=== PATIENT | female | born 1975 | race Caucasian/White ===

== ENCOUNTER 2022-09-27 07:57 | Inpatient (IN) | payer OTHER ==
--- OUTSIDE RECORDS SUMMARY | 2022-09-27 08:08 | XMS REPORT | Continuity of Care Document ---
:1975 Author Organization [facility] t Address [address] [place] [address] Care Team Providers Name Role Phone Jonathon De Jesus MD Primary Care Physician LIYAH LINDA Attending Clinician Unavailable Hiwot Gilbert MA Attending Clinician Unavailable Zeus Li MD Attending Clinician _SEFP_Chano_Candi Attending Clinician Unavailable Jonathon De Jesus Attending Clinician [phone] Marivel Zaidi Attending Clinician [phone] Jer Wagner MD Attending Clinician JER WAGNER Attending Clinician Unavailable Doctor Unassigned, [place] Attending Clinician Unavailable KELLY ESCOBAR Attending Clinician Unavailable Kelly Escobar MD Attending Clinician Belinda VERGARA Attending Clinician Unavailable Belinda Gleason Attending Clinician Liyah Linda MD Attending Clinician JOSE HUANG Attending Clinician Unavailable GC_SEFP_[place]_N Attending Clinician Unavailable Jonah Bojorquez Attending Clinician Jose Huang DDS Attending Clinician Home ALVAREZ Sebastiannoa Estevez Attending Clinician Lillian Busby Attending Clinician Unavailable Jc Fox MD Attending Clinician LIYAH LINDA Admitting Clinician Unavailable GC_SEFP_Rivera_A Admitting Clinician Unavailable KELLY ESCOBAR Admitting Clinician Unavailable LORNE_[place]_N Admitting Clinician Unavailable Liyah Linda MD Admitting Clinician Lillian Busby Admitting Clinician Unavailable Payers Payer Name Policy Type Policy Number Effective Date Expiration Date S marleen [facility] DUAL [id number] 2020 COMP HMO D SNP 00:00:00 MEDICAID OF [place] [id number] 2016 00:00:00 [facility] - [id number] 2021 [facility] 00:00:00 (MEDICARE REPLACEMENT/ADVANTA GE - HMO) [facility] MEDICARE [id number] COMPLETE (MEDICARE REPLACEMENT HMO) [employer] MEDICARE ADV [id number] 2016 00:00:00 Problems Condition Condition Condition Status Onset Resolution Last Treating Co mments Source Name Details Category Date Date Treatment Clinician Date Right Right Disease Active 2021-09 [facility] renal renal 11-10 stone stone 00:00: Hospita 00 l Arterioscl Arterioscl Disease Active 2021-09 M [facility] erotic erotic 11-10 st vascular vascular 00:00: Hospit a disease disease 00 l Personal Personal Disease Active 2021-09 [facility] di history of history of 10-04 kidney kidney 00:00: Hospita stones stones 00 l Flank pain Flank pain Disease Active 2021-09 M ethodi 10-04 st 00:00: Hospita 00 l Incontinen Incontinen Disease Active 2021-09 M ethodi ce of ce of 1-16 st feces feces 00:00: Hospita 00 l Acute Acute Problem Active 2021-09 [facility] urinary Urinary 0-27 Medical tract Tract 00:00: infection Infection 00 Right Right Problem Active 2021-09 [facility] upper Upper 0-27 Medical quadrant Quadrant 00:00: pain Pain 00 Impaired Impaired Problem Active 2021-09 [facility] a fasting Fasting 0-27 Medical glycemia Glycemia 00:00: 00 Kidney Kidney Problem Active 2021-09 [facility] stone Stone 0-24 Medical 00:00: 00 Anxiety Anxiety Problem Active [facility] 9-08 Medical 00:00: 00 Chest pain Chest Pain Problem Active P [facility] 7-30 Medical 00:00: 00 Drug Drug Disease Active [facility] overdose, overdose, 3-03 [place] accidental [place] Medical unintentio unintentio Br anch nal, nal, initial initial encounter encounter Altered Altered Disease Active Univers mental mental 3-03 ity of status status 00:00: [place] [facility] Hyperkalem Hyperkalem Disease Active U nivers ia ia 3-03 ity of 00:00: [place] 00 [facility] Chronic Chronic Problem Active [facility] diarrhea Diarrhea 9-06 Medica l 00:00: 00 Hyperglyce Hyperglyce Problem Active [facility] ken ken 3-04 Medical 00:00: 00 Candidiasi Candidiasi Problem Active [facility] s of s of 2-25 Medical vagina Vagina 00:00: 00 Thyroid Thyroid Problem Active [facility] nodule Nodule 2-25 Medical 00:00: 00 Bilateral Bilateral Disease Active Uni vers foot-drop foot-drop 2-25 ity of 00:00: [place] 00 Medical Branch Insomnia Insomnia Problem Active [facility] a 2-22 Medical 00:00: 00 Chronic Chronic Problem Active [facility] sinusitis Sinusitis 2-22 Medi harsh 00:00: 00 Persistent Persistent Problem Active [facility] insomnia Insomnia 2-15 Medica l 00:00: 00 Sinusitis Sinusitis Problem Active 0 [facility] via 1-08 Medical 00:00: 00 Hypertrigl Hypertrigl Problem Active [facility] yceridemia yceridemia 9-06 Me dical 00:00: 00 Screening Screening Problem Active [facility] via mammograph Mammograph 05-16 Me dical y y 00:00: 00 Hypertensi Hypertensi Problem Active [facility] ve ve 8-24 Medical disorder Disorder 00:00: 00 Injury due Injury Due Problem Active [facility] to suicide to Suicide 04-09 Me dical attempt Attempt 00:00: 00 Chronic Chronic Problem Active [facility] inflammato Inflammato 7 Me dical ry ry 00:00: 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 Morbid Morbid Disease Active [facility] obesity obesity [address] [facility] 00:00: Hospita 00 l Urinary Urinary Disease Active [facility] tract tract [address] infection infection 00:00: Hosp silvia without without 00 l hematuria hematuria NEETU NEETU Disease Active [facility] (stress (stress [address] urinary urinary 00:00: Hospita incontinen incontinen 00 l ce, ce, female) female) Gastroesop Gastroesop Problem Active [facility] hageal hageal 6-16 Medical reflux Reflux 00:00: disease Disease 00 without without esophagiti Esophagiti s s Lumbar Lumbar Disease Active [facility] spondylosi spondylosi 6-16 it y of s s 00:00: [place] 00 [facility] Branch Gastroesop Gastroesop Disease Active U nivers hageal hageal 6-16 ity of reflux reflux 00:00: [place] disease disease 00 Medical Branch Lateral Lateral Disease Active 2015-09 [facility] epicondyli epicondyli 2-12 it y of tis tis 00:00: Medical Branch Spasm of Spasm of Problem Active 2015-09 [facility] a back Back 1-22 Medical muscles Muscles 00:00: 00 Vitamin D Vitamin D Problem Active [facility] via deficiency Deficiency 5-25 Me dical 00:00: 00 Lack of Lack of Disease Active Univers energy energy 5-25 ity of 00:00: [place] [facility] Fibromyalg Fibromyalg Problem Active [facility] ia ia 3-23 Medical 00:00: 00 Endometrio Endometrio Problem Active [facility] sis of sis of 2-23 Medical uterus Uterus 00:00: 00 Menopause Menopause Problem Active [facility] via present Present 11-11 Medical 00:00: 00 Pure Pure Problem Active 2014-09 [facility] hyperchole Hyperchole 10-13 Me dical sterolemia sterolemia 00:00: 00 Generalize Generalize Problem Active 2014-09 [facility] d anxiety d Anxiety 10-13 [facility] harsh disorder Disorder 00:00: 00 Restless Restless Problem Active 2014-09 [facility] legs Legs 10-13 Medical 00:00: 00 Mild Mild Problem Active 2014-09 [facility] intermitte Intermitte 10-13 Me dical nt asthma nt Asthma 00:00: 00 Lumbago Lumbago Problem Active 2014-09 [facility] with with 10-13 Medical sciatica Sciatica 00:00: 00 Morbid Morbid Problem Active [facility] obesity Obesity 05-13 Medical 00:00: 00 Long-term Long-term Problem Active [facility] via drug Drug 03-14 Medical therapy Therapy 00:00: 00 Patient Patient Problem Active [facility] encounter Encounter 03-14 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 5-20 Me dical neuropathy Neuropathy 00:00: 00 Spondylosi Spondylosi Problem Active [facility] s with s with 5-20 Medical myelopathy Myelopathy 00:00: 00 Anxiety Anxiety Disease Active Univers 5-20 ity of 00:00: [place] 00 Medical Branch Pernicious Pernicious Problem Active [facility] anemia Anemia 6-24 Medical 00:00: 00 Goiter Goiter Problem Active [facility] Medical Anemia Anemia Problem Active [facility] Medical Recurrent Recurrent Problem Active [facility] via major Major Medical depression Depression Tobacco Tobacco Problem Active [facility] user User Medical Disorder Disorder Problem Active [facility] a of brain of Brain Medica l Asthma Asthma Problem Active [facility] Medical Respirator Respirator Problem Active [facility] y failure y Failure [facility] Acute Acute Problem Active [facility] renal Renal Medical failure Failure syndrome Syndrome Chronic Chronic Problem Active [facility] kidney Kidney Medical disease Disease Chronic Chronic Problem Active [facility] back pain Back Pain [facility] Rhabdomyol Rhabdomyol Problem Active [facility] ysis ysis Medical Syncope Syncope Problem Active [facility] Medical ALT (SGPT) ALT (SGPT) Problem Active [facility] level Level Medical raised Raised Occult Occult Problem Active [facility] blood in Blood in Medica l stools Stools Accidental Accidental Problem Active [facility] drug Drug Medical overdose Overdose Polypharma Polypharma Problem Active [facility] cy cy Medical Allergies, Adverse Reactions, Alerts Allergy Allergy Status Severity Reaction(s) Onset Inactive Treating Comm ents Source Name Type Date Date Clinician Nsaids Propensi Active Other - See Cannot Uni vers (Non-Frank ty to comments 11-19 take due ity of roidal adverse 00:00: to being [place] Anti-Inf reaction 00 on blood Medi harsh lammator s to pressure Branch y Drug) drug medicatio n NSAIDS Drug Active High Other-Cmnt Univer s (NON-FRANK Class 3-03 ity of ROIDAL 00:00: [place] ANTI-INF 00 Medical LAMMATOR Branch Y DRUG) Nsaids Propensi Active Other (See Cannot Meth alexandra (Non-Frank ty to Comments) 3-[address] roidal adverse 00:00: to being Hospita Anti-Inf reaction 00 on blood l lammator s to pressure y Drug) drug medicatio n amitript DA Active [facility] amitript DA Active SV PATIENT ADRIENNE [place] STATES IT 04-10 [facility] MAKES HER 00:00: d VERY 00 Medical ANGRESSIVE Center AMITRIPT DRUG Active High Unknown-Cmnt Un ynes ARAMBULA INGREDI 12-18 ity of 00:00: [place] 00 Medical Branch Amitript Drug Active Other - See Patient Un ynes [place] Allergy comments 12-18 stated ity of 00:00: made her [place] 00 angry Medical wanting Branch to hurt herself and others Amitript Propensi Active Other (See Patient M chuy [place] ty to Comments) 12-[address] adverse 00:00: made her Hospita reaction 00 angry l s to wanting drug to hurt herself and others AMITRIPT Allergy Active Other [facility] SAAVEDRAINE to 12-18 Medical substanc 00:00: e 00 Amitript Allergy Active Other [facility] saavedraine to 12-18 Medical substanc 00:00: e 00 Family History Family Member Diagnosis Comments Start Date Stop Date Source Natural father [facility] Natural mother [facility] Social History Social Habit Start Date Stop Date Quantity Comments Source History of Current smoker [facility] tobacco use Exposure to Not sure [facility]-CoV-2 [facility] (event) [place] Alcohol intake 2022-09-09 2022-09-09 [facility] 00:00:00 00:00:00 non-drinker of alcohol (finding) Tobacco Comment 2020-11-28 2020-11-28 vaps [facility] y of 00:00:00 00:00:00 [facility] Tobacco use and 2018-01-11 2018-01-11 Smokeless tobacco [facility] exposure 00:00:00 00:00:00 non-user Sex [birth year] [facility] 00:00:00 00:00:00 Smoking Status Start Date Stop Date Source Light Tobacco Smoker Fa[facility]o Medi harsh Current every day 2020-11-28 00:[facility] Ex-smoker 2018-01-11 00:00:00 2018-01-11 00:00:00 [facility] Medications Ordered Filled Start Stop Current Ordering Indication Dosage Frequency Signature Comments Components Source Medication Medication Date Date Medication? Clinician (SIG) Name Name escarmenlone 2021-09 Yes 1 tablet Me basilio (Lunesta) 3 2-[address] mg tablet 10:03: y before Hosp silvia 54 bedtime l TiZANidine 2021-09 Yes 4mg 1 capsule Me basilio (Zanaflex) 2-22 ([address] 4 MG 10:03: total). Hospita capsule 53 l PARoxetine 2021-09 Yes 1 tablet Met hodi (PaxiL) 40 2-[address] MG tablet 10:03: morning Hospi ta 53 l naloxegoL 2021-09 Yes 1 tablet Meth alexandra (Movantik) 2-[address] 25 mg 10:03: morning Hospita tablet 53 l tablet levothyroxi 2021-09 Yes 25ug 1 tablet Me milaodi ne 2-22 ([address] (Synthroid) 10:03: total). Hos cayla 25 mcg 53 l tablet diclofenac 2021-09 Yes TAKE 1 Metho di (VOLTAREN) 1-[address] 75 MG EC 00:00: TWICE A Hospit a tablet 00 DAY BY FOR l 22 DAYS. Flovent HFA 2021-09 Yes USE 1 PUFF [facility] 110 1-[address] mcg/actuati 00:00: DAY Hosp silvia on inhaler 00 NEEDED l fenofibrate 2021-09 Yes 160mg QD Take 1 Met hodi (LOFIBRA) -[address] 160 MG 00:00: (160 mg Hospita tablet 00 total) by l mouth daily. levoFLOXaci 2021-09- No 500mg QD Take 1 Me milaodi n - 12- tablet st (Levaquin) 00:00: 05:59 (500 mg Hos cayla 500 MG 00 :00 total) by l tablet mouth daily for 7 days. PARoxetine 2021-09- No Take 1 Meth alexandra (PAXIL) 40 1-16 11-[address] MG tablet 14:46: 00:00 every day Ho spita 43 :00 by oral l route. tiZANidine 2021-09- No TAKE 2 Meth alexandra (ZANAFLEX) 1-16 11-16 TABLET(S) st 4 MG tablet 14:42: 00:00 3 TIMES A Hospita 47 :00 DAY BY l ORAL ROUTE FOR 30 DAYS. simvastatin 2021-09- No Take 1 Met hodi (ZOCOR) 10 -16 11-[address] MG tablet 14:42: 00:00 every day Ho spita 43 :00 by oral l route at bedtime. lisinopril 2021-09- No Take 1 Meth alexandra (PRINIVIL,Z -16 11-[address] ESTRIL) 10 14:42: 00:00 every day H ospita mg tablet 33 :00 by oral l route. levothyroxi 2021-09- No Take 1 Met hodi ne -16 11-[address] (SYNTHROID, 14:42: 00:00 every day Hospita LEVOXYL) 25 30 :00 by oral l mcg tablet route. diazePAM 2021-09- No Take 1 Method i (VALIUM) 5 -16 11-[address] MG tablet 14:42: 00:00 twice a Hosp silvia 26 :00 day by l oral route. diclofenac 2021-09- No diclofenac [facility] (VOLTAREN) -16 -[address] 50 MG EC 14:42: 00:00 mg Hospita tablet 26 :00 tablet,del l ayed release TAKE 1 TABLET BY MOUTH TWICE A DAY FOR 28 DAYS cyclobenzap 2021-09- No TAKE 1 Met hodi rine -16 11-[address] (FLEXERIL) 14:42: 00:00 MOUTH Hospi ta 10 mg 25 :00 THREE l tablet TIMES DAILY ARIPiprazol 2021-09- No Take 1 Met hodi e (ABILIFY) -16 11-[address] 2 MG tablet 14:42: 00:00 times a Ho spita 21 :00 day by l oral route. traZODone 2021-09 Yes trazodone Met hodi (DESYREL) 1-[address] 50 MG 13:43: tablet Hospita tablet 46 TAKE 1 l TABLET BY MOUTH EVERY DAY NEEDED FOR 90 DAYS ferrous 2021-09 Yes ferrous [facility] sulfate 325 1-[address] (65 FE) MG 13:43: 325 mg (65 H ospita tablet 45 mg iron) l tablet TAKE 1 TABLET BY MOUTH EVERY DAY dexlansopra 2021-09 Yes 60mg QD Take 1 Meth alexandra zole 1-[address] (DEXILANT) 00:00: (60 mg Hospi ta 60 mg 00 total) by l capsule mouth daily. atorvastati 2021-09 Yes 40mg QD Take 1 Meth alexandra n (LIPITOR) 0-17 tablet (40 st 40 mg 00:00: mg total) Hospita tablet 00 by mouth l daily. losartan 2021-09 Yes 100mg QD Take 1 Method i (COZAAR) 0-[address] 100 MG 00:00: (100 mg Hospita tablet 00 total) by l mouth daily. amLODIPine 2021-09 Yes 10mg QD Take 1 Metho di (NORVASC) 0-06 tablet (10 st 10 mg 00:00: mg total) Hospita tablet 00 by mouth l every morning. hydroCHLORO Yes 12.5mg QD Take 1 Me thodi thiazide 8-[address] (HYDRODIURI 00:00: (12.5 mg Ho spita L) 12.5 MG 00 total) by l tablet mouth daily. HYDROcodone Yes 7.5{tbl Take Uni vers -acetaminop 3-03 } 7.5-325 ity o f hen 7.5-325 15:46: tablets by [place] mg per 12 mouth 3 Medical tablet (three) Branch times daily as needed. HYDROcodone Yes 7.5{tbl Take Uni vers -acetaminop 3-03 } 7.5-325 ity o f hen 7.5-325 15:46: tablets by [place] mg per 12 mouth 3 Medical tablet (three) Branch times daily as needed. HYDROcodone 0 Yes 7.5{tbl Take Uni vers -acetaminop 2-22 } 7.5-325 ity o f hen 7.5-325 00:00: tablets by [place] mg per 00 mouth 3 Medical tablet (three) Branch times daily as needed. HYDROcodone 0 Yes 7.5{tbl Take Uni vers -acetaminop 2-22 } 7.5-325 ity o f hen 7.5-325 00:00: tablets by [place] mg per 00 mouth 3 Medical tablet (three) Branch times daily as needed. ARIPiprazol Yes Take 1 Meth alexandra e (ABILIFY) 2-[address] 2 MG tablet 11:56: times a Hos cayla 18 day by l oral route. cyclobenzap Yes TAKE 1 Meth alexandra rine 2-[address] (FLEXERIL) 11:56: MOUTH Hospit a 10 mg 18 THREE l tablet TIMES DAILY pregabalin Yes TAKE 1 Metho di (LYRICA) 2-[address] 150 MG 11:56: MOUTH Hospita capsule 18 THREE l TIMES DAILY HYDROcodone Yes Take 1 Meth alexandra -acetaminop 2-[address] hen (NORCO) 11:56: every 6 Hos cayla 10-325 mg 18 hours by l per tablet oral route as needed for 30 days. diazePAM Yes Take 1 [facility] (VALIUM) 5 2-[address] MG tablet 11:56: twice a Hospi ta 18 day by l oral route. lisinopril Yes Take 1 Metho di (PRINIVIL,Z 2-[address] ESTRIL) 10 11:56: every day Ho spita mg tablet 18 by oral l route. levothyroxi Yes Take 1 Meth alexandra ne 2-[address] (SYNTHROID, 11:56: every day H ospita LEVOXYL) 25 18 by oral l mcg tablet route. pregabalin Yes TAKE 1 Metho di (LYRICA) 2-[address] 150 MG 11:56: MOUTH Hospita capsule 18 THREE l TIMES DAILY HYDROcodone Yes Take 1 Meth alexandra -acetaminop 2-[address] hen (NORCO) 11:56: every 6 Hos cayla 10-325 mg 18 hours by l per tablet oral route as needed for 30 days. simvastatin Yes Take 1 Meth alexandra (ZOCOR) 10 2-[address] MG tablet 11:56: every day Hos cayla 18 by oral l route at bedtime. tiZANidine Yes TAKE 2 Metho di (ZANAFLEX) 2-02 TABLET(S) st 4 MG tablet 11:56: 3 TIMES A H ospita 18 DAY BY l ORAL ROUTE FOR 30 DAYS. PARoxetine Yes Take 1 Metho di (PAXIL) 40 2-[address] MG tablet 11:56: every day Hos cayla 18 by oral l route. pregabalin 2020-09 Yes 150mg Take 150 Un ynes 150 mg 2-16 mg by ity of capsule 00:00: mouth 3 (three) Medical times Branch daily. pregabalin 2020-09 Yes 150mg Take 150 Un ynes 150 mg 2-16 mg by ity of capsule 00:00: mouth 3 (three) Medical times Branch daily. ceftriaxone ceftriaxone 2020-09 No ceftriaxon [facility] 1 gram 1 gram 1-23 e 1 gram Medical solution solution 12:14: solution for for 21 for injectionTa injectionTa injectionT ke 1 g by ke 1 g by gabriela 1 g by injection injection injection route. route. route. azelastine Yes [id number] 1{spray Use 1 Univers 137 mcg 6-30 } [place] in ity of (0.1 %) 00:00: each [place] nasal spray 00 nostril 2 Med ical (two) Branch times daily. Use in each nostril as directed azelastine Yes [id number] 1{spray Use 1 Univers 137 mcg 6-30 } [place] in ity of (0.1 %) 00:00: each [place] nasal spray 00 nostril 2 Med ical (two) Branch times daily. Use in each nostril as directed cloNIDine Yes [id number] .1mg Take 1 Un ynes 0.1 mg 4-27 tablet by ity of tablet 00:00: mouth 2 (two) Medical times Branch daily as needed for Other (bp > 180 , HR > 70). cloNIDine Yes [id number] .1mg Take 1 Un ynes 0.1 mg 4-27 tablet by ity of tablet 00:00: mouth 2 (two) Medical times Branch daily as needed for Other (bp > 180 , HR > 70). OCTAGAM 10 Yes Univers % Soln 4-13 ity of 00:00: 00 Medical Branch OCTAGAM 10 Yes Univers % Soln 4-13 ity of 00:00: Medical Branch ferrous Yes ferrous Univers sulfate 325 3-26 sulfate ity o f mg (65 mg 08:05: 325 mg (65 [place] iron) 58 mg iron) Medical tablet tablet Branch TAKE 1 TABLET BY MOUTH EVERY DAY traZODone Yes 1{tbl} Take 1 Univ ers 50 mg 3-26 tablet by ity of tablet 08:05: mouth at [place] 58 bedtime. Medical Branch ferrous Yes ferrous Univers sulfate 325 3-26 sulfate ity o f mg (65 mg 08:05: 325 mg (65 [place] iron) 58 mg iron) Medical tablet tablet Branch TAKE 1 TABLET BY MOUTH EVERY DAY traZODone Yes 1{tbl} Take 1 Univ ers 50 mg 3-26 tablet by ity of tablet 08:05: mouth at [place] 58 bedtime. Medical Branch MULTIVITAMI Yes 1{capsu Take 1 U nivers N ORAL 3-18 le} capsule by ity of 11:52: mouth [place] 33 daily. Medical Branch Cholecalcif Yes D3-1999 50 Univers larry, 3-18 mcg (2,000 ity of Vitamin D3, 11:52: unit) [place] 50 mcg 33 capsule Medical (2,000 Take 1 Branch unit) capsule capsule every day by oral route. cyanocobala Yes 1000ug 1,000 mcg Univers min 1,000 3-18 by ity of mcg/mL 11:52: Intramuscu [place] injection 33 lar route Medic al every 4 Branch (four) weeks. Dexlansopra Yes Dexilant Un ynes zole 3-18 60 mg ity of (DEXILANT) 11:52: capsule, [place] as 60 mg 33 delayed Medical capsule release Branch Take 1 capsule every day by oral route for 30 days. albuterol Yes Ventolin Univ ers (VENTOLIN 3-18 HFA 90 ity of HFA) 90 11:52: mcg/actuat [place] mcg/actuati 33 ion Medical on inhaler aerosol Branch inhaler busPIRone Yes buspirone Uni vers 10 mg 3-18 10 mg ity of tablet 11:52: tablet [place] 33 Medical Branch MULTIVITAMI Yes 1{capsu Take 1 U nivers N ORAL 3-18 le} capsule by ity of 11:52: mouth [place] 33 daily. Medical Branch Cholecalcif 2021-0 Yes D3-1999 50 Univers larry, 3-18 mcg (2,000 ity of Vitamin D3, 11:52: unit) [place] 50 mcg 33 capsule Medical (2,000 Take 1 Branch unit) capsule capsule every day by oral route. cyanocobala Yes 1000ug 1,000 mcg Univers min 1,000 3-18 by ity of mcg/mL 11:52: Intramuscu [place] injection 33 lar route Medic al every 4 Branch (four) weeks. Dexlansopra Yes Dexilant Un ynes zole 3-18 60 mg ity of (DEXILANT) 11:52: capsule, [place] as 60 mg 33 delayed Medical capsule release Branch Take 1 capsule every day by oral route for 30 days. albuterol Yes Ventolin Univ ers (VENTOLIN 3-18 HFA 90 ity of HFA) 90 11:52: mcg/actuat [place] mcg/actuati 33 ion Medical on inhaler aerosol Branch inhaler busPIRone Yes buspirone Uni vers 10 mg 3-18 10 mg ity of tablet 11:52: tablet [place] [id number] Medical Branch HYDROcodone Yes Take 1/2 Un ynes -acetaminop 3-18 to 1 tab ity of hen (NORCO) 00:00: PO every [place] 10-325 mg 00 4-6 hrs as Medi harsh tablet needed for Branch severe pain; use tylenol or ibuprofen for mild to moderate pain Indication s: postop pain mupirocin 2 Yes [id number] Apply Univers % ointment 3-18 inside ity of 00:00: both nasal [place] 00 cavities Medical using q Branch tip 2-3 times daily after using saline spray/sinu s rinse HYDROcodone Yes Take 1/2 Un ynes -acetaminop 3-18 to 1 tab ity of hen (NORCO) 00:00: PO every [place] 10-325 mg 00 4-6 hrs as Medi harsh tablet needed for Branch severe pain; use tylenol or ibuprofen for mild to moderate pain Indication s: postop pain mupirocin 2 Yes [id number] Apply Univers % ointment 3-18 inside ity of 00:00: both nasal [place] 00 cavities Medical using q Branch tip 2-3 times daily after using saline spray/sinu s rinse HYDROcodone Yes 1{tbl} Take 1 Un ynes -acetaminop 1-20 tablet by ity of hen 10-325 00:00: mouth as [place] as mg tablet 00 needed. Medical Branch HYDROcodone Yes 1{tbl} Take 1 Un ynes -acetaminop 1-20 tablet by ity of hen 10-325 00:00: mouth as [place] as mg tablet 00 needed. Medical Branch chlorhexidi Yes [id number] 15mL Swish and Univers ne 1-06 spit out ity of (PERIDEX) 00:00: 15 mL 2 [place] 0.12 % 00 (two) Medical mouthwash times Branch daily. methylPREDN Yes [id number] Take by Univers ISolone 4 1-06 mouth ity of mg tablets 00:00: SEE-INSTRU [place] 00 CTIONS. Medical follow Branch package directions chlorhexidi Yes [id number] 15mL Swish and Univers ne 1-06 spit out ity of (PERIDEX) 00:00: 15 mL 2 [place] 0.12 % 00 (two) Medical mouthwash times Branch daily. methylPREDN Yes [id number] Take by Univers ISolone 4 1-06 mouth ity of mg tablets 00:00: [place]INSTRU [place] 00 CTIONS. Medical follow Branch package directions cyclobenzap 2019-09 Yes 10mg Take 10 mg [facility] 10 mg 2-22 by mouth ity o f tablet 00:00: as needed. [place] [facility] cyclobenzap 2019-09 Yes 10mg Take 10 mg [facility] rine 10 mg 2-22 by mouth ity o f tablet 00:00: as needed. [place] [facility] FLOVENT HFA 2019-09 Yes [facility] 110 2-21 ity of mcg/actuati 00:00: [place] on inhaler Medical Branch FLOVENT HFA 2019-09 Yes [facility] 110 2-21 ity of mcg/actuati 00:00: [place] on inhaler [facility] metoprolol 2019-09 Yes metoprolol M ethodi tartrate 2-[address] (LOPRESSOR) 00:00: 50 mg Hospi ta 50 mg 00 tablet l tablet TAKE 1 TABLET TWICE A DAY BY ORAL ROUTE FOR 90 DAYS. albuterol 2019-09 Yes [facility] 90 2-18 ity of mcg/actuati 00:00: [place] on inhaler 00 Medical Branch metoprolol 2019-09 Yes 1{tbl} Take 1 [facility] vers tartrate 50 2-18 tablet by ity of mg tablet 00:00: mouth 2 (two) Medical times Branch daily. albuterol 2019-09 Yes [facility] 90 2-18 ity of mcg/actuati 00:00: [place] on inhaler 00 Medical Branch metoprolol 2019-09 Yes 1{tbl} Take 1 [facility] vers tartrate 50 2-18 tablet by ity of mg tablet 00:00: mouth 2 (two) Medical times Branch daily. busPIRone 2019-09 Yes buspirone [facility] (BUSPAR) 10 2-[address] [facility] tablet 00:00: tablet [facility] 00 TAKE 1 l TABLET TWICE A DAY BY ORAL ROUTE FOR 90 DAYS. busPIRone 2019-09 Yes 1{tbl} Take 1 [facility] ers 10 mg 2-03 tablet by ity of tablet 00:00: mouth 2 (two) Medical times Branch daily. busPIRone 2019-09 Yes 1{tbl} Take 1 [facility] ers 10 mg 2-03 tablet by ity of tablet 00:00: mouth 2 (two) Medical times Branch daily. DULoxetine 2019-09 Yes 1{capsu Take 1 [facility] 60 mg 2-01 le} capsule by ity of capsule 00:00: mouth [place] 00 every Medical morning. Branch Fenofibrate 2019-09 Yes 1{tbl} Take 1 [facility] 160 mg 2-01 tablet by ity of tablet 00:00: mouth [place] 00 daily. Medical Branch DULoxetine 2019-09 Yes 1{capsu Take 1 [facility] 60 mg 2-01 le} capsule by ity of capsule 00:00: mouth 00 every Medical morning. Branch Fenofibrate 2019-09 Yes 1{tbl} Take 1 [facility] 160 mg 2-01 tablet by ity of tablet 00:00: mouth [place] 00 daily. Medical Branch furosemide 2019-09 Yes 1{tbl} Take 1 [facility] vers 20 mg 1-19 tablet by ity of tablet 00:00: mouth as 00 needed. Medical Swelling [facility] furosemide 2019-09 Yes 1{tbl} Take 1 [facility] vers 20 mg 1-19 tablet by ity of tablet 00:00: mouth as 00 needed. Medical Swelling [facility] atorvastati 2019-09 Yes 1{tbl} Take 1 [facility] n 40 mg 0-31 tablet by ity of tablet 00:00: mouth [place] 00 daily. Medical Branch atorvastati 2019-09 Yes 1{tbl} Take 1 [facility] n 40 mg 0-31 tablet by ity of tablet 00:00: mouth 00 daily. Medical Branch DULoxetine 2019-09 Yes 20mg QD Take 1 [facility] di (CYMBALTA) 0-[address] 20 MG 00:00: (20 mg [facility]osp[facility] capsule 00 total) by l mouth nightly. DULoxetine 2019-09 Yes 1{capsu Take 1 [facility] 20 mg 0-30 le} capsule by ity of capsule 00:00: mouth at [place] bedtime. Medical Branch lisinopriL 2019-09 Yes 1{tbl} Take 1 [facility] vers 20 mg 0-30 tablet by ity of tablet 00:00: mouth 00 daily. Medical Branch DULoxetine 2019-09 Yes 1{capsu Take 1 [facility] 20 mg 0-30 le} capsule by ity of capsule 00:00: mouth at [place] bedtime. Medical Branch lisinopriL 2019-09 Yes 1{tbl} Take 1 [facility] vers 20 mg 0-30 tablet by ity of tablet 00:00: mouth 00 daily. Medical Branch GAMMAGARD 2019-09 Yes [facility] LIQUID 10 % 0-20 ity of injection 00:00: 00 Medical Branch GAMMAGARD 2019-09 Yes [facility] LIQUID 10 % 0-20 ity of injection 00:00: [place] 00 Medical Branch pregabalin 2019-09 Yes 1{capsu Take 1 [facility] 150 mg 0-14 le} capsule by ity of capsule 00:00: mouth 3 (three) Medical times Branch daily. pregabalin 2019-09 Yes 1{capsu Take 1 [facility] 150 mg 0-14 le} capsule by ity of capsule 00:00: mouth 3 (three) Medical times Branch daily. omeprazole Yes TAKE 1 Metho di (PriLOSEC) 3-12 CAPSULE(S) st 40 MG 00:00: EVERY DAY [facility]osp[facility] capsule 00 BY ORAL l ROUTE. ipratropium Yes USE 1 VIAL [facility] -albuterol 3-[address] (DUO-NEB) 00:00: NEBULIZER [facility] 0.5-2.5 00 EVERY 6 l mg/mL HOURS nebulizer NEEDED omeprazole 2017- Yes TAKE 1 Metho di (PriLOSEC) 3-12 CAPSULE(S) st 40 MG 00:00: EVERY DAY [facility] capsule 00 BY ORAL l ROUTE. ipratropium 2017- Yes USE 1 VIAL [facility] -albuterol 3-[address] (DUO-NEB) 00:00: NEBULIZER [facility] 0.5-2.5 00 EVERY 6 l mg/mL HOURS nebulizer NEEDED cyclobenzap 2017- Yes 10mg [id number] Take 10 mg [facility] rine -09 [id number] [address] mouth [address] (FLEXERIL) 00:00: 3D (three) [facility] 10 mg 00 times a l tablet day. tiZANidine Yes TAKE 2 Metho di (ZANAFLEX) 3-09 TABLET(S) st 4 MG tablet 00:00: 3 TIMES A [facility] 00 DAY BY l ORAL ROUTE FOR 30 DAYS. nitrofurant Yes TAKE 1 Meth alexandra oin, - CAPSULE(S) st macrocrysta 00:00: EVERY DAY [facility]sp[facility] l-monohydra 00 BY ORAL l te, ROUTE FOR (MACROBID) 30 DAYS. 100 MG capsule cyclobenzap Yes 10mg [id number] Take 10 mg [facility] rine -09 [id number] by mouth 3 [address] (FLEXERIL) 00:00: 3D (three) [facility] 10 mg 00 times a l tablet day. tiZANidine 2021- No TAKE 2 Meth alexandra (ZANAFLEX) -05 30-16 TABLET(S) st 4 MG tablet 00:00: 00:00 3 TIMES A Hosp[facility] 00 :00 DAY BY l ORAL ROUTE FOR 30 DAYS. nitrofurant 2021- No TAKE 1 [facility] oin, -05 30-16 CAPSULE(S) st macrocrysta 00:00: 00:00 EVERY DAY [facility]osp[facility] l-monohydra 00 :00 BY ORAL l te, ROUTE FOR (MACROBID) 30 DAYS. 100 MG capsule rOPINIRole Yes TAKE 1 Metho di (REQUIP) 1 2-12 TABLET(S) st MG tablet 00:00: EVERY DAY [facility] 00 BY ORAL l ROUTE. rOPINIRole 2021- No TAKE 1 Meth alexandra (REQUIP) 1 2-12 11-16 TABLET(S) st MG tablet 00:00: 00:00 EVERY DAY Ho [facility] 00 :00 BY ORAL l ROUTE. phentermine Yes 37.5mg QD Take 37.5 [facility] (ADIPEX-P) 2-[address] 37.5 mg 00:00: mouth [facility]osp[facility] tablet 00 daily. l phentermine 2021- No 37.5mg QD Take 37.5 [facility] (ADIPEX-P) 2-09 11-[address] 37.5 mg 00:00: 00:00 mouth [facility]osp[facility] tablet 00 :00 daily. l PROAIR HFA Yes INHALE 2 Met [facility] 90 1-[address] mcg/actuati 00:00: (S) EVERY H [facility]sp[facility] on inhaler 00 4-6 HOURS l BY INHALATION ROUTE. PROAIR HFA Yes INHALE 2 [facility] 90 1-[address] mcg/actuati 00:00: (S) EVERY H [facility] on inhaler 00 4-6 HOURS l BY INHALATION ROUTE. pregabalin pregabalin No 1capsul TID pregabalin [facility] 150 mg 150 mg e(s) 150 mg Medical capsule capsule capsule Take 1 Take 1 Take 1 capsule 3 capsule 3 capsule 3 times a day times a day times a by oral by oral day by route as route as oral route needed for needed for as needed 90 days. 90 days. for 90 days. Pyridium Pyridium No 1 TID Pyridium [facility] via 200 mg 200 mg 200 mg Medical tablet Take tablet Take tablet 1 tablet 3 1 tablet 3 Take 1 times a day times a day tablet 3 by oral by oral times a route for 2 route for 2 day by days. days. oral route for 2 days. trazodone trazodone No trazodone [facility] 50 mg 50 mg 50 mg Medical tablet Take tablet Take tablet 1 tablet 1 tablet Take 1 every day every day tablet by oral by oral every day route at route at by oral bedtime for bedtime for route at 90 days. 90 days. bedtime for 90 days. albuterol albuterol No albuterol [facility] sulfate HFA sulfate HFA sulfate Medical 90 90 HFA 90 mcg/actuati mcg/actuati mcg/actuat on aerosol on aerosol ion inhaler inhaler aerosol Inhale 2 Inhale 2 inhaler puffs every puffs every Inhale 2 6 hours by 6 hours by puffs inhalation inhalation every 6 route as route as hours by needed for needed for inhalation 90 days. 90 days. route as needed for 90 days. atorvastati atorvastati No atorvastat [facility] n 40 mg n 40 mg in 40 mg Medic al tablet Take tablet Take tablet 1 tablet 1 tablet Take 1 every day every day tablet by oral by oral every day route for route for by oral 90 days. 90 days. route for 90 days. buspirone buspirone No 1 BID buspirone [facility] 10 mg 10 mg 10 mg [facility] tablet Take tablet Take tablet 1 tablet 1 tablet Take 1 twice a day twice a day tablet by oral by oral twice a route for route for day by 90 days. 90 days. oral route for 90 days. ceftriaxone ceftriaxone No 1g ceftriaxon [facility] 1 gram 1 gram e 1 gram Medical solution solution solution for for for injection injection injection Take 1 g by Take 1 g by Take 1 g injection injection by route. route. injection route. chlorhexidi chlorhexidi No chlorhexid [facility] ne ne ine Medical gluconate gluconate gluconate 0.12 % 0.12 % 0.12 % mouthwash mouthwash mouthwash SWISH AND SWISH AND SWISH AND SPIT OUT 15 SPIT OUT 15 SPIT OUT ML 2 (TWO) ML 2 (TWO) 15 ML 2 TIMES TIMES (TWO) DAILY. DAILY. TIMES DAILY. ciprofloxac ciprofloxac No ciprofloxa [facility] in 500 mg in 500 mg rambo 500 mg Medical tablet Take tablet Take tablet 1 tablet 1 tablet Take 1 every 12 every 12 tablet hours by hours by every 12 oral route oral route hours by for 7 days. for 7 days. oral route for 7 days. clonidine clonidine No clonidine [facility] HCl 0.1 mg HCl 0.1 mg HCl 0.1 mg Medical tablet Take tablet Take tablet 1 tablet 1 tablet Take 1 with with tablet elevated BP elevated BP with elevated BP cyanocobala cyanocobala No 1mL Q1W cyanocobal [facility] min (vit min (vit tracey (vit Me dical B-12) 1,000 B-12) 1,000 B-12) mcg/mL mcg/mL 1,000 injection injection mcg/mL solution solution injection Inject 1 mL Inject 1 mL solution every week every week Inject 1 by by mL every subcutaneou subcutaneou week by s route for s route for subcutaneo 90 days. 90 days. us route for 90 days. cyclobenzap cyclobenzap No cyclobenza [facility] rine 10 mg rine 10 mg grayson 10 Medical tablet TAKE tablet TAKE mg tablet 1 TABLET BY 1 TABLET BY TAKE 1 MOUTH EVERY MOUTH EVERY TABLET BY DAY AT DAY AT MOUTH BEDTIME BEDTIME EVERY DAY NEEDED NEEDED AT BEDTIME NEEDED D3-1999 50 D3-2000 50 No 1capsul Q1D D3-1999 50 [facility] mcg (2,000 mcg (2,000 e(s) mcg (2,000 Medical unit) unit) unit) capsule capsule capsule Take 1 Take 1 Take 1 capsule capsule capsule every day every day every day by oral by oral by oral route. route. route. Dexilant 60 Dexilant 60 No Dexilant [facility] mg capsule, mg capsule, 60 mg Medical delayed delayed capsule, release release delayed TAKE 1 TAKE 1 release CAPSULE BY CAPSULE BY TAKE 1 MOUTH EVERY MOUTH EVERY CAPSULE BY DAY DAY MOUTH EVERY DAY duloxetine duloxetine No duloxetine [facility] 60 mg 60 mg 60 mg Medical capsule,del capsule,del capsule,de ayed ayed layed release release release TAKE 1 TAKE 1 TAKE 1 CAPSULE BY CAPSULE BY CAPSULE BY MOUTH EVERY MOUTH EVERY MOUTH DAY IN THE DAY IN THE EVERY DAY MORNING MORNING IN THE MORNING fenofibrate fenofibrate No fenofibrat [facility] 160 mg 160 mg e 160 mg Medical tablet TAKE tablet TAKE tablet 1 TABLET BY 1 TABLET BY TAKE 1 MOUTH EVERY MOUTH EVERY TABLET BY DAY DAY MOUTH EVERY DAY Flovent HFA Flovent HFA No Flovent [facility] 110 110 HFA 110 Medical mcg/actuati mcg/actuati mcg/actuat on aerosol on aerosol ion inhaler inhaler aerosol Inhale 1 Inhale 1 inhaler puff twice puff twice Inhale 1 a day by a day by puff twice inhalation inhalation a day by route as route as inhalation needed for needed for route as 90 days. 90 days. needed for 90 days. hydrocodone hydrocodone No hydrocodon [facility] 10 10 e 10 Medical mg-acetamin mg-acetamin mg-acetami ophen 325 ophen 325 nophen 325 mg tablet mg tablet mg tablet TAKE 1 TAKE 1 TAKE 1 TABLET BY TABLET BY TABLET BY MOUTH THREE MOUTH THREE MOUTH TIMES A DAY TIMES A DAY THREE NEEDED NEEDED TIMES A FOR PAIN FOR PAIN DAY MAX 3/DAY MAX 3/DAY NEEDED FOR PAIN MAX 3/DAY lisinopril lisinopril No lisinopril [facility] 20 mg 20 mg 20 mg [facility] tablet Take tablet Take tablet 1 tablet 1 tablet Take 1 twice a day twice a day tablet by oral by oral twice a route for route for day by 90 days. 90 days. oral route for 90 days. metoprolol metoprolol No metoprolol [facility] tartrate 50 tartrate 50 tartrate Medical mg tablet mg tablet 50 mg Take 1 Take 1 tablet tablet tablet Take 1 twice a day twice a day tablet by oral by oral twice a route for route for day by 90 days. 90 days. oral route for 90 days. phenazopyri phenazopyri No phenazopyr [facility] dine 200 mg dine 200 mg idine 200 Medical tablet Take tablet Take mg tablet 1 tablet 3 1 tablet 3 Take 1 times a day times a day tablet 3 by oral by oral times a route for 2 route for 2 day by days. days. oral route for 2 days. pregabalin pregabalin No pregabalin [facility] 150 mg 150 mg 150 mg Medical capsule capsule capsule Take 1 Take 1 Take 1 capsule 3 capsule 3 capsule 3 times a day times a day times a by oral by oral day by route as route as oral route needed for needed for as needed 90 days. 90 days. for 90 days. trazodone trazodone No trazodone [facility] 50 mg 50 mg 50 mg Medical tablet Take tablet Take tablet 1 tablet 1 tablet Take 1 every day every day tablet by oral by oral every day route at route at by oral bedtime for bedtime for route at 90 days. 90 days. bedtime for 90 days. albuterol albuterol No albuterol [facility] sulfate HFA sulfate HFA sulfate Medical 90 90 HFA 90 mcg/actuati mcg/actuati mcg/actuat on aerosol on aerosol ion inhaler inhaler aerosol Inhale 2 Inhale 2 inhaler puffs every puffs every Inhale 2 6 hours by 6 hours by puffs inhalation inhalation every 6 route as route as hours by needed for needed for inhalation 90 days. 90 days. route as needed for 90 days. atorvastati atorvastati No atorvastat [facility] n 40 mg n 40 mg in 40 mg Medic al tablet Take tablet Take tablet 1 tablet 1 tablet Take 1 every day every day tablet by oral by oral every day route for route for by oral 90 days. 90 days. route for 90 days. buspirone buspirone No buspirone [facility] 10 mg 10 mg 10 mg Medical tablet TAKE tablet TAKE tablet 1 TABLET 1 TABLET TAKE 1 TWICE A DAY TWICE A DAY TABLET BY ORAL BY ORAL TWICE A ROUTE FOR ROUTE FOR DAY BY 90 DAYS. 90 DAYS. ORAL ROUTE FOR 90 DAYS. chlorhexidi chlorhexidi No chlorhexid [facility] ne ne ine Medical gluconate gluconate gluconate 0.12 % 0.12 % 0.12 % mouthwash mouthwash mouthwash SWISH AND SWISH AND SWISH AND SPIT OUT 15 SPIT OUT 15 SPIT OUT ML 2 (TWO) ML 2 (TWO) 15 ML 2 TIMES TIMES (TWO) DAILY. DAILY. TIMES DAILY. clonidine clonidine No clonidine [facility] HCl 0.1 mg HCl 0.1 mg HCl 0.1 mg Medical tablet TAKE tablet TAKE tablet 1 TABLET BY 1 TABLET BY TAKE 1 MOUTH MOUTH TABLET BY NEEDED FOR NEEDED FOR MOUTH BLOOD BLOOD NEEDED FOR PRESSURE PRESSURE BLOOD ABOVE ABOVE PRESSURE 170/100 170/100 ABOVE 170/100 cyanocobala cyanocobala No cyanocobal [facility] min (vit min (vit tracey (vit Me dical B-12) 1,000 B-12) 1,000 B-12) mcg/mL mcg/mL 1,000 injection injection mcg/mL solution solution injection INJECT 1ML INJECT 1ML solution EVERY WEEK EVERY WEEK INJECT 1ML BY BY EVERY WEEK SUBCUTANEOU SUBCUTANEOU BY S ROUTE S ROUTE SUBCUTANEO NOT COVD NOT COVD US ROUTE 95$$ 95$$ NOT COVD 95$$ cyclobenzap cyclobenzap No cyclobenza [facility] rine 10 mg rine 10 mg grayson 10 Medical tablet TAKE tablet TAKE mg tablet 1 TABLET BY 1 TABLET BY TAKE 1 MOUTH EVERY MOUTH EVERY TABLET BY DAY FOR 30 DAY FOR 30 MOUTH DAYS DAYS EVERY DAY FOR 30 DAYS D3-1999 50 D3-2000 50 No 1capsul Q1D D3-1999 50 [facility] mcg (2,000 mcg (2,000 e(s) mcg (2,000 Medical unit) unit) unit) capsule capsule capsule Take 1 Take 1 Take 1 capsule capsule capsule every day every day every day by oral by oral by oral route. route. route. Dexilant 60 Dexilant 60 No Dexilant [facility] mg capsule, mg capsule, 60 mg Medical delayed delayed capsule, release release delayed TAKE 1 TAKE 1 release CAPSULE BY CAPSULE BY TAKE 1 MOUTH EVERY MOUTH EVERY CAPSULE BY DAY DAY MOUTH EVERY DAY diclofenac diclofenac No diclofenac [facility] sodium 50 sodium 50 sodium 50 Medical mg mg mg tablet,kris tablet,kris tablet,del yed release yed release ayed TAKE 1 TAKE 1 release TABLET BY TABLET BY TAKE 1 MOUTH EVERY MOUTH EVERY TABLET BY DAY FOR 30 DAY FOR 30 MOUTH DAYS DAYS EVERY DAY FOR 30 DAYS duloxetine duloxetine No duloxetine [facility] 60 mg 60 mg 60 mg Medical capsule,del capsule,del capsule,de ayed ayed layed release release release Take 1 Take 1 Take 1 capsule capsule capsule every day every day every day by oral by oral by oral route in route in route in the morning the morning the for 90 for 90 morning days. days. for 90 days. fenofibrate fenofibrate No fenofibrat [facility] 160 mg 160 mg e 160 mg Medical tablet TAKE tablet TAKE tablet 1 TABLET BY 1 TABLET BY TAKE 1 MOUTH EVERY MOUTH EVERY TABLET BY DAY DAY MOUTH EVERY DAY Flovent HFA Flovent HFA No Flovent [facility] 110 110 HFA 110 Medical mcg/actuati mcg/actuati mcg/actuat on aerosol on aerosol ion inhaler inhaler aerosol INHALE 1 INHALE 1 inhaler PUFF TWICE PUFF TWICE INHALE 1 A DAY BY A DAY BY PUFF TWICE INHALATION INHALATION A DAY BY NEEDED. NEEDED. INHALATION NEEDED. hydrochloro hydrochloro No hydrochlor [facility] thiazide thiazide othiazide Me dical 12.5 mg 12.5 mg 12.5 mg tablet TAKE tablet TAKE tablet 1 TABLET BY 1 TABLET BY TAKE 1 MOUTH EVERY MOUTH EVERY TABLET BY DAY FOR 30 DAY FOR 30 MOUTH DAYS DAYS EVERY DAY FOR 30 DAYS hydrocodone hydrocodone No hydrocodon [facility] 10 10 e 10 Medical mg-acetamin mg-acetamin mg-acetami ophen 325 ophen 325 nophen 325 mg tablet mg tablet mg tablet TAKE 1 TAKE 1 TAKE 1 TABLET BY TABLET BY TABLET BY MOUTH THREE MOUTH THREE MOUTH TIMES A DAY TIMES A DAY THREE NEEDED NEEDED TIMES A FOR PAIN FOR PAIN DAY MAX 3/DAY MAX 3/DAY NEEDED FOR PAIN MAX 3/DAY hydrocodone hydrocodone No hydrocodon [facility] 7.5 7.5 e 7.5 Medical mg-acetamin mg-acetamin mg-acetami ophen 325 ophen 325 nophen 325 mg tablet mg tablet mg tablet TAKE 1 TAKE 1 TAKE 1 TABLET BY TABLET BY TABLET BY MOUTH THREE MOUTH THREE MOUTH TIMES A DAY TIMES A DAY THREE NEEDED NEEDED TIMES A FOR 30 DAYS FOR 30 DAYS DAY NEEDED FOR 30 DAYS lisinopril lisinopril No lisinopril [facility] 20 mg 20 mg 20 mg Medical tablet Take tablet Take tablet 1 tablet 1 tablet Take 1 twice a day twice a day tablet by oral by oral twice a route for route for day by 90 days. 90 days. oral route for 90 days. losartan losartan No losartan [facility] via 100 mg 100 mg 100 mg Medical tablet TAKE tablet TAKE tablet 1 TABLET BY 1 TABLET BY TAKE 1 MOUTH EVERY MOUTH EVERY TABLET BY DAY FOR 30 DAY FOR 30 MOUTH DAYS DAYS EVERY DAY FOR 30 DAYS metoprolol metoprolol No metoprolol [facility] tartrate 50 tartrate 50 tartrate Medical mg tablet mg tablet 50 mg Take 1 Take 1 tablet tablet tablet Take 1 twice a day twice a day tablet by oral by oral twice a route for route for day by 90 days. 90 days. oral route for 90 days. phenazopyri phenazopyri No phenazopyr [facility] dine 200 mg dine 200 mg idine 200 Medical tablet Take tablet Take mg tablet 1 tablet 3 1 tablet 3 Take 1 times a day times a day tablet 3 by oral by oral times a route for 2 route for 2 day by days. days. oral route for 2 days. pregabalin pregabalin No pregabalin [facility] 150 mg 150 mg 150 mg Medical capsule capsule capsule Take 1 Take 1 Take 1 capsule 3 capsule 3 capsule 3 times a day times a day times a by oral by oral day by route as route as oral route needed for needed for as needed 90 days. 90 days. for 90 days. trazodone trazodone No trazodone [facility] 50 mg 50 mg 50 mg Medical tablet TAKE tablet TAKE tablet 1 TABLET BY 1 TABLET BY TAKE 1 MOUTH MOUTH TABLET BY EVERYDAY AT EVERYDAY AT MOUTH BEDTIME BEDTIME EVERYDAY AT BEDTIME albuterol albuterol No albuterol [facility] sulfate HFA sulfate HFA sulfate Medical 90 90 HFA 90 mcg/actuati mcg/actuati mcg/actuat on aerosol on aerosol ion inhaler inhaler aerosol Inhale 2 Inhale 2 inhaler puffs every puffs every Inhale 2 6 hours by 6 hours by puffs inhalation inhalation every 6 route as route as hours by needed for needed for inhalation 90 days. 90 days. route as needed for 90 days. atorvastati atorvastati No atorvastat [facility] n 40 mg n 40 mg in 40 mg Medic al tablet Take tablet Take tablet 1 tablet 1 tablet Take 1 every day every day tablet by oral by oral every day route for route for by oral 90 days. 90 days. route for 90 days. buspirone buspirone No buspirone [facility] 10 mg 10 mg 10 mg Medical tablet TAKE tablet TAKE tablet 1 TABLET 1 TABLET TAKE 1 TWICE A DAY TWICE A DAY TABLET BY ORAL BY ORAL TWICE A ROUTE FOR ROUTE FOR DAY BY 90 DAYS. 90 DAYS. ORAL ROUTE FOR 90 DAYS. chlorhexidi chlorhexidi No chlorhexid [facility] ne ne ine Medical gluconate gluconate gluconate 0.12 % 0.12 % 0.12 % mouthwash mouthwash mouthwash SWISH AND SWISH AND SWISH AND SPIT OUT 15 SPIT OUT 15 SPIT OUT ML 2 (TWO) ML 2 (TWO) 15 ML 2 TIMES TIMES (TWO) DAILY. DAILY. TIMES DAILY. clonidine clonidine No clonidine [facility] HCl 0.1 mg HCl 0.1 mg HCl 0.1 mg Medical tablet TAKE tablet TAKE tablet 1 TABLET BY 1 TABLET BY TAKE 1 MOUTH MOUTH TABLET BY NEEDED FOR NEEDED FOR MOUTH BLOOD BLOOD NEEDED FOR PRESSURE PRESSURE BLOOD ABOVE ABOVE PRESSURE 170/100 170/100 ABOVE 170/100 cyanocobala cyanocobala No cyanocobal [facility] min (vit min (vit tracey (vit Me dical B-12) 1,000 B-12) 1,000 B-12) mcg/mL mcg/mL 1,000 injection injection mcg/mL solution solution injection INJECT 1ML INJECT 1ML solution EVERY WEEK EVERY WEEK INJECT 1ML BY BY EVERY WEEK SUBCUTANEOU SUBCUTANEOU BY S ROUTE S ROUTE SUBCUTANEO NOT COVD NOT COVD US ROUTE 95$$ 95$$ NOT COVD 95$$ cyclobenzap cyclobenzap No cyclobenza [facility] rine 10 mg rine 10 mg grayson 10 Medical tablet TAKE tablet TAKE mg tablet 1 TABLET BY 1 TABLET BY TAKE 1 MOUTH EVERY MOUTH EVERY TABLET BY DAY DAY MOUTH EVERY DAY D3-2000 50 D3-2000 50 No 1capsul Q1D D3-1999 50 [facility] mcg (2,000 mcg (2,000 e(s) mcg (2,000 Medical unit) unit) unit) capsule capsule capsule Take 1 Take 1 Take 1 capsule capsule capsule every day every day every day by oral by oral by oral route. route. route. Dexilant 60 Dexilant 60 No Dexilant [facility] mg capsule, mg capsule, 60 mg Medical delayed delayed capsule, release release delayed TAKE 1 TAKE 1 release CAPSULE BY CAPSULE BY TAKE 1 MOUTH EVERY MOUTH EVERY CAPSULE BY DAY DAY MOUTH EVERY DAY diclofenac diclofenac No diclofenac [facility] sodium 50 sodium 50 sodium 50 Medical mg mg mg tablet,kris tablet,kris tablet,del yed release yed release ayed TAKE 1 TAKE 1 release TABLET BY TABLET BY TAKE 1 MOUTH EVERY MOUTH EVERY TABLET BY DAY DAY MOUTH EVERY DAY duloxetine duloxetine No duloxetine [facility] 60 mg 60 mg 60 mg Medical capsule,del capsule,del capsule,de ayed ayed layed release release release Take 1 Take 1 Take 1 capsule capsule capsule every day every day every day by oral by oral by oral route in route in route in the morning the morning the for 90 for 90 morning days. days. for 90 days. fenofibrate fenofibrate No fenofibrat [facility] 160 mg 160 mg e 160 mg Medical tablet TAKE tablet TAKE tablet 1 TABLET BY 1 TABLET BY TAKE 1 MOUTH EVERY MOUTH EVERY TABLET BY DAY DAY MOUTH EVERY DAY Flovent HFA Flovent HFA No Flovent [facility] 110 110 HFA 110 Medical mcg/actuati mcg/actuati mcg/actuat on aerosol on aerosol ion inhaler inhaler aerosol INHALE 1 INHALE 1 inhaler PUFF TWICE PUFF TWICE INHALE 1 A DAY BY A DAY BY PUFF TWICE INHALATION INHALATION A DAY BY NEEDED. NEEDED. INHALATION NEEDED. hydrochloro hydrochloro No hydrochlor [facility] thiazide thiazide othiazide Me dical 12.5 mg 12.5 mg 12.5 mg tablet TAKE tablet TAKE tablet 1 TABLET BY 1 TABLET BY TAKE 1 MOUTH EVERY MOUTH EVERY TABLET BY DAY FOR 30 DAY FOR 30 MOUTH DAYS DAYS EVERY DAY FOR 30 DAYS hydrocodone hydrocodone No hydrocodon [facility] 10 10 e 10 Medical mg-acetamin mg-acetamin mg-acetami ophen 325 ophen 325 nophen 325 mg tablet mg tablet mg tablet TAKE 1 TAKE 1 TAKE 1 TABLET BY TABLET BY TABLET BY MOUTH THREE MOUTH THREE MOUTH TIMES A DAY TIMES A DAY THREE NEEDED NEEDED TIMES A FOR PAIN FOR PAIN DAY MAX 3/DAY MAX 3/DAY NEEDED FOR PAIN MAX 3/DAY hydrocodone hydrocodone No hydrocodon [facility] 7.5 7.5 e 7.5 [facility] mg-acetamin mg-acetamin mg-acetami ophen 325 ophen 325 nophen 325 mg tablet mg tablet mg tablet TAKE 1 TAKE 1 TAKE 1 TABLET 3 TABLET 3 TABLET 3 TIMES A DAY TIMES A DAY TIMES A BY ORAL BY ORAL DAY BY ROUTE ROUTE ORAL ROUTE NEEDED FOR NEEDED FOR NEEDED 28 DAYS. 28 DAYS. FOR 28 DAYS. lisinopril lisinopril No lisinopril [facility] 20 mg 20 mg 20 mg [facility] tablet Take tablet Take tablet 1 tablet 1 tablet Take 1 twice a day twice a day tablet by oral by oral twice a route for route for day by 90 days. 90 days. oral route for 90 days. losartan losartan No losartan [facility] via 100 mg 100 mg 100 mg Medical tablet TAKE tablet TAKE tablet 1 TABLET BY 1 TABLET BY TAKE 1 MOUTH EVERY MOUTH EVERY TABLET BY DAY FOR 30 DAY FOR 30 MOUTH DAYS DAYS EVERY DAY FOR 30 DAYS metoprolol metoprolol No metoprolol [facility] tartrate 50 tartrate 50 tartrate Medical mg tablet mg tablet 50 mg Take 1 Take 1 tablet tablet tablet Take 1 twice a day twice a day tablet by oral by oral twice a route for route for day by 90 days. 90 days. oral route for 90 days. phenazopyri phenazopyri No phenazopyr [facility] dine 200 mg dine 200 mg idine 200 Medical tablet Take tablet Take mg tablet 1 tablet 3 1 tablet 3 Take 1 times a day times a day tablet 3 by oral by oral times a route for 2 route for 2 day by days. days. oral route for 2 days. pregabalin pregabalin No pregabalin [facility] 150 mg 150 mg 150 mg Medical capsule capsule capsule TAKE 1 TAKE 1 TAKE 1 CAPSULE BY CAPSULE BY CAPSULE BY MOUTH 3 MOUTH 3 MOUTH 3 TIMES A DAY TIMES A DAY TIMES A NEEDED NEEDED DAY FOR 90 DAYS FOR 90 DAYS NEEDED FOR 90 DAYS trazodone trazodone No trazodone [facility] 50 mg 50 mg 50 mg Medical tablet TAKE tablet TAKE tablet 1 TABLET BY 1 TABLET BY TAKE 1 MOUTH MOUTH TABLET BY EVERYDAY AT EVERYDAY AT MOUTH BEDTIME BEDTIME EVERYDAY AT BEDTIME albuterol albuterol No albuterol [facility] sulfate HFA sulfate HFA sulfate Medical 90 90 HFA 90 mcg/actuati mcg/actuati mcg/actuat on aerosol on aerosol ion inhaler inhaler aerosol Inhale 2 Inhale 2 inhaler puffs every puffs every Inhale 2 6 hours by 6 hours by puffs inhalation inhalation every 6 route as route as hours by needed for needed for inhalation 90 days. 90 days. route as needed for 90 days. atorvastati atorvastati No 1 Q1D atorvastat [facility] n 40 mg n 40 mg in 40 mg Medic al tablet Take tablet Take tablet 1 tablet 1 tablet Take 1 every day every day tablet by oral by oral every day route for route for by oral 90 days. 90 days. route for 90 days. buspirone buspirone No buspirone [facility] 10 mg 10 mg 10 mg Medical tablet TAKE tablet TAKE tablet 1 TABLET 1 TABLET TAKE 1 TWICE A DAY TWICE A DAY TABLET BY ORAL BY ORAL TWICE A ROUTE FOR ROUTE FOR DAY BY 90 DAYS. 90 DAYS. ORAL ROUTE FOR 90 DAYS. chlorhexidi chlorhexidi No chlorhexid [facility] ne ne ine Medical gluconate gluconate gluconate 0.12 % 0.12 % 0.12 % mouthwash mouthwash mouthwash SWISH AND SWISH AND SWISH AND SPIT OUT 15 SPIT OUT 15 SPIT OUT ML 2 (TWO) ML 2 (TWO) 15 ML 2 TIMES TIMES (TWO) DAILY. DAILY. TIMES DAILY. clonidine clonidine No clonidine [facility] HCl 0.1 mg HCl 0.1 mg HCl 0.1 mg Medical tablet TAKE tablet TAKE tablet 1 TABLET BY 1 TABLET BY TAKE 1 MOUTH MOUTH TABLET BY NEEDED FOR NEEDED FOR MOUTH BLOOD BLOOD NEEDED FOR PRESSURE PRESSURE BLOOD ABOVE ABOVE PRESSURE 170/100 170/100 ABOVE 170/100 cyanocobala cyanocobala No cyanocobal [facility] min (vit min (vit tracey (vit Me dical B-12) 1,000 B-12) 1,000 B-12) mcg/mL mcg/mL 1,000 injection injection mcg/mL solution solution injection INJECT 1ML INJECT 1ML solution EVERY WEEK EVERY WEEK INJECT 1ML BY BY EVERY WEEK SUBCUTANEOU SUBCUTANEOU BY S ROUTE S ROUTE SUBCUTANEO NOT COVD NOT COVD US ROUTE 95$$ 95$$ NOT COVD 95$$ cyclobenzap cyclobenzap No cyclobenza [facility] rine 10 mg rine 10 mg grayson 10 Medical tablet TAKE tablet TAKE mg tablet 1 TABLET BY 1 TABLET BY TAKE 1 MOUTH EVERY MOUTH EVERY TABLET BY DAY DAY MOUTH EVERY DAY D3-1999 50 D3-2000 50 No 1capsul Q1D D3-1999 50 [facility] mcg (2,000 mcg (2,000 e(s) mcg (2,000 Medical unit) unit) unit) capsule capsule capsule Take 1 Take 1 Take 1 capsule capsule capsule every day every day every day by oral by oral by oral route. route. route. Dexilant 60 Dexilant 60 No Dexilant [facility] mg capsule, mg capsule, 60 mg Medical delayed delayed capsule, release release delayed TAKE 1 TAKE 1 release CAPSULE BY CAPSULE BY TAKE 1 MOUTH EVERY MOUTH EVERY CAPSULE BY DAY DAY MOUTH EVERY DAY diclofenac diclofenac No diclofenac [facility] sodium 50 sodium 50 sodium 50 Medical mg mg mg tablet,kris tablet,kris tablet,del yed release yed release ayed TAKE 1 TAKE 1 release TABLET BY TABLET BY TAKE 1 MOUTH EVERY MOUTH EVERY TABLET BY DAY DAY MOUTH EVERY DAY duloxetine duloxetine No duloxetine [facility] 60 mg 60 mg 60 mg Medical capsule,del capsule,del capsule,de ayed ayed layed release release release Take 1 Take 1 Take 1 capsule capsule capsule every day every day every day by oral by oral by oral route in route in route in the morning the morning the for 90 for 90 morning days. days. for 90 days. fenofibrate fenofibrate No fenofibrat [facility] 160 mg 160 mg e 160 mg Medical tablet TAKE tablet TAKE tablet 1 TABLET BY 1 TABLET BY TAKE 1 MOUTH EVERY MOUTH EVERY TABLET BY DAY DAY MOUTH EVERY DAY Flovent HFA Flovent HFA No Flovent [facility] 110 110 HFA 110 Medical mcg/actuati mcg/actuati mcg/actuat on aerosol on aerosol ion inhaler inhaler aerosol INHALE 1 INHALE 1 inhaler PUFF TWICE PUFF TWICE INHALE 1 A DAY BY A DAY BY PUFF TWICE INHALATION INHALATION A DAY BY NEEDED. NEEDED. INHALATION NEEDED. hydrochloro hydrochloro No hydrochlor [facility] thiazide thiazide othiazide Me dical 12.5 mg 12.5 mg 12.5 mg tablet TAKE tablet TAKE tablet 1 TABLET BY 1 TABLET BY TAKE 1 MOUTH EVERY MOUTH EVERY TABLET BY DAY DAY MOUTH EVERY DAY hydrocodone hydrocodone No hydrocodon [facility] 7.5 7.5 e 7.5 Medical mg-acetamin mg-acetamin mg-acetami ophen 325 ophen 325 nophen 325 mg tablet mg tablet mg tablet TAKE 1 TAKE 1 TAKE 1 TABLET 3 TABLET 3 TABLET 3 TIMES A DAY TIMES A DAY TIMES A BY ORAL BY ORAL DAY BY ROUTE ROUTE ORAL ROUTE NEEDED FOR NEEDED FOR NEEDED 28 DAYS. 28 DAYS. FOR 28 DAYS. losartan losartan No 1 Q1D losartan [facility] via 100 mg 100 mg 100 mg Medical tablet Take tablet Take tablet 1 tablet 1 tablet Take 1 every day every day tablet by oral by oral every day route for route for by oral 90 days. 90 days. route for 90 days. metoprolol metoprolol No metoprolol [facility] tartrate 50 tartrate 50 tartrate Medical mg tablet mg tablet 50 mg TAKE 1 TAKE 1 tablet TABLET TABLET TAKE 1 TWICE A DAY TWICE A DAY TABLET BY ORAL BY ORAL TWICE A ROUTE FOR ROUTE FOR DAY BY 90 DAYS. 90 DAYS. ORAL ROUTE FOR 90 DAYS. pregabalin pregabalin No pregabalin [facility] 150 mg 150 mg 150 mg Medical capsule capsule capsule TAKE 1 TAKE 1 TAKE 1 CAPSULE BY CAPSULE BY CAPSULE BY MOUTH 3 MOUTH 3 MOUTH 3 TIMES A DAY TIMES A DAY TIMES A NEEDED NEEDED DAY FOR 90 DAYS FOR 90 DAYS NEEDED FOR 90 DAYS trazodone trazodone No trazodone [facility] 50 mg 50 mg 50 mg Medical tablet TAKE tablet TAKE tablet 1 TABLET BY 1 TABLET BY TAKE 1 MOUTH MOUTH TABLET BY EVERYDAY AT EVERYDAY AT MOUTH BEDTIME BEDTIME EVERYDAY AT BEDTIME albuterol albuterol No albuterol [facility] sulfate HFA sulfate HFA sulfate Medical 90 90 HFA 90 mcg/actuati mcg/actuati mcg/actuat on aerosol on aerosol ion inhaler inhaler aerosol INHALE 2 INHALE 2 inhaler PUFFS EVERY PUFFS EVERY INHALE 2 6 HOURS BY 6 HOURS BY PUFFS INHALATION INHALATION EVERY 6 ROUTE ROUTE HOURS BY NEEDED FOR NEEDED FOR INHALATION 90 DAYS. 90 DAYS. ROUTE NEEDED FOR 90 DAYS. atorvastati atorvastati No atorvastat [facility] n 40 mg n 40 mg in 40 mg Medic al tablet TAKE tablet TAKE tablet 1 TABLET BY 1 TABLET BY TAKE 1 MOUTH EVERY MOUTH EVERY TABLET BY DAY DAY MOUTH EVERY DAY Bactrim DS Bactrim DS No 1 Q12H Bactrim DS [facility] 800 mg-160 800 mg-160 800 mg-160 Medical mg tablet mg tablet mg tablet Take 1 Take 1 Take 1 tablet tablet tablet every 12 every 12 every 12 hours by hours by hours by oral route oral route oral route as directed as directed as for 14 for 14 directed days. days. for 14 days. buspirone buspirone No 1 BID buspirone [facility] 10 mg 10 mg 10 mg Medical tablet Take tablet Take tablet 1 tablet 1 tablet Take 1 twice a day twice a day tablet by oral by oral twice a route for route for day by 90 days. 90 days. oral route for 90 days. chlorhexidi chlorhexidi No chlorhexid [facility] ne ne ine Medical gluconate gluconate gluconate 0.12 % 0.12 % 0.12 % mouthwash mouthwash mouthwash SWISH AND SWISH AND SWISH AND SPIT OUT 15 SPIT OUT 15 SPIT OUT ML 2 (TWO) ML 2 (TWO) 15 ML 2 TIMES TIMES (TWO) DAILY. DAILY. TIMES DAILY. clonidine clonidine No clonidine [facility] HCl 0.1 mg HCl 0.1 mg HCl 0.1 mg Medical tablet TAKE tablet TAKE tablet 1 TABLET BY 1 TABLET BY TAKE 1 MOUTH MOUTH TABLET BY NEEDED FOR NEEDED FOR MOUTH BLOOD BLOOD NEEDED FOR PRESSURE PRESSURE BLOOD ABOVE ABOVE PRESSURE 170/100 170/100 ABOVE 170/100 cyanocobala cyanocobala No cyanocobal [facility] min (vit min (vit tracey (vit Me dical B-12) 1,000 B-12) 1,000 B-12) mcg/mL mcg/mL 1,000 injection injection mcg/mL solution solution injection INJECT 1ML INJECT 1ML solution EVERY WEEK EVERY WEEK INJECT 1ML BY BY EVERY WEEK SUBCUTANEOU SUBCUTANEOU BY S ROUTE S ROUTE SUBCUTANEO NOT COVD NOT COVD US ROUTE 95$$ 95$$ NOT COVD 95$$ cyclobenzap cyclobenzap No cyclobenza [facility] rine 10 mg rine 10 mg grayson 10 Medical tablet TAKE tablet TAKE mg tablet 1 TABLET 1 TABLET TAKE 1 EVERY DAY EVERY DAY TABLET BY ORAL BY ORAL EVERY DAY ROUTE FOR ROUTE FOR BY ORAL 23 DAYS. 23 DAYS. ROUTE FOR 23 DAYS. D3-2000 50 D3-2000 50 No 1capsul Q1D D3-2000 50 [facility] mcg (2,000 mcg (2,000 e(s) mcg (2,000 Medical unit) unit) unit) capsule capsule capsule Take 1 Take 1 Take 1 capsule capsule capsule every day every day every day by oral by oral by oral route. route. route. dexlansopra dexlansopra No dexlansopr [facility] zole 60 mg zole 60 mg azole 60 Medical capsule,bip capsule,bip mg hase hase capsule,bi delayed delayed phase release release delayed TAKE 1 TAKE 1 release CAPSULE BY CAPSULE BY TAKE 1 MOUTH EVERY MOUTH EVERY CAPSULE BY DAY DAY MOUTH EVERY DAY diclofenac diclofenac No diclofenac [facility] sodium 50 sodium 50 sodium 50 Medical mg mg mg tablet,kris tablet,kris tablet,del yed release yed release ayed TAKE 1 TAKE 1 release TABLET TABLET TAKE 1 EVERY DAY EVERY DAY TABLET BY ORAL BY ORAL EVERY DAY ROUTE FOR ROUTE FOR BY ORAL 23 DAYS. 23 DAYS. ROUTE FOR 23 DAYS. duloxetine duloxetine No 1capsul Q1D duloxetine [facility] 60 mg 60 mg e(s) 60 mg Medical capsule,del capsule,del capsule,de ayed ayed layed release release release Take 1 Take 1 Take 1 capsule capsule capsule every day every day every day by oral by oral by oral route for route for route for 90 days. 90 days. 90 days. fenofibrate fenofibrate No fenofibrat [facility] 160 mg 160 mg e 160 mg Medical tablet TAKE tablet TAKE tablet 1 TABLET BY 1 TABLET BY TAKE 1 MOUTH EVERY MOUTH EVERY TABLET BY DAY DAY MOUTH EVERY DAY Flovent HFA Flovent HFA No Flovent [facility] 110 110 HFA 110 Medical mcg/actuati mcg/actuati mcg/actuat on aerosol on aerosol ion inhaler inhaler aerosol INHALE 1 INHALE 1 inhaler PUFF TWICE PUFF TWICE INHALE 1 A DAY A DAY PUFF TWICE NEEDED. NEEDED. A DAY NEEDED. fluconazole fluconazole No fluconazol [facility] 150 mg 150 mg e 150 mg Medical tablet tablet tablet hydrochloro hydrochloro No hydrochlor [facility] thiazide thiazide othiazide Me dical 12.5 mg 12.5 mg 12.5 mg tablet TAKE tablet TAKE tablet 1 TABLET BY 1 TABLET BY TAKE 1 MOUTH EVERY MOUTH EVERY TABLET BY DAY DAY MOUTH EVERY DAY hydrocodone hydrocodone No hydrocodon [facility] 7.5 7.5 e 7.5 Medical mg-acetamin mg-acetamin mg-acetami ophen 325 ophen 325 nophen 325 mg tablet mg tablet mg tablet TAKE 1 TAKE 1 TAKE 1 TABLET 3 TABLET 3 TABLET 3 TIMES A DAY TIMES A DAY TIMES A BY ORAL BY ORAL DAY BY ROUTE ROUTE ORAL ROUTE NEEDED FOR NEEDED FOR NEEDED 23 DAYS. 23 DAYS. FOR 23 DAYS. losartan losartan No losartan [facility] via 100 mg 100 mg 100 mg Medical tablet TAKE tablet TAKE tablet 1 TABLET BY 1 TABLET BY TAKE 1 MOUTH EVERY MOUTH EVERY TABLET BY DAY DAY MOUTH EVERY DAY metoprolol metoprolol No 1 BID metoprolol [facility] tartrate 50 tartrate 50 tartrate Medical mg tablet mg tablet 50 mg Take 1 Take 1 tablet tablet tablet Take 1 twice a day twice a day tablet by oral by oral twice a route for route for day by 90 days. 90 days. oral route for 90 days. mupirocin 2 mupirocin 2 No mupirocin [facility] % topical % topical 2 % Medic al ointment ointment topical APPLY A APPLY A ointment SMALL SMALL APPLY A AMOUNT TO AMOUNT TO SMALL THE THE AMOUNT TO AFFECTED AFFECTED THE AREA BY AREA BY AFFECTED TOPICAL TOPICAL AREA BY ROUTE 3 ROUTE 3 TOPICAL TIMES PER TIMES PER ROUTE 3 DAY DAY TIMES PER DAY pregabalin pregabalin No 1capsul TID pregabalin [facility] 150 mg 150 mg e(s) 150 mg Medical capsule capsule capsule Take 1 Take 1 Take 1 capsule 3 capsule 3 capsule 3 times a day times a day times a by oral by oral day by route for route for oral route 90 days. 90 days. for 90 days. trazodone trazodone No 1 Q1D trazodone [facility] 50 mg 50 mg 50 mg Medical tablet Take tablet Take tablet 1 tablet 1 tablet Take 1 every day every day tablet by oral by oral every day route for route for by oral 90 days. 90 days. route for 90 days. albuterol albuterol No albuterol [facility] sulfate HFA sulfate HFA sulfate Medical 90 90 HFA 90 mcg/actuati mcg/actuati mcg/actuat on aerosol on aerosol ion inhaler inhaler aerosol INHALE 2 INHALE 2 inhaler PUFFS EVERY PUFFS EVERY INHALE 2 6 HOURS BY 6 HOURS BY PUFFS INHALATION INHALATION EVERY 6 ROUTE ROUTE HOURS BY NEEDED FOR NEEDED FOR INHALATION 90 DAYS. 90 DAYS. ROUTE NEEDED FOR 90 DAYS. atorvastati atorvastati No atorvastat [facility] n 40 mg n 40 mg in 40 mg Medic al tablet TAKE tablet TAKE tablet 1 TABLET BY 1 TABLET BY TAKE 1 MOUTH EVERY MOUTH EVERY TABLET BY DAY DAY MOUTH EVERY DAY buspirone buspirone No buspirone [facility] 10 mg 10 mg 10 mg Medical tablet TAKE tablet TAKE tablet 1 TABLET 1 TABLET TAKE 1 TWICE A DAY TWICE A DAY TABLET BY ORAL BY ORAL TWICE A ROUTE FOR ROUTE FOR DAY BY 90 DAYS. 90 DAYS. ORAL ROUTE FOR 90 DAYS. chlorhexidi chlorhexidi No chlorhexid [facility] ne ne ine Medical gluconate gluconate gluconate 0.12 % 0.12 % 0.12 % mouthwash mouthwash mouthwash SWISH AND SWISH AND SWISH AND SPIT OUT 15 SPIT OUT 15 SPIT OUT ML 2 (TWO) ML 2 (TWO) 15 ML 2 TIMES TIMES (TWO) DAILY. DAILY. TIMES DAILY. clonidine clonidine No clonidine [facility] HCl 0.1 mg HCl 0.1 mg HCl 0.1 mg Medical tablet TAKE tablet TAKE tablet 1 TABLET BY 1 TABLET BY TAKE 1 MOUTH MOUTH TABLET BY NEEDED FOR NEEDED FOR MOUTH BLOOD BLOOD NEEDED FOR PRESSURE PRESSURE BLOOD ABOVE ABOVE PRESSURE 170/100 170/100 ABOVE 170/100 cyanocobala cyanocobala No cyanocobal [facility] min (vit min (vit tracey (vit Me dical B-12) 1,000 B-12) 1,000 B-12) mcg/mL mcg/mL 1,000 injection injection mcg/mL solution solution injection INJECT 1ML INJECT 1ML solution EVERY WEEK EVERY WEEK INJECT 1ML BY BY EVERY WEEK SUBCUTANEOU SUBCUTANEOU BY S ROUTE S ROUTE SUBCUTANEO NOT COVD NOT COVD US ROUTE 95$$ 95$$ NOT COVD 95$$ cyclobenzap cyclobenzap No cyclobenza [facility] rine 10 mg rine 10 mg grayson 10 Medical tablet TAKE tablet TAKE mg tablet 1 TABLET BY 1 TABLET BY TAKE 1 MOUTH EVERY MOUTH EVERY TABLET BY DAY DAY MOUTH EVERY DAY D3-2000 50 D3-2000 50 No 1capsul Q1D D3-1999 50 [facility] mcg (2,000 mcg (2,000 e(s) mcg (2,000 Medical unit) unit) unit) capsule capsule capsule Take 1 Take 1 Take 1 capsule capsule capsule every day every day every day by oral by oral by oral route. route. route. dexlansopra dexlansopra No dexlansopr [facility] zole 60 mg zole 60 mg azole 60 Medical capsule,bip capsule,bip mg hase hase capsule,bi delayed delayed phase release release delayed TAKE 1 TAKE 1 release CAPSULE BY CAPSULE BY TAKE 1 MOUTH EVERY MOUTH EVERY CAPSULE BY DAY DAY MOUTH EVERY DAY diclofenac diclofenac No diclofenac [facility] sodium 50 sodium 50 sodium 50 Medical mg mg mg tablet,kris tablet,kris tablet,del yed release yed release ayed TAKE 1 TAKE 1 release TABLET BY TABLET BY TAKE 1 MOUTH TWICE MOUTH TWICE TABLET BY A DAY FOR A DAY FOR MOUTH 28 DAYS 28 DAYS TWICE A DAY FOR 28 DAYS duloxetine duloxetine No duloxetine [facility] 60 mg 60 mg 60 mg Medical capsule,del capsule,del capsule,de ayed ayed layed release release release Take 1 Take 1 Take 1 capsule capsule capsule every day every day every day by oral by oral by oral route for route for route for 90 days. 90 days. 90 days. fenofibrate fenofibrate No fenofibrat [facility] 160 mg 160 mg e 160 mg Medical tablet TAKE tablet TAKE tablet 1 TABLET BY 1 TABLET BY TAKE 1 MOUTH EVERY MOUTH EVERY TABLET BY DAY DAY MOUTH EVERY DAY Flovent HFA Flovent HFA No Flovent [facility] 110 110 HFA 110 Medical mcg/actuati mcg/actuati mcg/actuat on aerosol on aerosol ion inhaler inhaler aerosol INHALE 1 INHALE 1 inhaler PUFF TWICE PUFF TWICE INHALE 1 A DAY A DAY PUFF TWICE NEEDED. NEEDED. A DAY NEEDED. fluconazole fluconazole No fluconazol [facility] 150 mg 150 mg e 150 mg Medical tablet tablet tablet hydrochloro hydrochloro No hydrochlor [facility] thiazide thiazide othiazide Me dical 12.5 mg 12.5 mg 12.5 mg tablet TAKE tablet TAKE tablet 1 TABLET BY 1 TABLET BY TAKE 1 MOUTH EVERY MOUTH EVERY TABLET BY DAY DAY MOUTH EVERY DAY hydrocodone hydrocodone No hydrocodon [facility] 7.5 7.5 e 7.5 Medical mg-acetamin mg-acetamin mg-acetami ophen 325 ophen 325 nophen 325 mg tablet mg tablet mg tablet TAKE 1 TAKE 1 TAKE 1 TABLET BY TABLET BY TABLET BY MOUTH THREE MOUTH THREE MOUTH TIMES A DAY TIMES A DAY THREE NEEDED NEEDED TIMES A FOR 28 DAYS FOR 28 DAYS DAY NEEDED FOR 28 DAYS losartan 50 losartan 50 No 1 Q1D losartan [facility] mg tablet mg tablet 50 mg [facility]i harsh Take 1 Take 1 tablet tablet tablet Take 1 every day every day tablet by oral by oral every day route in route in by oral the morning the morning route in for 30 for 30 the days. days. morning for 30 days. metoprolol metoprolol No metoprolol [facility] tartrate 50 tartrate 50 tartrate Medical mg tablet mg tablet 50 mg TAKE 1 TAKE 1 tablet TABLET TABLET TAKE 1 TWICE A DAY TWICE A DAY TABLET BY ORAL BY ORAL TWICE A ROUTE FOR ROUTE FOR DAY BY 90 DAYS. 90 DAYS. ORAL ROUTE FOR 90 DAYS. mupirocin 2 mupirocin 2 No mupirocin [facility] % topical % topical 2 % Medic al ointment ointment topical APPLY TO APPLY TO ointment AFFECTED AFFECTED APPLY TO AREA 3 AREA 3 AFFECTED TIMES A DAY TIMES A DAY AREA 3 TIMES A DAY oxybutynin oxybutynin No 1 BID oxybutynin [facility] chloride 5 chloride 5 chloride 5 Medical mg tablet mg tablet mg tablet Take 1 Take 1 Take 1 tablet tablet tablet twice a day twice a day twice a by oral by oral day by route for route for oral route 30 days. 30 days. for 30 days. pregabalin pregabalin No pregabalin [facility] 150 mg 150 mg 150 mg Medical capsule capsule capsule TAKE 1 TAKE 1 TAKE 1 CAPSULE BY CAPSULE BY CAPSULE BY MOUTH THREE MOUTH THREE MOUTH TIMES A DAY TIMES A DAY THREE FOR 90 DAYS FOR 90 DAYS TIMES A DAY FOR 90 DAYS sulfamethox sulfamethox No sulfametho [facility] azole 800 azole 800 xazole 800 Medical mg-trimetho mg-trimetho mg-trimeth prim 160 mg prim 160 mg oprim 160 tablet TAKE tablet TAKE mg tablet 1 TABLET BY 1 TABLET BY TAKE 1 MOUTH EVERY MOUTH EVERY TABLET BY 12 HOURS 12 HOURS MOUTH FOR 2 WEEKS FOR 2 WEEKS EVERY 12 DIRECTED DIRECTED HOURS FOR 2 WEEKS DIRECTED trazodone trazodone No trazodone [facility] 50 mg 50 mg 50 mg Medical tablet TAKE tablet TAKE tablet 1 TABLET BY 1 TABLET BY TAKE 1 MOUTH MOUTH TABLET BY EVERYDAY AT EVERYDAY AT MOUTH BEDTIME BEDTIME EVERYDAY AT BEDTIME albuterol albuterol No albuterol [facility] sulfate HFA sulfate HFA sulfate Medical 90 90 HFA 90 mcg/actuati mcg/actuati mcg/actuat on aerosol on aerosol ion inhaler inhaler aerosol INHALE 2 INHALE 2 inhaler PUFFS EVERY PUFFS EVERY INHALE 2 6 HOURS BY 6 HOURS BY PUFFS INHALATION INHALATION EVERY 6 ROUTE ROUTE HOURS BY NEEDED FOR NEEDED FOR INHALATION 90 DAYS. 90 DAYS. ROUTE NEEDED FOR 90 DAYS. atorvastati atorvastati No atorvastat [facility] n 40 mg n 40 mg in 40 mg Medic al tablet TAKE tablet TAKE tablet 1 TABLET BY 1 TABLET BY TAKE 1 MOUTH EVERY MOUTH EVERY TABLET BY DAY DAY MOUTH EVERY DAY buspirone buspirone No buspirone [facility] 10 mg 10 mg 10 mg Medical tablet TAKE tablet TAKE tablet 1 TABLET 1 TABLET TAKE 1 TWICE A DAY TWICE A DAY TABLET BY ORAL BY ORAL TWICE A ROUTE ROUTE DAY BY ORAL ROUTE buspirone buspirone No 1 BID buspirone [facility] 15 mg 15 mg 15 mg Medical tablet Take tablet Take tablet 1 tablet 1 tablet Take 1 twice a day twice a day tablet by oral by oral twice a route for route for day by 30 days. 30 days. oral route for 30 days. chlorhexidi chlorhexidi No chlorhexid [facility] ne ne ine Medical gluconate gluconate gluconate 0.12 % 0.12 % 0.12 % mouthwash mouthwash mouthwash SWISH AND SWISH AND SWISH AND SPIT OUT 15 SPIT OUT 15 SPIT OUT ML 2 (TWO) ML 2 (TWO) 15 ML 2 TIMES TIMES (TWO) DAILY. DAILY. TIMES DAILY. clonidine clonidine No clonidine [facility] HCl 0.1 mg HCl 0.1 mg HCl 0.1 mg Medical tablet TAKE tablet TAKE tablet 1 TABLET BY 1 TABLET BY TAKE 1 MOUTH MOUTH TABLET BY NEEDED FOR NEEDED FOR MOUTH BLOOD BLOOD NEEDED FOR PRESSURE PRESSURE BLOOD ABOVE ABOVE PRESSURE 170/100 170/100 ABOVE 170/100 cyanocobala cyanocobala No cyanocobal [facility] min (vit min (vit tracey (vit Me dical B-12) 1,000 B-12) 1,000 B-12) mcg/mL mcg/mL 1,000 injection injection mcg/mL solution solution injection INJECT 1ML INJECT 1ML solution EVERY WEEK EVERY WEEK INJECT 1ML BY BY EVERY WEEK SUBCUTANEOU SUBCUTANEOU BY S ROUTE S ROUTE SUBCUTANEO NOT COVD NOT COVD US ROUTE 95$$ 95$$ NOT COVD 95$$ cyclobenzap cyclobenzap No cyclobenza [facility] rine 10 mg rine 10 mg grayson 10 Medical tablet TAKE tablet TAKE mg tablet 1 TABLET 1 TABLET TAKE 1 EVERY DAY EVERY DAY TABLET BY ORAL BY ORAL EVERY DAY ROUTE FOR ROUTE FOR BY ORAL 29 DAYS. 29 DAYS. ROUTE FOR 29 DAYS. D3-2000 50 D3-2000 50 No 1capsul Q1D D3-2000 50 [facility] mcg (2,000 mcg (2,000 e(s) mcg (2,000 Medical unit) unit) unit) capsule capsule capsule Take 1 Take 1 Take 1 capsule capsule capsule every day every day every day by oral by oral by oral route. route. route. dexlansopra dexlansopra No dexlansopr [facility] zole 60 mg zole 60 mg azole 60 Medical capsule,bip capsule,bip mg hase hase capsule,bi delayed delayed phase release release delayed TAKE 1 TAKE 1 release CAPSULE BY CAPSULE BY TAKE 1 MOUTH EVERY MOUTH EVERY CAPSULE BY DAY DAY MOUTH EVERY DAY diclofenac diclofenac No diclofenac [facility] sodium 50 sodium 50 sodium 50 Medical mg mg mg tablet,kris tablet,kris tablet,del yed release yed release ayed TAKE 1 TAKE 1 release TABLET TABLET TAKE 1 TWICE A DAY TWICE A DAY TABLET BY ORAL BY ORAL TWICE A ROUTE FOR ROUTE FOR DAY BY 29 DAYS. 29 DAYS. ORAL ROUTE FOR 29 DAYS. duloxetine duloxetine No 1capsul Q1D duloxetine [facility] 60 mg 60 mg e(s) 60 mg Medical capsule,del capsule,del capsule,de ayed ayed layed release release release Take 1 Take 1 Take 1 capsule capsule capsule every day every day every day by oral by oral by oral route for route for route for 90 days. 90 days. 90 days. fenofibrate fenofibrate No fenofibrat [facility] 160 mg 160 mg e 160 mg Medical tablet TAKE tablet TAKE tablet 1 TABLET BY 1 TABLET BY TAKE 1 MOUTH EVERY MOUTH EVERY TABLET BY DAY DAY MOUTH EVERY DAY Flovent HFA Flovent HFA No Flovent [facility] 110 110 HFA 110 Medical mcg/actuati mcg/actuati mcg/actuat on aerosol on aerosol ion inhaler USE inhaler USE aerosol 1 PUFF 1 PUFF inhaler TWICE A DAY TWICE A DAY USE 1 PUFF NEEDED NEEDED TWICE A DAY NEEDED fluconazole fluconazole No fluconazol [facility] 150 mg 150 mg e 150 mg Medical tablet tablet tablet hydrochloro hydrochloro No hydrochlor [facility] thiazide thiazide othiazide Me dical 12.5 mg 12.5 mg 12.5 mg tablet TAKE tablet TAKE tablet 1 TABLET BY 1 TABLET BY TAKE 1 MOUTH EVERY MOUTH EVERY TABLET BY DAY DAY MOUTH EVERY DAY hydrocodone hydrocodone No hydrocodon [facility] 7.5 7.5 e 7.5 Medical mg-acetamin mg-acetamin mg-acetami ophen 325 ophen 325 nophen 325 mg tablet mg tablet mg tablet TAKE 1 TAKE 1 TAKE 1 TABLET 3 TABLET 3 TABLET 3 TIMES A DAY TIMES A DAY TIMES A NEEDED NEEDED DAY NEEDED losartan 50 losartan 50 No 1 Q1D losartan [facility] mg tablet mg tablet 50 mg Medi harsh Take 1 Take 1 tablet tablet tablet Take 1 every day every day tablet by oral by oral every day route in route in by oral the morning the morning route in for 30 for 30 the days. days. morning for 30 days. metoprolol metoprolol No metoprolol [facility] tartrate 50 tartrate 50 tartrate Medical mg tablet mg tablet 50 mg TAKE 1 TAKE 1 tablet TABLET TABLET TAKE 1 TWICE A DAY TWICE A DAY TABLET BY ORAL BY ORAL TWICE A ROUTE FOR ROUTE FOR DAY BY 90 DAYS. 90 DAYS. ORAL ROUTE FOR 90 DAYS. mupirocin 2 mupirocin 2 No mupirocin [facility] % topical % topical 2 % Medic al ointment ointment topical APPLY TO APPLY TO ointment AFFECTED AFFECTED APPLY TO AREA 3 AREA 3 AFFECTED TIMES A DAY TIMES A DAY AREA 3 TIMES A DAY oxybutynin oxybutynin No oxybutynin [facility] chloride 5 chloride 5 chloride 5 Medical mg tablet mg tablet mg tablet TAKE 1 TAKE 1 TAKE 1 TABLET BY TABLET BY TABLET BY MOUTH TWICE MOUTH TWICE MOUTH A DAY A DAY TWICE A DAY pregabalin pregabalin No pregabalin [facility] 150 mg 150 mg 150 mg Medical capsule capsule capsule TAKE 1 TAKE 1 TAKE 1 CAPSULE BY CAPSULE BY CAPSULE BY MOUTH THREE MOUTH THREE MOUTH TIMES A DAY TIMES A DAY THREE FOR 90 DAYS FOR 90 DAYS TIMES A DAY FOR 90 DAYS trazodone trazodone No trazodone [facility] 50 mg 50 mg 50 mg Medical tablet TAKE tablet TAKE tablet 1 TABLET BY 1 TABLET BY TAKE 1 MOUTH MOUTH TABLET BY EVERYDAY AT EVERYDAY AT MOUTH BEDTIME BEDTIME EVERYDAY AT BEDTIME albuterol albuterol No albuterol [facility] sulfate HFA sulfate HFA sulfate Medical 90 90 HFA 90 mcg/actuati mcg/actuati mcg/actuat on aerosol on aerosol ion inhaler inhaler aerosol INHALE 2 INHALE 2 inhaler PUFFS EVERY PUFFS EVERY INHALE 2 6 HOURS BY 6 HOURS BY PUFFS INHALATION INHALATION EVERY 6 ROUTE ROUTE HOURS BY NEEDED FOR NEEDED FOR INHALATION 90 DAYS. 90 DAYS. ROUTE NEEDED FOR 90 DAYS. amlodipine amlodipine No 1 Q1D amlodipine [facility] 10 mg 10 mg 10 mg Medical tablet Take tablet Take tablet 1 tablet 1 tablet Take 1 every day every day tablet by oral by oral every day route in route in by oral the morning the morning route in for 90 for 90 the days. days. morning for 90 days. atorvastati atorvastati No atorvastat [facility] n 40 mg n 40 mg in 40 mg Medic al tablet TAKE tablet TAKE tablet 1 TABLET BY 1 TABLET BY TAKE 1 MOUTH EVERY MOUTH EVERY TABLET BY DAY DAY MOUTH EVERY DAY buspirone buspirone No buspirone [facility] 10 mg 10 mg 10 mg Medical tablet TAKE tablet TAKE tablet 1 TABLET 1 TABLET TAKE 1 TWICE A DAY TWICE A DAY TABLET BY ORAL BY ORAL TWICE A ROUTE ROUTE DAY BY ORAL ROUTE buspirone buspirone No buspirone [facility] 15 mg 15 mg 15 mg Medical tablet TAKE tablet TAKE tablet 1 TABLET BY 1 TABLET BY TAKE 1 MOUTH TWICE MOUTH TWICE TABLET BY A DAY A DAY MOUTH TWICE A DAY chlorhexidi chlorhexidi No chlorhexid [facility] ne ne ine Medical gluconate gluconate gluconate 0.12 % 0.12 % 0.12 % mouthwash mouthwash mouthwash SWISH AND SWISH AND SWISH AND SPIT OUT 15 SPIT OUT 15 SPIT OUT ML 2 (TWO) ML 2 (TWO) 15 ML 2 TIMES TIMES (TWO) DAILY. DAILY. TIMES DAILY. clonidine clonidine No clonidine [facility] HCl 0.1 mg HCl 0.1 mg HCl 0.1 mg Medical tablet TAKE tablet TAKE tablet 1 TABLET BY 1 TABLET BY TAKE 1 MOUTH MOUTH TABLET BY NEEDED FOR NEEDED FOR MOUTH BLOOD BLOOD NEEDED FOR PRESSURE PRESSURE BLOOD ABOVE ABOVE PRESSURE 170/100 170/100 ABOVE 170/100 cyanocobala cyanocobala No cyanocobal [facility] min (vit min (vit tracey (vit Me dical B-12) 1,000 B-12) 1,000 B-12) mcg/mL mcg/mL 1,000 injection injection mcg/mL solution solution injection INJECT 1ML INJECT 1ML solution EVERY WEEK EVERY WEEK INJECT 1ML BY BY EVERY WEEK SUBCUTANEOU SUBCUTANEOU BY S ROUTE S ROUTE SUBCUTANEO NOT COVD NOT COVD US ROUTE 95$$ 95$$ NOT COVD 95$$ cyclobenzap cyclobenzap No cyclobenza [facility] rine 10 mg rine 10 mg grayson 10 Medical tablet TAKE tablet TAKE mg tablet 1 TABLET BY 1 TABLET BY TAKE 1 MOUTH EVERY MOUTH EVERY TABLET BY DAY DAY MOUTH EVERY DAY D3-1999 50 D3-1999 50 No 1capsul Q1D D3-1999 50 [facility] mcg (2,000 mcg (2,000 e(s) mcg (2,000 Medical unit) unit) unit) capsule capsule capsule Take 1 Take 1 Take 1 capsule capsule capsule every day every day every day by oral by oral by oral route. route. route. dexlansopra dexlansopra No dexlansopr [facility] zole 60 mg zole 60 mg azole 60 Medical capsule,bip capsule,bip mg hase hase capsule,bi delayed delayed phase release release delayed TAKE 1 TAKE 1 release CAPSULE BY CAPSULE BY TAKE 1 MOUTH EVERY MOUTH EVERY CAPSULE BY DAY DAY MOUTH EVERY DAY diclofenac diclofenac No diclofenac [facility] sodium 50 sodium 50 sodium 50 Medical mg mg mg tablet,kris tablet,kris tablet,del yed release yed release ayed TAKE 1 TAKE 1 release TABLET BY TABLET BY TAKE 1 MOUTH TWICE MOUTH TWICE TABLET BY A DAY FOR A DAY FOR MOUTH 28 DAYS 28 DAYS TWICE A DAY FOR 28 DAYS duloxetine duloxetine No duloxetine [facility] 60 mg 60 mg 60 mg Medical capsule,del capsule,del capsule,de ayed ayed layed release release release TAKE 1 TAKE 1 TAKE 1 CAPSULE BY CAPSULE BY CAPSULE BY MOUTH EVERY MOUTH EVERY MOUTH DAY FOR 90 DAY FOR 90 EVERY DAY DAYS DAYS FOR 90 DAYS fenofibrate fenofibrate No fenofibrat [facility] 160 mg 160 mg e 160 mg Medical tablet TAKE tablet TAKE tablet 1 TABLET BY 1 TABLET BY TAKE 1 MOUTH EVERY MOUTH EVERY TABLET BY DAY DAY MOUTH EVERY DAY Flovent HFA Flovent HFA No Flovent [facility] 110 110 HFA 110 Medical mcg/actuati mcg/actuati mcg/actuat on aerosol on aerosol ion inhaler USE inhaler USE aerosol 1 PUFF 1 PUFF inhaler TWICE A DAY TWICE A DAY USE 1 PUFF NEEDED NEEDED TWICE A DAY NEEDED fluconazole fluconazole No fluconazol [facility] 150 mg 150 mg e 150 mg Medical tablet tablet tablet hydrochloro hydrochloro No hydrochlor [facility] thiazide thiazide othiazide Me dical 12.5 mg 12.5 mg 12.5 mg tablet TAKE tablet TAKE tablet 1 TABLET BY 1 TABLET BY TAKE 1 MOUTH EVERY MOUTH EVERY TABLET BY DAY DAY MOUTH EVERY DAY hydrocodone hydrocodone No hydrocodon [facility] 7.5 7.5 e 7.5 Medical mg-acetamin mg-acetamin mg-acetami ophen 325 ophen 325 nophen 325 mg tablet mg tablet mg tablet TAKE 1 TAKE 1 TAKE 1 TABLET BY TABLET BY TABLET BY MOUTH THREE MOUTH THREE MOUTH TIMES A DAY TIMES A DAY THREE NEEDED NEEDED TIMES A FOR 28 DAYS FOR 28 DAYS DAY NEEDED FOR 28 DAYS losartan 50 losartan 50 No 1 Q1D losartan [facility] mg tablet mg tablet 50 mg [facility]i harsh Take 1 Take 1 tablet tablet tablet Take 1 every day every day tablet by oral by oral every day route in route in by oral the morning the morning route in for 30 for 30 the days. days. morning for 30 days. metoprolol metoprolol No metoprolol [facility] tartrate 50 tartrate 50 tartrate Medical mg tablet mg tablet 50 mg TAKE 1 TAKE 1 tablet TABLET TABLET TAKE 1 TWICE A DAY TWICE A DAY TABLET BY ORAL BY ORAL TWICE A ROUTE FOR ROUTE FOR DAY BY 90 DAYS. 90 DAYS. ORAL ROUTE FOR 90 DAYS. mupirocin 2 mupirocin 2 No mupirocin [facility] % topical % topical 2 % Medic al ointment ointment topical APPLY TO APPLY TO ointment AFFECTED AFFECTED APPLY TO AREA 3 AREA 3 AFFECTED TIMES A DAY TIMES A DAY AREA 3 TIMES A DAY oxybutynin oxybutynin No oxybutynin [facility] chloride 5 chloride 5 chloride 5 Medical mg tablet mg tablet mg tablet TAKE 1 TAKE 1 TAKE 1 TABLET BY TABLET BY TABLET BY MOUTH TWICE MOUTH TWICE MOUTH A DAY A DAY TWICE A DAY pregabalin pregabalin No 1capsul TID pregabalin [facility] 150 mg 150 mg e(s) 150 mg Medical capsule capsule capsule Take 1 Take 1 Take 1 capsule 3 capsule 3 capsule 3 times a day times a day times a by oral by oral day by route for route for oral route 90 days. 90 days. for 90 days. trazodone trazodone No trazodone [facility] 50 mg 50 mg 50 mg Medical tablet TAKE tablet TAKE tablet 1 TABLET BY 1 TABLET BY TAKE 1 MOUTH MOUTH TABLET BY EVERYDAY AT EVERYDAY AT MOUTH BEDTIME BEDTIME EVERYDAY AT BEDTIME albuterol albuterol No albuterol [facility] sulfate HFA sulfate HFA sulfate Medical 90 90 HFA 90 mcg/actuati mcg/actuati mcg/actuat on aerosol on aerosol ion inhaler inhaler aerosol INHALE 2 INHALE 2 inhaler PUFFS EVERY PUFFS EVERY INHALE 2 6 HOURS BY 6 HOURS BY PUFFS INHALATION INHALATION EVERY 6 ROUTE ROUTE HOURS BY NEEDED FOR NEEDED FOR INHALATION 90 DAYS. 90 DAYS. ROUTE NEEDED FOR 90 DAYS. amlodipine amlodipine No 1 Q1D amlodipine [facility] 10 mg 10 mg 10 mg Medical tablet Take tablet Take tablet 1 tablet 1 tablet Take 1 every day every day tablet by oral by oral every day route in route in by oral the morning the morning route in for 90 for 90 the days. days. morning for 90 days. atorvastati atorvastati No atorvastat [facility] n 40 mg n 40 mg in 40 mg Medic al tablet TAKE tablet TAKE tablet 1 TABLET BY 1 TABLET BY TAKE 1 MOUTH EVERY MOUTH EVERY TABLET BY DAY DAY MOUTH EVERY DAY buspirone buspirone No buspirone [facility] 10 mg 10 mg 10 mg Medical tablet TAKE tablet TAKE tablet 1 TABLET 1 TABLET TAKE 1 TWICE A DAY TWICE A DAY TABLET BY ORAL BY ORAL TWICE A ROUTE ROUTE DAY BY ORAL ROUTE buspirone buspirone No buspirone [facility] 15 mg 15 mg 15 mg Medical tablet TAKE tablet TAKE tablet 1 TABLET BY 1 TABLET BY TAKE 1 MOUTH TWICE MOUTH TWICE TABLET BY A DAY A DAY MOUTH TWICE A DAY chlorhexidi chlorhexidi No chlorhexid [facility] ne ne ine Medical gluconate gluconate gluconate 0.12 % 0.12 % 0.12 % mouthwash mouthwash mouthwash SWISH AND SWISH AND SWISH AND SPIT OUT 15 SPIT OUT 15 SPIT OUT ML 2 (TWO) ML 2 (TWO) 15 ML 2 TIMES TIMES (TWO) DAILY. DAILY. TIMES DAILY. clonidine clonidine No clonidine [facility] HCl 0.1 mg HCl 0.1 mg HCl 0.1 mg Medical tablet TAKE tablet TAKE tablet 1 TABLET BY 1 TABLET BY TAKE 1 MOUTH MOUTH TABLET BY NEEDED FOR NEEDED FOR MOUTH BLOOD BLOOD NEEDED FOR PRESSURE PRESSURE BLOOD ABOVE ABOVE PRESSURE 170/100 170/100 ABOVE 170/100 cyanocobala cyanocobala No cyanocobal [facility] min (vit min (vit tracey (vit Me dical B-12) 1,000 B-12) 1,000 B-12) mcg/mL mcg/mL 1,000 injection injection mcg/mL solution solution injection INJECT 1ML INJECT 1ML solution EVERY WEEK EVERY WEEK INJECT 1ML BY BY EVERY WEEK SUBCUTANEOU SUBCUTANEOU BY S ROUTE S ROUTE SUBCUTANEO NOT COVD NOT COVD US ROUTE 95$$ 95$$ NOT COVD 95$$ cyclobenzap cyclobenzap No cyclobenza [facility] rine 10 mg rine 10 mg grayson 10 Medical tablet TAKE tablet TAKE mg tablet 1 TABLET BY 1 TABLET BY TAKE 1 MOUTH EVERY MOUTH EVERY TABLET BY DAY DAY MOUTH EVERY DAY D3-2000 50 D3-2000 50 No 1capsul Q1D D3-2000 50 [facility] mcg (2,000 mcg (2,000 e(s) mcg (2,000 Medical unit) unit) unit) capsule capsule capsule Take 1 Take 1 Take 1 capsule capsule capsule every day every day every day by oral by oral by oral route. route. route. dexlansopra dexlansopra No dexlansopr [facility] zole 60 mg zole 60 mg azole 60 Medical capsule,bip capsule,bip mg hase hase capsule,bi delayed delayed phase release release delayed TAKE 1 TAKE 1 release CAPSULE BY CAPSULE BY TAKE 1 MOUTH EVERY MOUTH EVERY CAPSULE BY DAY DAY MOUTH EVERY DAY diclofenac diclofenac No diclofenac [facility] sodium 50 sodium 50 sodium 50 Medical mg mg mg tablet,kris tablet,kris tablet,del yed release yed release ayed TAKE 1 TAKE 1 release TABLET BY TABLET BY TAKE 1 MOUTH TWICE MOUTH TWICE TABLET BY A DAY FOR A DAY FOR MOUTH 28 DAYS 28 DAYS TWICE A DAY FOR 28 DAYS duloxetine duloxetine No duloxetine [facility] 60 mg 60 mg 60 mg Medical capsule,del capsule,del capsule,de ayed ayed layed release release release TAKE 1 TAKE 1 TAKE 1 CAPSULE BY CAPSULE BY CAPSULE BY MOUTH EVERY MOUTH EVERY MOUTH DAY FOR 90 DAY FOR 90 EVERY DAY DAYS DAYS FOR 90 DAYS fenofibrate fenofibrate No fenofibrat [facility] 160 mg 160 mg e 160 mg Medical tablet TAKE tablet TAKE tablet 1 TABLET BY 1 TABLET BY TAKE 1 MOUTH EVERY MOUTH EVERY TABLET BY DAY DAY MOUTH EVERY DAY Flovent HFA Flovent HFA No Flovent [facility] 110 110 HFA 110 Medical mcg/actuati mcg/actuati mcg/actuat on aerosol on aerosol ion inhaler USE inhaler USE aerosol 1 PUFF 1 PUFF inhaler TWICE A DAY TWICE A DAY USE 1 PUFF NEEDED NEEDED TWICE A DAY NEEDED fluconazole fluconazole No fluconazol [facility] 150 mg 150 mg e 150 mg Medical tablet tablet tablet hydrochloro hydrochloro No hydrochlor [facility] thiazide thiazide othiazide Me dical 12.5 mg 12.5 mg 12.5 mg tablet TAKE tablet TAKE tablet 1 TABLET BY 1 TABLET BY TAKE 1 MOUTH EVERY MOUTH EVERY TABLET BY DAY DAY MOUTH EVERY DAY hydrocodone hydrocodone No hydrocodon [facility] 7.5 7.5 e 7.5 Medical mg-acetamin mg-acetamin mg-acetami ophen 325 ophen 325 nophen 325 mg tablet mg tablet mg tablet TAKE 1 TAKE 1 TAKE 1 TABLET BY TABLET BY TABLET BY MOUTH THREE MOUTH THREE MOUTH TIMES A DAY TIMES A DAY THREE NEEDED NEEDED TIMES A FOR 28 DAYS FOR 28 DAYS DAY NEEDED FOR 28 DAYS losartan 50 losartan 50 No 1 Q1D losartan [facility] mg tablet mg tablet 50 mg [facility]i harsh Take 1 Take 1 tablet tablet tablet Take 1 every day every day tablet by oral by oral every day route in route in by oral the morning the morning route in for 30 for 30 the days. days. morning for 30 days. metoprolol metoprolol No metoprolol [facility] tartrate 50 tartrate 50 tartrate Medical mg tablet mg tablet 50 mg TAKE 1 TAKE 1 tablet TABLET TABLET TAKE 1 TWICE A DAY TWICE A DAY TABLET BY ORAL BY ORAL TWICE A ROUTE FOR ROUTE FOR DAY BY 90 DAYS. 90 DAYS. ORAL ROUTE FOR 90 DAYS. mupirocin 2 mupirocin 2 No mupirocin [facility] % topical % topical 2 % Medic al ointment ointment topical APPLY TO APPLY TO ointment AFFECTED AFFECTED APPLY TO AREA 3 AREA 3 AFFECTED TIMES A DAY TIMES A DAY AREA 3 TIMES A DAY oxybutynin oxybutynin No oxybutynin [facility] chloride 5 chloride 5 chloride 5 Medical mg tablet mg tablet mg tablet TAKE 1 TAKE 1 TAKE 1 TABLET BY TABLET BY TABLET BY MOUTH TWICE MOUTH TWICE MOUTH A DAY A DAY TWICE A DAY pregabalin pregabalin No 1capsul TID pregabalin [facility] 150 mg 150 mg e(s) 150 mg Medical capsule capsule capsule Take 1 Take 1 Take 1 capsule 3 capsule 3 capsule 3 times a day times a day times a by oral by oral day by route for route for oral route 90 days. 90 days. for 90 days. trazodone trazodone No trazodone [facility] 50 mg 50 mg 50 mg Medical tablet TAKE tablet TAKE tablet 1 TABLET BY 1 TABLET BY TAKE 1 MOUTH MOUTH TABLET BY EVERYDAY AT EVERYDAY AT MOUTH BEDTIME BEDTIME EVERYDAY AT BEDTIME albuterol albuterol No albuterol [facility] sulfate HFA sulfate HFA sulfate Medical 90 90 HFA 90 mcg/actuati mcg/actuati mcg/actuat on aerosol on aerosol ion inhaler inhaler aerosol INHALE 2 INHALE 2 inhaler PUFFS EVERY PUFFS EVERY INHALE 2 6 HOURS BY 6 HOURS BY PUFFS INHALATION INHALATION EVERY 6 ROUTE ROUTE HOURS BY NEEDED FOR NEEDED FOR INHALATION 90 DAYS. 90 DAYS. ROUTE NEEDED FOR 90 DAYS. amlodipine amlodipine No amlodipine [facility] 10 mg 10 mg 10 mg Medical tablet TAKE tablet TAKE tablet 1 TABLET BY 1 TABLET BY TAKE 1 MOUTH EVERY MOUTH EVERY TABLET BY DAY IN THE DAY IN THE MOUTH MORNING MORNING EVERY DAY IN THE MORNING atorvastati atorvastati No 1 Q1D atorvastat [facility] n 40 mg n 40 mg in 40 mg Medic al tablet Take tablet Take tablet 1 tablet 1 tablet Take 1 every day every day tablet by oral by oral every day route for route for by oral 90 days. 90 days. route for 90 days. buspirone buspirone No buspirone [facility] 15 mg 15 mg 15 mg Medical tablet TAKE tablet TAKE tablet 1 TABLET BY 1 TABLET BY TAKE 1 MOUTH TWICE MOUTH TWICE TABLET BY A DAY A DAY MOUTH TWICE A DAY chlorhexidi chlorhexidi No chlorhexid [facility] ne ne ine Medical gluconate gluconate gluconate 0.12 % 0.12 % 0.12 % mouthwash mouthwash mouthwash SWISH AND SWISH AND SWISH AND SPIT OUT 15 SPIT OUT 15 SPIT OUT ML 2 (TWO) ML 2 (TWO) 15 ML 2 TIMES TIMES (TWO) DAILY. DAILY. TIMES DAILY. clonidine clonidine No clonidine [facility] HCl 0.1 mg HCl 0.1 mg HCl 0.1 mg Medical tablet TAKE tablet TAKE tablet 1 TABLET BY 1 TABLET BY TAKE 1 MOUTH MOUTH TABLET BY NEEDED FOR NEEDED FOR MOUTH BLOOD BLOOD NEEDED FOR PRESSURE PRESSURE BLOOD ABOVE ABOVE PRESSURE 170/100 170/100 ABOVE 170/100 cyanocobala cyanocobala No cyanocobal [facility] min (vit min (vit tracey (vit Me dical B-12) 1,000 B-12) 1,000 B-12) mcg/mL mcg/mL 1,000 injection injection mcg/mL solution solution injection INJECT 1ML INJECT 1ML solution EVERY WEEK EVERY WEEK INJECT 1ML BY BY EVERY WEEK SUBCUTANEOU SUBCUTANEOU BY S ROUTE S ROUTE SUBCUTANEO NOT COVD NOT COVD US ROUTE 95$$ 95$$ NOT COVD 95$$ cyclobenzap cyclobenzap No cyclobenza [facility] rine 10 mg rine 10 mg grayson 10 Medical tablet TAKE tablet TAKE mg tablet 1 TABLET BY 1 TABLET BY TAKE 1 MOUTH EVERY MOUTH EVERY TABLET BY DAY DAY MOUTH EVERY DAY D3-2000 50 D3-2000 50 No 1capsul Q1D D3-2000 50 [facility] mcg (2,000 mcg (2,000 e(s) mcg (2,000 Medical unit) unit) unit) capsule capsule capsule Take 1 Take 1 Take 1 capsule capsule capsule every day every day every day by oral by oral by oral route. route. route. dexlansopra dexlansopra No dexlansopr [facility] zole 60 mg zole 60 mg azole 60 Medical capsule,bip capsule,bip mg hase hase capsule,bi delayed delayed phase release release delayed TAKE 1 TAKE 1 release CAPSULE BY CAPSULE BY TAKE 1 MOUTH EVERY MOUTH EVERY CAPSULE BY DAY DAY MOUTH EVERY DAY diclofenac diclofenac No diclofenac [facility] sodium 50 sodium 50 sodium 50 Medical mg mg mg tablet,kris tablet,kris tablet,del yed release yed release ayed TAKE 1 TAKE 1 release TABLET BY TABLET BY TAKE 1 MOUTH TWICE MOUTH TWICE TABLET BY A DAY FOR A DAY FOR MOUTH 28 DAYS 28 DAYS TWICE A DAY FOR 28 DAYS duloxetine duloxetine No duloxetine [facility] 60 mg 60 mg 60 mg Medical capsule,del capsule,del capsule,de ayed ayed layed release release release TAKE 1 TAKE 1 TAKE 1 CAPSULE BY CAPSULE BY CAPSULE BY MOUTH EVERY MOUTH EVERY MOUTH DAY FOR 90 DAY FOR 90 EVERY DAY DAYS DAYS FOR 90 DAYS fenofibrate fenofibrate No fenofibrat [facility] 160 mg 160 mg e 160 mg Medical tablet TAKE tablet TAKE tablet 1 TABLET BY 1 TABLET BY TAKE 1 MOUTH EVERY MOUTH EVERY TABLET BY DAY DAY MOUTH EVERY DAY Flomax 0.4 Flomax 0.4 No 1capsul Q1D Flomax 0.4 [facility] mg capsule mg capsule e(s) mg capsule Medical Take 1 Take 1 Take 1 capsule capsule capsule every day every day every day by oral by oral by oral route for route for route for 30 days. 30 days. 30 days. Flovent HFA Flovent HFA No Flovent [facility] 110 110 HFA 110 Medical mcg/actuati mcg/actuati mcg/actuat on aerosol on aerosol ion inhaler USE inhaler USE aerosol 1 PUFF 1 PUFF inhaler TWICE A DAY TWICE A DAY USE 1 PUFF NEEDED NEEDED TWICE A DAY NEEDED fluconazole fluconazole No 1 fluconazol [facility] 150 mg 150 mg e 150 mg Medical tablet Take tablet Take tablet 1 tablet 1 tablet Take 1 every 72 every 72 tablet hours by hours by every 72 oral route oral route hours by for 30 for 30 oral route days. days. for 30 days. hydrochloro hydrochloro No hydrochlor [facility] thiazide thiazide othiazide Me dical 12.5 mg 12.5 mg 12.5 mg tablet TAKE tablet TAKE tablet 1 TABLET BY 1 TABLET BY TAKE 1 MOUTH EVERY MOUTH EVERY TABLET BY DAY DAY MOUTH EVERY DAY hydrocodone hydrocodone No hydrocodon [facility] 7.5 7.5 e 7.5 Medical mg-acetamin mg-acetamin mg-acetami ophen 325 ophen 325 nophen 325 mg tablet mg tablet mg tablet TAKE 1 TAKE 1 TAKE 1 TABLET BY TABLET BY TABLET BY MOUTH THREE MOUTH THREE MOUTH TIMES A DAY TIMES A DAY THREE NEEDED NEEDED TIMES A FOR 28 DAYS FOR 28 DAYS DAY NEEDED FOR 28 DAYS losartan losartan No 1 Q1D losartan [facility] via 100 mg 100 mg 100 mg Medical tablet Take tablet Take tablet 1 tablet 1 tablet Take 1 every day every day tablet by oral by oral every day route for route for by oral 90 days. 90 days. route for 90 days. metoprolol metoprolol No 1 BID metoprolol [facility] tartrate 50 tartrate 50 tartrate Medical mg tablet mg tablet 50 mg Take 1 Take 1 tablet tablet tablet Take 1 twice a day twice a day tablet by oral by oral twice a route for route for day by 90 days. 90 days. oral route for 90 days. mupirocin 2 mupirocin 2 No mupirocin [facility] % topical % topical 2 % Medic al ointment ointment topical APPLY TO APPLY TO ointment AFFECTED AFFECTED APPLY TO AREA 3 AREA 3 AFFECTED TIMES A DAY TIMES A DAY AREA 3 TIMES A DAY oxybutynin oxybutynin No oxybutynin [facility] chloride 5 chloride 5 chloride 5 Medical mg tablet mg tablet mg tablet TAKE 1 TAKE 1 TAKE 1 TABLET BY TABLET BY TABLET BY MOUTH TWICE MOUTH TWICE MOUTH A DAY A DAY TWICE A DAY pregabalin pregabalin No 1capsul TID pregabalin [facility] 150 mg 150 mg e(s) 150 mg Medical capsule capsule capsule Take 1 Take 1 Take 1 capsule 3 capsule 3 capsule 3 times a day times a day times a by oral by oral day by route for route for oral route 90 days. 90 days. for 90 days. trazodone trazodone No 1 Q1D trazodone [facility] 50 mg 50 mg 50 mg Medical tablet Take tablet Take tablet 1 tablet 1 tablet Take 1 every day every day tablet by oral by oral every day route as route as by oral needed for needed for route as 90 days. 90 days. needed for 90 days. albuterol albuterol No albuterol [facility] sulfate HFA sulfate HFA sulfate Medical 90 90 HFA 90 mcg/actuati mcg/actuati mcg/actuat on aerosol on aerosol ion inhaler inhaler aerosol INHALE 2 INHALE 2 inhaler PUFFS EVERY PUFFS EVERY INHALE 2 6 HOURS BY 6 HOURS BY PUFFS INHALATION INHALATION EVERY 6 ROUTE ROUTE HOURS BY NEEDED FOR NEEDED FOR INHALATION 90 DAYS. 90 DAYS. ROUTE NEEDED FOR 90 DAYS. amlodipine amlodipine No amlodipine [facility] 10 mg 10 mg 10 mg Medical tablet TAKE tablet TAKE tablet 1 TABLET BY 1 TABLET BY TAKE 1 MOUTH EVERY MOUTH EVERY TABLET BY DAY IN THE DAY IN THE MOUTH MORNING MORNING EVERY DAY IN THE MORNING atorvastati atorvastati No 1 Q1D atorvastat [facility] n 40 mg n 40 mg in 40 mg Medic al tablet Take tablet Take tablet 1 tablet 1 tablet Take 1 every day every day tablet by oral by oral every day route for route for by oral 90 days. 90 days. route for 90 days. buspirone buspirone No buspirone [facility] 15 mg 15 mg 15 mg Medical tablet TAKE tablet TAKE tablet 1 TABLET BY 1 TABLET BY TAKE 1 MOUTH TWICE MOUTH TWICE TABLET BY A DAY A DAY MOUTH TWICE A DAY chlorhexidi chlorhexidi No chlorhexid [facility] ne ne ine Medical gluconate gluconate gluconate 0.12 % 0.12 % 0.12 % mouthwash mouthwash mouthwash SWISH AND SWISH AND SWISH AND SPIT OUT 15 SPIT OUT 15 SPIT OUT ML 2 (TWO) ML 2 (TWO) 15 ML 2 TIMES TIMES (TWO) DAILY. DAILY. TIMES DAILY. clonidine clonidine No clonidine [facility] HCl 0.1 mg HCl 0.1 mg HCl 0.1 mg Medical tablet TAKE tablet TAKE tablet 1 TABLET BY 1 TABLET BY TAKE 1 MOUTH MOUTH TABLET BY NEEDED FOR NEEDED FOR MOUTH BLOOD BLOOD NEEDED FOR PRESSURE PRESSURE BLOOD ABOVE ABOVE PRESSURE 170/100 170/100 ABOVE 170/100 cyanocobala cyanocobala No cyanocobal [facility] min (vit min (vit tracey (vit Me dical B-12) 1,000 B-12) 1,000 B-12) mcg/mL mcg/mL 1,000 injection injection mcg/mL solution solution injection INJECT 1ML INJECT 1ML solution EVERY WEEK EVERY WEEK INJECT 1ML BY BY EVERY WEEK SUBCUTANEOU SUBCUTANEOU BY S ROUTE S ROUTE SUBCUTANEO NOT COVD NOT COVD US ROUTE 95$$ 95$$ NOT COVD 95$$ cyclobenzap cyclobenzap No cyclobenza [facility] rine 10 mg rine 10 mg grayson 10 Medical tablet TAKE tablet TAKE mg tablet 1 TABLET BY 1 TABLET BY TAKE 1 MOUTH EVERY MOUTH EVERY TABLET BY DAY DAY MOUTH EVERY DAY D3-2000 50 D3-2000 50 No 1capsul Q1D D3-2000 50 [facility] mcg (2,000 mcg (2,000 e(s) mcg (2,000 Medical unit) unit) unit) capsule capsule capsule Take 1 Take 1 Take 1 capsule capsule capsule every day every day every day by oral by oral by oral route. route. route. dexlansopra dexlansopra No dexlansopr [facility] zole 60 mg zole 60 mg azole 60 Medical capsule,bip capsule,bip mg hase hase capsule,bi delayed delayed phase release release delayed TAKE 1 TAKE 1 release CAPSULE BY CAPSULE BY TAKE 1 MOUTH EVERY MOUTH EVERY CAPSULE BY DAY DAY MOUTH EVERY DAY diclofenac diclofenac No diclofenac [facility] sodium 50 sodium 50 sodium 50 Medical mg mg mg tablet,kris tablet,kris tablet,del yed release yed release ayed TAKE 1 TAKE 1 release TABLET BY TABLET BY TAKE 1 MOUTH TWICE MOUTH TWICE TABLET BY A DAY FOR A DAY FOR MOUTH 28 DAYS 28 DAYS TWICE A DAY FOR 28 DAYS duloxetine duloxetine No duloxetine [facility] 60 mg 60 mg 60 mg Medical capsule,del capsule,del capsule,de ayed ayed layed release release release TAKE 1 TAKE 1 TAKE 1 CAPSULE BY CAPSULE BY CAPSULE BY MOUTH EVERY MOUTH EVERY MOUTH DAY FOR 90 DAY FOR 90 EVERY DAY DAYS DAYS FOR 90 DAYS fenofibrate fenofibrate No fenofibrat [facility] 160 mg 160 mg e 160 mg Medical tablet TAKE tablet TAKE tablet 1 TABLET BY 1 TABLET BY TAKE 1 MOUTH EVERY MOUTH EVERY TABLET BY DAY DAY MOUTH EVERY DAY Flomax 0.4 Flomax 0.4 No 1capsul Q1D Flomax 0.4 [facility] mg capsule mg capsule e(s) mg capsule Medical Take 1 Take 1 Take 1 capsule capsule capsule every day every day every day by oral by oral by oral route for route for route for 30 days. 30 days. 30 days. Flovent HFA Flovent HFA No Flovent [facility] 110 110 HFA 110 Medical mcg/actuati mcg/actuati mcg/actuat on aerosol on aerosol ion inhaler USE inhaler USE aerosol 1 PUFF 1 PUFF inhaler TWICE A DAY TWICE A DAY USE 1 PUFF NEEDED NEEDED TWICE A DAY NEEDED fluconazole fluconazole No 1 fluconazol [facility] 150 mg 150 mg e 150 mg Medical tablet Take tablet Take tablet 1 tablet 1 tablet Take 1 every 72 every 72 tablet hours by hours by every 72 oral route oral route hours by for 30 for 30 oral route days. days. for 30 days. hydrochloro hydrochloro No hydrochlor [facility] thiazide thiazide othiazide Me dical 12.5 mg 12.5 mg 12.5 mg tablet TAKE tablet TAKE tablet 1 TABLET BY 1 TABLET BY TAKE 1 MOUTH EVERY MOUTH EVERY TABLET BY DAY DAY MOUTH EVERY DAY hydrocodone hydrocodone No hydrocodon [facility] 7.5 7.5 e 7.5 Medical mg-acetamin mg-acetamin mg-acetami ophen 325 ophen 325 nophen 325 mg tablet mg tablet mg tablet TAKE 1 TAKE 1 TAKE 1 TABLET BY TABLET BY TABLET BY MOUTH THREE MOUTH THREE MOUTH TIMES A DAY TIMES A DAY THREE NEEDED NEEDED TIMES A FOR 28 DAYS FOR 28 DAYS DAY NEEDED FOR 28 DAYS losartan losartan No 1 Q1D losartan [facility] via 100 mg 100 mg 100 mg Medical tablet Take tablet Take tablet 1 tablet 1 tablet Take 1 every day every day tablet by oral by oral every day route for route for by oral 90 days. 90 days. route for 90 days. metoprolol metoprolol No 1 BID metoprolol [facility] tartrate 50 tartrate 50 tartrate Medical mg tablet mg tablet 50 mg Take 1 Take 1 tablet tablet tablet Take 1 twice a day twice a day tablet by oral by oral twice a route for route for day by 90 days. 90 days. oral route for 90 days. mupirocin 2 mupirocin 2 No mupirocin [facility] % topical % topical 2 % Medic al ointment ointment topical APPLY TO APPLY TO ointment AFFECTED AFFECTED APPLY TO AREA 3 AREA 3 AFFECTED TIMES A DAY TIMES A DAY AREA 3 TIMES A DAY oxybutynin oxybutynin No oxybutynin [facility] chloride 5 chloride 5 chloride 5 Medical mg tablet mg tablet mg tablet TAKE 1 TAKE 1 TAKE 1 TABLET BY TABLET BY TABLET BY MOUTH TWICE MOUTH TWICE MOUTH A DAY A DAY TWICE A DAY pregabalin pregabalin No 1capsul TID pregabalin [facility] 150 mg 150 mg e(s) 150 mg Medical capsule capsule capsule Take 1 Take 1 Take 1 capsule 3 capsule 3 capsule 3 times a day times a day times a by oral by oral day by route for route for oral route 90 days. 90 days. for 90 days. trazodone trazodone No 1 Q1D trazodone [facility] 50 mg 50 mg 50 mg [facility] tablet Take tablet Take tablet 1 tablet 1 tablet Take 1 every day every day tablet by oral by oral every day route as route as by oral needed for needed for route as 90 days. 90 days. needed for 90 days. albuterol albuterol No albuterol [facility] sulfate HFA sulfate HFA sulfate Medical 90 90 HFA 90 mcg/actuati mcg/actuati mcg/actuat on aerosol on aerosol ion inhaler inhaler aerosol TAKE 2 TAKE 2 inhaler PUFFS BY PUFFS BY TAKE 2 MOUTH EVERY MOUTH EVERY PUFFS BY 4 TO 6 4 TO 6 MOUTH HOURS HOURS EVERY 4 TO 6 HOURS atorvastati atorvastati No atorvastat [facility] n 40 mg n 40 mg in 40 mg Medic al tablet Take tablet Take tablet 1 tablet 1 tablet Take 1 every day every day tablet by oral by oral every day route for route for by oral 90 days. 90 days. route for 90 days. azelastine azelastine No azelastine [facility] 137 mcg 137 mcg 137 mcg [facility] l (0.1 %) (0.1 %) (0.1 %) nasal spray nasal spray nasal aerosol USE aerosol USE spray 1 SPRAY IN 1 SPRAY IN aerosol EACH EACH USE 1 NOSTRIL 2 NOSTRIL 2 SPRAY IN (TWO) TIMES (TWO) TIMES EACH DAILY. USE DAILY. USE NOSTRIL 2 IN EACH IN EACH (TWO) NOSTRIL NOSTRIL TIMES DIRECTED DIRECTED DAILY. USE IN EACH NOSTRIL DIRECTED buspirone buspirone No buspirone [facility] 10 mg 10 mg 10 mg Medical tablet TAKE tablet TAKE tablet 1 TABLET BY 1 TABLET BY TAKE 1 MOUTH TWICE MOUTH TWICE TABLET BY A DAY A DAY MOUTH TWICE A DAY chlorhexidi chlorhexidi No chlorhexid [facility] ne ne ine Medical gluconate gluconate gluconate 0.12 % 0.12 % 0.12 % mouthwash mouthwash mouthwash SWISH AND SWISH AND SWISH AND SPIT OUT 15 SPIT OUT 15 SPIT OUT ML 2 (TWO) ML 2 (TWO) 15 ML 2 TIMES TIMES (TWO) DAILY. DAILY. TIMES DAILY. clindamycin clindamycin No clindamyci [facility] HCl 150 mg HCl 150 mg n HCl 150 Medical capsule capsule mg capsule TAKE 1 TAKE 1 TAKE 1 CAPSULE CAPSULE CAPSULE WITH WITH WITH BREAKFAST, BREAKFAST, BREAKFAST, 1 CAPSULE 1 CAPSULE 1 CAPSULE WITH LUNCH WITH LUNCH WITH LUNCH AND 2 AND 2 AND 2 CAPSULES IN CAPSULES IN CAPSULES THE EVENING THE EVENING IN THE FOR 14 DAYS FOR 14 DAYS EVENING FOR 14 DAYS cyanocobala cyanocobala No cyanocobal [facility] min (vit min (vit tracey (vit Me dical B-12) 1,000 B-12) 1,000 B-12) mcg/mL mcg/mL 1,000 injection injection mcg/mL solution solution injection INJECT 1 ML INJECT 1 ML solution EVERY MONTH EVERY MONTH INJECT 1 BY BY ML EVERY INTRAMUSCUL INTRAMUSCUL MONTH BY AR ROUTE AR ROUTE INTRAMUSCU LAR ROUTE D3-1999 50 D3-1999 50 No 1capsul Q1D D3-1999 50 [facility] mcg (2,000 mcg (2,000 e(s) mcg (2,000 Medical unit) unit) unit) capsule capsule capsule Take 1 Take 1 Take 1 capsule capsule capsule every day every day every day by oral by oral by oral route. route. route. Dexilant 60 Dexilant 60 No Dexilant [facility] mg capsule, mg capsule, 60 mg Medical delayed delayed capsule, release release delayed TAKE 1 TAKE 1 release CAPSULE BY CAPSULE BY TAKE 1 MOUTH EVERY MOUTH EVERY CAPSULE BY DAY DAY MOUTH EVERY DAY duloxetine duloxetine No duloxetine [facility] 60 mg 60 mg 60 mg Medical capsule,del capsule,del capsule,de ayed ayed layed release release release TAKE 1 TAKE 1 TAKE 1 CAPSULE BY CAPSULE BY CAPSULE BY MOUTH EVERY MOUTH EVERY MOUTH DAY IN THE DAY IN THE EVERY DAY MORNING MORNING IN THE MORNING fenofibrate fenofibrate No fenofibrat [facility] 160 mg 160 mg e 160 mg Medical tablet Take tablet Take tablet 1 tablet 1 tablet Take 1 every day every day tablet by oral by oral every day route for route for by oral 90 days. 90 days. route for 90 days. Flovent HFA Flovent HFA No 1puff(s BID Flovent [facility] 110 110 ) HFA 110 Medical mcg/actuati mcg/actuati mcg/actuat on aerosol on aerosol ion inhaler inhaler aerosol Inhale 1 Inhale 1 inhaler puff twice puff twice Inhale 1 a day by a day by puff twice inhalation inhalation a day by route as route as inhalation needed for needed for route as 30 days. 30 days. needed for 30 days. fluconazole fluconazole No fluconazol [facility] 100 mg 100 mg e 100 mg Medical tablet tablet tablet PLEASE SEE PLEASE SEE PLEASE SEE ATTACHED ATTACHED ATTACHED FOR FOR FOR DETAILED DETAILED DETAILED DIRECTIONS DIRECTIONS DIRECTIONS fluconazole fluconazole No fluconazol [facility] 150 mg 150 mg e 150 mg Medical tablet TAKE tablet TAKE tablet 1 TABLET BY 1 TABLET BY TAKE 1 MOUTH EVERY MOUTH EVERY TABLET BY DAY FOR 10 DAY FOR 10 MOUTH DAYS DAYS EVERY DAY FOR 10 DAYS hydrocodone hydrocodone No hydrocodon [facility] 10 10 e 10 Medical mg-acetamin mg-acetamin mg-acetami ophen 325 ophen 325 nophen 325 mg tablet mg tablet mg tablet TAKE 1 TAKE 1 TAKE 1 TABLET BY TABLET BY TABLET BY MOUTH THREE MOUTH THREE MOUTH TIMES A DAY TIMES A DAY THREE NEEDED NEEDED TIMES A FOR PAIN FOR PAIN DAY MAX 3/DAY MAX 3/DAY NEEDED FOR PAIN MAX 3/DAY levofloxaci levofloxaci No levofloxac [facility] n 500 mg n 500 mg in 500 mg Me dical tablet TAKE tablet TAKE tablet 1 TABLET BY 1 TABLET BY TAKE 1 MOUTH EVERY MOUTH EVERY TABLET BY DAY DAY MOUTH EVERY DAY lisinopril lisinopril No 1 BID lisinopril [facility] 20 mg 20 mg 20 mg [facility] tablet Take tablet Take tablet 1 tablet 1 tablet Take 1 twice a day twice a day tablet by oral by oral twice a route for route for day by 30 days. 30 days. oral route for 30 days. metoprolol metoprolol No metoprolol [facility] tartrate 50 tartrate 50 tartrate Medical mg tablet mg tablet 50 mg Take 1 Take 1 tablet tablet tablet Take 1 twice a day twice a day tablet by oral by oral twice a route for route for day by 90 days. 90 days. oral route for 90 days. metronidazo metronidazo No metronidaz [facility] le 250 mg le 250 mg ole 250 mg Medical tablet Take tablet Take tablet 1 tablet 1 tablet Take 1 every 8 every 8 tablet hours by hours by every 8 oral route oral route hours by for 7 days. for 7 days. oral route for 7 days. mupirocin 2 mupirocin 2 No mupirocin [facility] % topical % topical 2 % Medic al ointment ointment topical APPLY APPLY ointment INSIDE BOTH INSIDE BOTH APPLY NASAL NASAL INSIDE CAVITIES CAVITIES BOTH NASAL USING Q TIP USING Q TIP CAVITIES 2 3 TIMES 2 3 TIMES USING Q DAILY AFTER DAILY AFTER TIP 2 3 USING USING TIMES SALINE SALINE DAILY SPRAY/SINUS SPRAY/SINUS AFTER RINSE RINSE USING SALINE SPRAY/SINU S RINSE Octagam 10 Octagam 10 No Octagam 10 [facility] % % % Medical intravenous intravenous intravenou solution solution s solution pregabalin pregabalin No pregabalin [facility] 150 mg 150 mg 150 mg Medical capsule capsule capsule TAKE 1 TAKE 1 TAKE 1 CAPSULE BY CAPSULE BY CAPSULE BY MOUTH THREE MOUTH THREE MOUTH TIMES A DAY TIMES A DAY THREE TIMES A DAY tizanidine tizanidine No tizanidine [facility] 4 mg tablet 4 mg tablet 4 mg M edical TAKE 1 TAKE 1 tablet TABLET BY TABLET BY TAKE 1 MOUTH EVERY MOUTH EVERY TABLET BY 8 HOURS 8 HOURS MOUTH EVERY 8 HOURS trazodone trazodone No 1 Q1D trazodone [facility] 50 mg 50 mg 50 mg Medical tablet Take tablet Take tablet 1 tablet 1 tablet Take 1 every day every day tablet by oral by oral every day route at route at by oral bedtime for bedtime for route at 30 days. 30 days. bedtime for 30 days. albuterol albuterol No albuterol [facility] sulfate HFA sulfate HFA sulfate Medical 90 90 HFA 90 mcg/actuati mcg/actuati mcg/actuat on aerosol on aerosol ion inhaler inhaler aerosol TAKE 2 TAKE 2 inhaler PUFFS BY PUFFS BY TAKE 2 MOUTH EVERY MOUTH EVERY PUFFS BY 4 TO 6 4 TO 6 MOUTH HOURS HOURS EVERY 4 TO 6 HOURS atorvastati atorvastati No atorvastat [facility] n 40 mg n 40 mg in 40 mg Medic al tablet Take tablet Take tablet 1 tablet 1 tablet Take 1 every day every day tablet by oral by oral every day route for route for by oral 90 days. 90 days. route for 90 days. azelastine azelastine No azelastine [facility] 137 mcg 137 mcg 137 mcg [facility] l (0.1 %) (0.1 %) (0.1 %) nasal spray nasal spray nasal aerosol USE aerosol USE spray 1 SPRAY IN 1 SPRAY IN aerosol EACH EACH USE 1 NOSTRIL 2 NOSTRIL 2 SPRAY IN (TWO) TIMES (TWO) TIMES EACH DAILY. USE DAILY. USE NOSTRIL 2 IN EACH IN EACH (TWO) NOSTRIL NOSTRIL TIMES DIRECTED DIRECTED DAILY. USE IN EACH NOSTRIL DIRECTED buspirone buspirone No buspirone [facility] 10 mg 10 mg 10 mg Medical tablet TAKE tablet TAKE tablet 1 TABLET BY 1 TABLET BY TAKE 1 MOUTH TWICE MOUTH TWICE TABLET BY A DAY A DAY MOUTH TWICE A DAY chlorhexidi chlorhexidi No chlorhexid [facility] ne ne ine Medical gluconate gluconate gluconate 0.12 % 0.12 % 0.12 % mouthwash mouthwash mouthwash SWISH AND SWISH AND SWISH AND SPIT OUT 15 SPIT OUT 15 SPIT OUT ML 2 (TWO) ML 2 (TWO) 15 ML 2 TIMES TIMES (TWO) DAILY. DAILY. TIMES DAILY. clindamycin clindamycin No clindamyci [facility] HCl 150 mg HCl 150 mg n HCl 150 Medical capsule capsule mg capsule TAKE 1 TAKE 1 TAKE 1 CAPSULE CAPSULE CAPSULE WITH WITH WITH BREAKFAST, BREAKFAST, BREAKFAST, 1 CAPSULE 1 CAPSULE 1 CAPSULE WITH LUNCH WITH LUNCH WITH LUNCH AND 2 AND 2 AND 2 CAPSULES IN CAPSULES IN CAPSULES THE EVENING THE EVENING IN THE FOR 14 DAYS FOR 14 DAYS EVENING FOR 14 DAYS cyanocobala cyanocobala No cyanocobal [facility] min (vit min (vit tracey (vit Me dical B-12) 1,000 B-12) 1,000 B-12) mcg/mL mcg/mL 1,000 injection injection mcg/mL solution solution injection INJECT 1 ML INJECT 1 ML solution EVERY MONTH EVERY MONTH INJECT 1 BY BY ML EVERY INTRAMUSCUL INTRAMUSCUL MONTH BY AR ROUTE AR ROUTE INTRAMUSCU LAR ROUTE D3-1999 50 D3-2000 50 No 1capsul Q1D D3-2000 50 [facility] mcg (2,000 mcg (2,000 e(s) mcg (2,000 Medical unit) unit) unit) capsule capsule capsule Take 1 Take 1 Take 1 capsule capsule capsule every day every day every day by oral by oral by oral route. route. route. Dexilant 60 Dexilant 60 No 1capsul Q1D Dexilant [facility] mg capsule, mg capsule, e(s) 60 mg [facility] delayed delayed capsule, release release delayed Take 1 Take 1 release capsule capsule Take 1 every day every day capsule by oral by oral every day route for route for by oral 90 days. 90 days. route for 90 days. duloxetine duloxetine No duloxetine [facility] 20 mg 20 mg 20 mg Medical capsule,del capsule,del capsule,de ayed ayed layed release release release TAKE 1 TAKE 1 TAKE 1 CAPSULE BY CAPSULE BY CAPSULE BY MOUTH EVERY MOUTH EVERY MOUTH DAY DAY EVERY DAY duloxetine duloxetine No duloxetine [facility] 60 mg 60 mg 60 mg Medical capsule,del capsule,del capsule,de ayed ayed layed release release release TAKE 1 TAKE 1 TAKE 1 CAPSULE BY CAPSULE BY CAPSULE BY MOUTH EVERY MOUTH EVERY MOUTH DAY IN THE DAY IN THE EVERY DAY MORNING MORNING IN THE MORNING fenofibrate fenofibrate No fenofibrat [facility] 160 mg 160 mg e 160 mg Medical tablet Take tablet Take tablet 1 tablet 1 tablet Take 1 every day every day tablet by oral by oral every day route for route for by oral 90 days. 90 days. route for 90 days. Flovent HFA Flovent HFA No 1puff(s BID Flovent [facility] 110 110 ) HFA 110 Medical mcg/actuati mcg/actuati mcg/actuat on aerosol on aerosol ion inhaler inhaler aerosol Inhale 1 Inhale 1 inhaler puff twice puff twice Inhale 1 a day by a day by puff twice inhalation inhalation a day by route as route as inhalation needed for needed for route as 30 days. 30 days. needed for 30 days. fluconazole fluconazole No fluconazol [facility] 100 mg 100 mg e 100 mg Medical tablet tablet tablet PLEASE SEE PLEASE SEE PLEASE SEE ATTACHED ATTACHED ATTACHED FOR FOR FOR DETAILED DETAILED DETAILED DIRECTIONS DIRECTIONS DIRECTIONS fluconazole fluconazole No fluconazol [facility] 150 mg 150 mg e 150 mg Medical tablet TAKE tablet TAKE tablet 1 TABLET BY 1 TABLET BY TAKE 1 MOUTH EVERY MOUTH EVERY TABLET BY DAY FOR 10 DAY FOR 10 MOUTH DAYS DAYS EVERY DAY FOR 10 DAYS hydrocodone hydrocodone No hydrocodon [facility] 10 10 e 10 Medical mg-acetamin mg-acetamin mg-acetami ophen 325 ophen 325 nophen 325 mg tablet mg tablet mg tablet TAKE 1 TAKE 1 TAKE 1 TABLET BY TABLET BY TABLET BY MOUTH THREE MOUTH THREE MOUTH TIMES A DAY TIMES A DAY THREE NEEDED NEEDED TIMES A FOR PAIN FOR PAIN DAY MAX 3/DAY MAX 3/DAY NEEDED FOR PAIN MAX 3/DAY levofloxaci levofloxaci No levofloxac [facility] n 500 mg n 500 mg in 500 mg Me dical tablet TAKE tablet TAKE tablet 1 TABLET BY 1 TABLET BY TAKE 1 MOUTH EVERY MOUTH EVERY TABLET BY DAY DAY MOUTH EVERY DAY lisinopril lisinopril No lisinopril [facility] 20 mg 20 mg 20 mg [facility] tablet Take tablet Take tablet 1 tablet 1 tablet Take 1 twice a day twice a day tablet by oral by oral twice a route for route for day by 30 days. 30 days. oral route for 30 days. metoprolol metoprolol No metoprolol [facility] tartrate 50 tartrate 50 tartrate Medical mg tablet mg tablet 50 mg Take 1 Take 1 tablet tablet tablet Take 1 twice a day twice a day tablet by oral by oral twice a route for route for day by 90 days. 90 days. oral route for 90 days. mupirocin 2 mupirocin 2 No mupirocin [facility] % topical % topical 2 % Medic al ointment ointment topical APPLY APPLY ointment INSIDE BOTH INSIDE BOTH APPLY NASAL NASAL INSIDE CAVITIES CAVITIES BOTH NASAL USING Q TIP USING Q TIP CAVITIES 2 3 TIMES 2 3 TIMES USING Q DAILY AFTER DAILY AFTER TIP 2 3 USING USING TIMES SALINE SALINE DAILY SPRAY/SINUS SPRAY/SINUS AFTER RINSE RINSE USING SALINE SPRAY/SINU S RINSE Octagam 10 Octagam 10 No Octagam 10 [facility] % % % Medical intravenous intravenous intravenou solution solution s solution pregabalin pregabalin No pregabalin [facility] 150 mg 150 mg 150 mg Medical capsule capsule capsule TAKE 1 TAKE 1 TAKE 1 CAPSULE BY CAPSULE BY CAPSULE BY MOUTH THREE MOUTH THREE MOUTH TIMES A DAY TIMES A DAY THREE TIMES A DAY tizanidine tizanidine No tizanidine [facility] 4 mg tablet 4 mg tablet 4 mg M edical TAKE 1 TAKE 1 tablet TABLET BY TABLET BY TAKE 1 MOUTH EVERY MOUTH EVERY TABLET BY 8 HOURS 8 HOURS MOUTH EVERY 8 HOURS trazodone trazodone No 1 Q1D trazodone [facility] 50 mg 50 mg 50 mg [facility] tablet Take tablet Take tablet 1 tablet 1 tablet Take 1 every day every day tablet by oral by oral every day route at route at by oral bedtime for bedtime for route at 30 days. 30 days. bedtime for 30 days. albuterol albuterol No albuterol [facility] sulfate HFA sulfate HFA sulfate Medical 90 90 HFA 90 mcg/actuati mcg/actuati mcg/actuat on aerosol on aerosol ion inhaler inhaler aerosol TAKE 2 TAKE 2 inhaler PUFFS BY PUFFS BY TAKE 2 MOUTH EVERY MOUTH EVERY PUFFS BY 4 TO 6 4 TO 6 MOUTH HOURS HOURS EVERY 4 TO 6 HOURS atorvastati atorvastati No atorvastat [facility] n 40 mg n 40 mg in 40 mg Medic al tablet Take tablet Take tablet 1 tablet 1 tablet Take 1 every day every day tablet by oral by oral every day route for route for by oral 90 days. 90 days. route for 90 days. azelastine azelastine No azelastine [facility] 137 mcg 137 mcg 137 mcg [facility] (0.1 %) (0.1 %) (0.1 %) nasal spray nasal spray nasal aerosol USE aerosol USE spray 1 SPRAY IN 1 SPRAY IN aerosol EACH EACH USE 1 NOSTRIL 2 NOSTRIL 2 SPRAY IN (TWO) TIMES (TWO) TIMES EACH DAILY. USE DAILY. USE NOSTRIL 2 IN EACH IN EACH (TWO) NOSTRIL NOSTRIL TIMES DIRECTED DIRECTED DAILY. USE IN EACH NOSTRIL DIRECTED buspirone buspirone No buspirone [facility] 10 mg 10 mg 10 mg Medical tablet TAKE tablet TAKE tablet 1 TABLET BY 1 TABLET BY TAKE 1 MOUTH TWICE MOUTH TWICE TABLET BY A DAY A DAY MOUTH TWICE A DAY chlorhexidi chlorhexidi No chlorhexid [facility] ne ne ine Medical gluconate gluconate gluconate 0.12 % 0.12 % 0.12 % mouthwash mouthwash mouthwash SWISH AND SWISH AND SWISH AND SPIT OUT 15 SPIT OUT 15 SPIT OUT ML 2 (TWO) ML 2 (TWO) 15 ML 2 TIMES TIMES (TWO) DAILY. DAILY. TIMES DAILY. clindamycin clindamycin No clindamyci [facility] HCl 150 mg HCl 150 mg n HCl 150 Medical capsule capsule mg capsule TAKE 1 TAKE 1 TAKE 1 CAPSULE CAPSULE CAPSULE WITH WITH WITH BREAKFAST, BREAKFAST, BREAKFAST, 1 CAPSULE 1 CAPSULE 1 CAPSULE WITH LUNCH WITH LUNCH WITH LUNCH AND 2 AND 2 AND 2 CAPSULES IN CAPSULES IN CAPSULES THE EVENING THE EVENING IN THE FOR 14 DAYS FOR 14 DAYS EVENING FOR 14 DAYS clonidine clonidine No clonidine [facility] HCl 0.1 mg HCl 0.1 mg HCl 0.1 mg Medical tablet Take tablet Take tablet 1 tablet 1 tablet Take 1 with with tablet elevated BP elevated BP with elevated BP cyanocobala cyanocobala No cyanocobal [facility] min (vit min (vit tracey (vit Me dical B-12) 1,000 B-12) 1,000 B-12) mcg/mL mcg/mL 1,000 injection injection mcg/mL solution solution injection INJECT 1 ML INJECT 1 ML solution EVERY MONTH EVERY MONTH INJECT 1 BY BY ML EVERY INTRAMUSCUL INTRAMUSCUL MONTH BY AR ROUTE AR ROUTE INTRAMUSCU LAR ROUTE D3-2000 50 D3-2000 50 No 1capsul Q1D D3-2000 50 [facility] mcg (2,000 mcg (2,000 e(s) mcg (2,000 Medical unit) unit) unit) capsule capsule capsule Take 1 Take 1 Take 1 capsule capsule capsule every day every day every day by oral by oral by oral route. route. route. Dexilant 60 Dexilant 60 No Dexilant [facility] mg capsule, mg capsule, 60 mg Medical delayed delayed capsule, release release delayed Take 1 Take 1 release capsule capsule Take 1 every day every day capsule by oral by oral every day route for route for by oral 90 days. 90 days. route for 90 days. duloxetine duloxetine No duloxetine [facility] 20 mg 20 mg 20 mg Medical capsule,del capsule,del capsule,de ayed ayed layed release release release TAKE 1 TAKE 1 TAKE 1 CAPSULE BY CAPSULE BY CAPSULE BY MOUTH EVERY MOUTH EVERY MOUTH DAY DAY EVERY DAY duloxetine duloxetine No duloxetine [facility] 60 mg 60 mg 60 mg Medical capsule,del capsule,del capsule,de ayed ayed layed release release release TAKE 1 TAKE 1 TAKE 1 CAPSULE BY CAPSULE BY CAPSULE BY MOUTH EVERY MOUTH EVERY MOUTH DAY IN THE DAY IN THE EVERY DAY MORNING MORNING IN THE MORNING fenofibrate fenofibrate No fenofibrat [facility] 160 mg 160 mg e 160 mg Medical tablet Take tablet Take tablet 1 tablet 1 tablet Take 1 every day every day tablet by oral by oral every day route for route for by oral 90 days. 90 days. route for 90 days. Flovent HFA Flovent HFA No 1puff(s BID Flovent [facility] 110 110 ) HFA 110 Medical mcg/actuati mcg/actuati mcg/actuat on aerosol on aerosol ion inhaler inhaler aerosol Inhale 1 Inhale 1 inhaler puff twice puff twice Inhale 1 a day by a day by puff twice inhalation inhalation a day by route as route as inhalation needed for needed for route as 30 days. 30 days. needed for 30 days. fluconazole fluconazole No fluconazol [facility] 100 mg 100 mg e 100 mg Medical tablet tablet tablet PLEASE SEE PLEASE SEE PLEASE SEE ATTACHED ATTACHED ATTACHED FOR FOR FOR DETAILED DETAILED DETAILED DIRECTIONS DIRECTIONS DIRECTIONS fluconazole fluconazole No fluconazol [facility] 150 mg 150 mg e 150 mg Medical tablet TAKE tablet TAKE tablet 1 TABLET BY 1 TABLET BY TAKE 1 MOUTH EVERY MOUTH EVERY TABLET BY DAY FOR 10 DAY FOR 10 MOUTH DAYS DAYS EVERY DAY FOR 10 DAYS hydrocodone hydrocodone No hydrocodon [facility] 10 10 e 10 Medical mg-acetamin mg-acetamin mg-acetami ophen 325 ophen 325 nophen 325 mg tablet mg tablet mg tablet TAKE 1 TAKE 1 TAKE 1 TABLET BY TABLET BY TABLET BY MOUTH THREE MOUTH THREE MOUTH TIMES A DAY TIMES A DAY THREE NEEDED NEEDED TIMES A FOR PAIN FOR PAIN DAY MAX 3/DAY MAX 3/DAY NEEDED FOR PAIN MAX 3/DAY levofloxaci levofloxaci No levofloxac [facility] n 500 mg n 500 mg in 500 mg Me dical tablet TAKE tablet TAKE tablet 1 TABLET BY 1 TABLET BY TAKE 1 MOUTH EVERY MOUTH EVERY TABLET BY DAY DAY MOUTH EVERY DAY lisinopril lisinopril No lisinopril [facility] 20 mg 20 mg 20 mg [facility] tablet Take tablet Take tablet 1 tablet 1 tablet Take 1 twice a day twice a day tablet by oral by oral twice a route for route for day by 30 days. 30 days. oral route for 30 days. metoprolol metoprolol No metoprolol [facility] tartrate 50 tartrate 50 tartrate Medical mg tablet mg tablet 50 mg Take 1 Take 1 tablet tablet tablet Take 1 twice a day twice a day tablet by oral by oral twice a route for route for day by 90 days. 90 days. oral route for 90 days. mupirocin 2 mupirocin 2 No mupirocin [facility] % topical % topical 2 % Medic al ointment ointment topical APPLY APPLY ointment INSIDE BOTH INSIDE BOTH APPLY NASAL NASAL INSIDE CAVITIES CAVITIES BOTH NASAL USING Q TIP USING Q TIP CAVITIES 2 3 TIMES 2 3 TIMES USING Q DAILY AFTER DAILY AFTER TIP 2 3 USING USING TIMES SALINE SALINE DAILY SPRAY/SINUS SPRAY/SINUS AFTER RINSE RINSE USING SALINE SPRAY/SINU S RINSE Octagam 10 Octagam 10 No Octagam 10 [facility] % % % Medical intravenous intravenous intravenou solution solution s solution pregabalin pregabalin No pregabalin [facility] 150 mg 150 mg 150 mg Medical capsule capsule capsule TAKE 1 TAKE 1 TAKE 1 CAPSULE BY CAPSULE BY CAPSULE BY MOUTH THREE MOUTH THREE MOUTH TIMES A DAY TIMES A DAY THREE TIMES A DAY tizanidine tizanidine No tizanidine [facility] 4 mg tablet 4 mg tablet 4 mg M edical TAKE 1 TAKE 1 tablet TABLET BY TABLET BY TAKE 1 MOUTH EVERY MOUTH EVERY TABLET BY 8 HOURS 8 HOURS MOUTH EVERY 8 HOURS trazodone trazodone No 1 Q1D trazodone [facility] 50 mg 50 mg 50 mg [facility] tablet Take tablet Take tablet 1 tablet 1 tablet Take 1 every day every day tablet by oral by oral every day route at route at by oral bedtime for bedtime for route at 30 days. 30 days. bedtime for 30 days. albuterol albuterol No albuterol [facility] sulfate HFA sulfate HFA sulfate Medical 90 90 HFA 90 mcg/actuati mcg/actuati mcg/actuat on aerosol on aerosol ion inhaler inhaler aerosol TAKE 2 TAKE 2 inhaler PUFFS BY PUFFS BY TAKE 2 MOUTH EVERY MOUTH EVERY PUFFS BY 4 TO 6 4 TO 6 MOUTH HOURS HOURS EVERY 4 TO 6 HOURS atorvastati atorvastati No atorvastat [facility] n 40 mg n 40 mg in 40 mg Medic al tablet Take tablet Take tablet 1 tablet 1 tablet Take 1 every day every day tablet by oral by oral every day route for route for by oral 90 days. 90 days. route for 90 days. azelastine azelastine No azelastine [facility] 137 mcg 137 mcg 137 mcg Medica l (0.1 %) (0.1 %) (0.1 %) nasal spray nasal spray nasal aerosol USE aerosol USE spray 1 SPRAY IN 1 SPRAY IN aerosol EACH EACH USE 1 NOSTRIL 2 NOSTRIL 2 SPRAY IN (TWO) TIMES (TWO) TIMES EACH DAILY. USE DAILY. USE NOSTRIL 2 IN EACH IN EACH (TWO) NOSTRIL NOSTRIL TIMES DIRECTED DIRECTED DAILY. USE IN EACH NOSTRIL DIRECTED buspirone buspirone No buspirone [facility] 10 mg 10 mg 10 mg Medical tablet TAKE tablet TAKE tablet 1 TABLET BY 1 TABLET BY TAKE 1 MOUTH TWICE MOUTH TWICE TABLET BY A DAY A DAY MOUTH TWICE A DAY chlorhexidi chlorhexidi No chlorhexid [facility] ne ne ine Medical gluconate gluconate gluconate 0.12 % 0.12 % 0.12 % mouthwash mouthwash mouthwash SWISH AND SWISH AND SWISH AND SPIT OUT 15 SPIT OUT 15 SPIT OUT ML 2 (TWO) ML 2 (TWO) 15 ML 2 TIMES TIMES (TWO) DAILY. DAILY. TIMES DAILY. clindamycin clindamycin No clindamyci [facility] HCl 150 mg HCl 150 mg n HCl 150 Medical capsule capsule mg capsule TAKE 1 TAKE 1 TAKE 1 CAPSULE CAPSULE CAPSULE WITH WITH WITH BREAKFAST, BREAKFAST, BREAKFAST, 1 CAPSULE 1 CAPSULE 1 CAPSULE WITH LUNCH WITH LUNCH WITH LUNCH AND 2 AND 2 AND 2 CAPSULES IN CAPSULES IN CAPSULES THE EVENING THE EVENING IN THE FOR 14 DAYS FOR 14 DAYS EVENING FOR 14 DAYS clonidine clonidine No clonidine [facility] HCl 0.1 mg HCl 0.1 mg HCl 0.1 mg Medical tablet Take tablet Take tablet 1 tablet 1 tablet Take 1 with with tablet elevated BP elevated BP with elevated BP cyanocobala cyanocobala No cyanocobal [facility] min (vit min (vit tracey (vit Me dical B-12) 1,000 B-12) 1,000 B-12) mcg/mL mcg/mL 1,000 injection injection mcg/mL solution solution injection INJECT 1 ML INJECT 1 ML solution EVERY MONTH EVERY MONTH INJECT 1 BY BY ML EVERY INTRAMUSCUL INTRAMUSCUL MONTH BY AR ROUTE AR ROUTE INTRAMUSCU LAR ROUTE D3-1999 50 D3-2000 50 No 1capsul Q1D D3-1999 50 [facility] mcg (2,000 mcg (2,000 e(s) mcg (2,000 Medical unit) unit) unit) capsule capsule capsule Take 1 Take 1 Take 1 capsule capsule capsule every day every day every day by oral by oral by oral route. route. route. Dexilant 60 Dexilant 60 No Dexilant [facility] mg capsule, mg capsule, 60 mg Medical delayed delayed capsule, release release delayed Take 1 Take 1 release capsule capsule Take 1 every day every day capsule by oral by oral every day route for route for by oral 90 days. 90 days. route for 90 days. duloxetine duloxetine No duloxetine [facility] 20 mg 20 mg 20 mg Medical capsule,del capsule,del capsule,de ayed ayed layed release release release TAKE 1 TAKE 1 TAKE 1 CAPSULE BY CAPSULE BY CAPSULE BY MOUTH EVERY MOUTH EVERY MOUTH DAY DAY EVERY DAY duloxetine duloxetine No duloxetine [facility] 60 mg 60 mg 60 mg Medical capsule,del capsule,del capsule,de ayed ayed layed release release release TAKE 1 TAKE 1 TAKE 1 CAPSULE BY CAPSULE BY CAPSULE BY MOUTH EVERY MOUTH EVERY MOUTH DAY IN THE DAY IN THE EVERY DAY MORNING MORNING IN THE MORNING fenofibrate fenofibrate No fenofibrat [facility] 160 mg 160 mg e 160 mg Medical tablet Take tablet Take tablet 1 tablet 1 tablet Take 1 every day every day tablet by oral by oral every day route for route for by oral 90 days. 90 days. route for 90 days. Flovent HFA Flovent HFA No 1puff(s BID Flovent [facility] 110 110 ) HFA 110 Medical mcg/actuati mcg/actuati mcg/actuat on aerosol on aerosol ion inhaler inhaler aerosol Inhale 1 Inhale 1 inhaler puff twice puff twice Inhale 1 a day by a day by puff twice inhalation inhalation a day by route as route as inhalation needed for needed for route as 30 days. 30 days. needed for 30 days. fluconazole fluconazole No fluconazol [facility] 100 mg 100 mg e 100 mg Medical tablet tablet tablet PLEASE SEE PLEASE SEE PLEASE SEE ATTACHED ATTACHED ATTACHED FOR FOR FOR DETAILED DETAILED DETAILED DIRECTIONS DIRECTIONS DIRECTIONS fluconazole fluconazole No fluconazol [facility] 150 mg 150 mg e 150 mg Medical tablet TAKE tablet TAKE tablet 1 TABLET BY 1 TABLET BY TAKE 1 MOUTH EVERY MOUTH EVERY TABLET BY DAY FOR 10 DAY FOR 10 MOUTH DAYS DAYS EVERY DAY FOR 10 DAYS hydrocodone hydrocodone No hydrocodon [facility] 10 10 e 10 Medical mg-acetamin mg-acetamin mg-acetami ophen 325 ophen 325 nophen 325 mg tablet mg tablet mg tablet TAKE 1 TAKE 1 TAKE 1 TABLET BY TABLET BY TABLET BY MOUTH THREE MOUTH THREE MOUTH TIMES A DAY TIMES A DAY THREE NEEDED NEEDED TIMES A FOR PAIN FOR PAIN DAY MAX 3/DAY MAX 3/DAY NEEDED FOR PAIN MAX 3/DAY levofloxaci levofloxaci No levofloxac [facility] n 500 mg n 500 mg in 500 mg Me dical tablet TAKE tablet TAKE tablet 1 TABLET BY 1 TABLET BY TAKE 1 MOUTH EVERY MOUTH EVERY TABLET BY DAY DAY MOUTH EVERY DAY lisinopril lisinopril No lisinopril [facility] 20 mg 20 mg 20 mg Medical tablet Take tablet Take tablet 1 tablet 1 tablet Take 1 twice a day twice a day tablet by oral by oral twice a route for route for day by 30 days. 30 days. oral route for 30 days. metoprolol metoprolol No metoprolol [facility] tartrate 50 tartrate 50 tartrate Medical mg tablet mg tablet 50 mg Take 1 Take 1 tablet tablet tablet Take 1 twice a day twice a day tablet by oral by oral twice a route for route for day by 90 days. 90 days. oral route for 90 days. mupirocin 2 mupirocin 2 No mupirocin [facility] % topical % topical 2 % Medic al ointment ointment topical APPLY APPLY ointment INSIDE BOTH INSIDE BOTH APPLY NASAL NASAL INSIDE CAVITIES CAVITIES BOTH NASAL USING Q TIP USING Q TIP CAVITIES 2 3 TIMES 2 3 TIMES USING Q DAILY AFTER DAILY AFTER TIP 2 3 USING USING TIMES SALINE SALINE DAILY SPRAY/SINUS SPRAY/SINUS AFTER RINSE RINSE USING SALINE SPRAY/SINU S RINSE Octagam 10 Octagam 10 No Octagam 10 [facility] % % % Medical intravenous intravenous intravenou solution solution s solution pregabalin pregabalin No pregabalin [facility] 150 mg 150 mg 150 mg Medical capsule capsule capsule TAKE 1 TAKE 1 TAKE 1 CAPSULE BY CAPSULE BY CAPSULE BY MOUTH THREE MOUTH THREE MOUTH TIMES A DAY TIMES A DAY THREE TIMES A DAY tizanidine tizanidine No tizanidine [facility] 4 mg tablet 4 mg tablet 4 mg M edical TAKE 1 TAKE 1 tablet TABLET BY TABLET BY TAKE 1 MOUTH EVERY MOUTH EVERY TABLET BY 8 HOURS 8 HOURS MOUTH EVERY 8 HOURS trazodone trazodone No 1 Q1D trazodone [facility] 50 mg 50 mg 50 mg Medical tablet Take tablet Take tablet 1 tablet 1 tablet Take 1 every day every day tablet by oral by oral every day route at route at by oral bedtime for bedtime for route at 30 days. 30 days. bedtime for 30 days. albuterol albuterol No albuterol [facility] sulfate HFA sulfate HFA sulfate Medical 90 90 HFA 90 mcg/actuati mcg/actuati mcg/actuat on aerosol on aerosol ion inhaler inhaler aerosol Inhale 2 Inhale 2 inhaler puffs every puffs every Inhale 2 6 hours by 6 hours by puffs inhalation inhalation every 6 route as route as hours by needed for needed for inhalation 90 days. 90 days. route as needed for 90 days. atorvastati atorvastati No atorvastat [facility] n 40 mg n 40 mg in 40 mg Medic al tablet Take tablet Take tablet 1 tablet 1 tablet Take 1 every day every day tablet by oral by oral every day route for route for by oral 90 days. 90 days. route for 90 days. buspirone buspirone No buspirone [facility] 10 mg 10 mg 10 mg Medical tablet TAKE tablet TAKE tablet 1 TABLET BY 1 TABLET BY TAKE 1 MOUTH TWICE MOUTH TWICE TABLET BY A DAY A DAY MOUTH TWICE A DAY ceftriaxone ceftriaxone No 1g ceftriaxon [facility] 1 gram 1 gram e 1 gram Medical solution solution solution for for for injection injection injection Take 1 g by Take 1 g by Take 1 g injection injection by route. route. injection route. chlorhexidi chlorhexidi No chlorhexid [facility] ne ne ine Medical gluconate gluconate gluconate 0.12 % 0.12 % 0.12 % mouthwash mouthwash mouthwash SWISH AND SWISH AND SWISH AND SPIT OUT 15 SPIT OUT 15 SPIT OUT ML 2 (TWO) ML 2 (TWO) 15 ML 2 TIMES TIMES (TWO) DAILY. DAILY. TIMES DAILY. clonidine clonidine No clonidine [facility] HCl 0.1 mg HCl 0.1 mg HCl 0.1 mg Medical tablet Take tablet Take tablet 1 tablet 1 tablet Take 1 with with tablet elevated BP elevated BP with elevated BP cyanocobala cyanocobala No 1mL Q1W cyanocobal [facility] min (vit min (vit tracey (vit Me dical B-12) 1,000 B-12) 1,000 B-12) mcg/mL mcg/mL 1,000 injection injection mcg/mL solution solution injection Inject 1 mL Inject 1 mL solution every week every week Inject 1 by by mL every subcutaneou subcutaneou week by s route for s route for subcutaneo 90 days. 90 days. us route for 90 days. cyclobenzap cyclobenzap No cyclobenza [facility] rine 10 mg rine 10 mg grayson 10 Medical tablet TAKE tablet TAKE mg tablet 1 TABLET BY 1 TABLET BY TAKE 1 MOUTH EVERY MOUTH EVERY TABLET BY DAY AT DAY AT MOUTH BEDTIME BEDTIME EVERY DAY NEEDED NEEDED AT BEDTIME NEEDED D3-2000 50 D3-2000 50 No 1capsul Q1D D3-2000 50 [facility] mcg (2,000 mcg (2,000 e(s) mcg (2,000 Medical unit) unit) unit) capsule capsule capsule Take 1 Take 1 Take 1 capsule capsule capsule every day every day every day by oral by oral by oral route. route. route. Dexilant 60 Dexilant 60 No Dexilant [facility] mg capsule, mg capsule, 60 mg Medical delayed delayed capsule, release release delayed TAKE 1 TAKE 1 release CAPSULE BY CAPSULE BY TAKE 1 MOUTH EVERY MOUTH EVERY CAPSULE BY DAY DAY MOUTH EVERY DAY duloxetine duloxetine No duloxetine [facility] 60 mg 60 mg 60 mg Medical capsule,del capsule,del capsule,de ayed ayed layed release release release TAKE 1 TAKE 1 TAKE 1 CAPSULE BY CAPSULE BY CAPSULE BY MOUTH EVERY MOUTH EVERY MOUTH DAY IN THE DAY IN THE EVERY DAY MORNING MORNING IN THE MORNING fenofibrate fenofibrate No fenofibrat [facility] 160 mg 160 mg e 160 mg Medical tablet TAKE tablet TAKE tablet 1 TABLET BY 1 TABLET BY TAKE 1 MOUTH EVERY MOUTH EVERY TABLET BY DAY DAY MOUTH EVERY DAY Flovent HFA Flovent HFA No Flovent [facility] 110 110 HFA 110 Medical mcg/actuati mcg/actuati mcg/actuat on aerosol on aerosol ion inhaler inhaler aerosol Inhale 1 Inhale 1 inhaler puff twice puff twice Inhale 1 a day by a day by puff twice inhalation inhalation a day by route as route as inhalation needed for needed for route as 90 days. 90 days. needed for 90 days. hydrocodone hydrocodone No hydrocodon [facility] 10 10 e 10 Medical mg-acetamin mg-acetamin mg-acetami ophen 325 ophen 325 nophen 325 mg tablet mg tablet mg tablet TAKE 1 TAKE 1 TAKE 1 TABLET BY TABLET BY TABLET BY MOUTH THREE MOUTH THREE MOUTH TIMES A DAY TIMES A DAY THREE NEEDED NEEDED TIMES A FOR PAIN FOR PAIN DAY MAX 3/DAY MAX 3/DAY NEEDED FOR PAIN MAX 3/DAY lisinopril lisinopril No 1 BID lisinopril [facility] 20 mg 20 mg 20 mg [facility] tablet Take tablet Take tablet 1 tablet 1 tablet Take 1 twice a day twice a day tablet by oral by oral twice a route for route for day by 90 days. 90 days. oral route for 90 days. metoprolol metoprolol No 1 BID metoprolol [facility] tartrate 50 tartrate 50 tartrate Medical mg tablet mg tablet 50 mg Take 1 Take 1 tablet tablet tablet Take 1 twice a day twice a day tablet by oral by oral twice a route for route for day by 90 days. 90 days. oral route for 90 days. pregabalin pregabalin No 1capsul TID pregabalin [facility] 150 mg 150 mg e(s) 150 mg Medical capsule capsule capsule Take 1 Take 1 Take 1 capsule 3 capsule 3 capsule 3 times a day times a day times a by oral by oral day by route for route for oral route 90 days. 90 days. for 90 days. trazodone trazodone No 1 Q1D trazodone [facility] 50 mg 50 mg 50 mg [facility] tablet Take tablet Take tablet 1 tablet 1 tablet Take 1 every day every day tablet by oral by oral every day route at route at by oral bedtime for bedtime for route at 90 days. 90 days. bedtime for 90 days. albuterol albuterol No albuterol [facility] sulfate HFA sulfate HFA sulfate Medical 90 90 HFA 90 mcg/actuati mcg/actuati mcg/actuat on aerosol on aerosol ion inhaler inhaler aerosol Inhale 2 Inhale 2 inhaler puffs every puffs every Inhale 2 6 hours by 6 hours by puffs inhalation inhalation every 6 route as route as hours by needed for needed for inhalation 90 days. 90 days. route as needed for 90 days. atorvastati atorvastati No atorvastat [facility] n 40 mg n 40 mg in 40 mg Medic al tablet Take tablet Take tablet 1 tablet 1 tablet Take 1 every day every day tablet by oral by oral every day route for route for by oral 90 days. 90 days. route for 90 days. buspirone buspirone No buspirone [facility] 10 mg 10 mg 10 mg [facility] tablet TAKE tablet TAKE tablet 1 TABLET BY 1 TABLET BY TAKE 1 MOUTH TWICE MOUTH TWICE TABLET BY A DAY A DAY MOUTH TWICE A DAY ceftriaxone ceftriaxone No 1g ceftriaxon [facility] 1 gram 1 gram e 1 gram Medical solution solution solution for for for injection injection injection Take 1 g by Take 1 g by Take 1 g injection injection by route. route. injection route. chlorhexidi chlorhexidi No chlorhexid [facility] ne ne ine Medical gluconate gluconate gluconate 0.12 % 0.12 % 0.12 % mouthwash mouthwash mouthwash SWISH AND SWISH AND SWISH AND SPIT OUT 15 SPIT OUT 15 SPIT OUT ML 2 (TWO) ML 2 (TWO) 15 ML 2 TIMES TIMES (TWO) DAILY. DAILY. TIMES DAILY. ciprofloxac ciprofloxac No 1 Q12H ciprofloxa [facility] in 500 mg in 500 mg rambo 500 mg Medical tablet Take tablet Take tablet 1 tablet 1 tablet Take 1 every 12 every 12 tablet hours by hours by every 12 oral route oral route hours by for 7 days. for 7 days. oral route for 7 days. clonidine clonidine No clonidine [facility] HCl 0.1 mg HCl 0.1 mg HCl 0.1 mg Medical tablet Take tablet Take tablet 1 tablet 1 tablet Take 1 with with tablet elevated BP elevated BP with elevated BP cyanocobala cyanocobala No 1mL Q1W cyanocobal [facility] min (vit min (vit tracey (vit Me dical B-12) 1,000 B-12) 1,000 B-12) mcg/mL mcg/mL 1,000 injection injection mcg/mL solution solution injection Inject 1 mL Inject 1 mL solution every week every week Inject 1 by by mL every subcutaneou subcutaneou week by s route for s route for subcutaneo 90 days. 90 days. us route for 90 days. cyclobenzap cyclobenzap No cyclobenza [facility] rine 10 mg rine 10 mg grayson 10 Medical tablet TAKE tablet TAKE mg tablet 1 TABLET BY 1 TABLET BY TAKE 1 MOUTH EVERY MOUTH EVERY TABLET BY DAY AT DAY AT MOUTH BEDTIME BEDTIME EVERY DAY NEEDED NEEDED AT BEDTIME NEEDED D3-1999 50 D3-2000 50 No 1capsul Q1D D3-1999 50 [facility] mcg (2,000 mcg (2,000 e(s) mcg (2,000 Medical unit) unit) unit) capsule capsule capsule Take 1 Take 1 Take 1 capsule capsule capsule every day every day every day by oral by oral by oral route. route. route. Dexilant 60 Dexilant 60 No Dexilant [facility] mg capsule, mg capsule, 60 mg Medical delayed delayed capsule, release release delayed TAKE 1 TAKE 1 release CAPSULE BY CAPSULE BY TAKE 1 MOUTH EVERY MOUTH EVERY CAPSULE BY DAY DAY MOUTH EVERY DAY duloxetine duloxetine No duloxetine [facility] 60 mg 60 mg 60 mg Medical capsule,del capsule,del capsule,de ayed ayed layed release release release TAKE 1 TAKE 1 TAKE 1 CAPSULE BY CAPSULE BY CAPSULE BY MOUTH EVERY MOUTH EVERY MOUTH DAY IN THE DAY IN THE EVERY DAY MORNING MORNING IN THE MORNING fenofibrate fenofibrate No fenofibrat [facility] 160 mg 160 mg e 160 mg Medical tablet TAKE tablet TAKE tablet 1 TABLET BY 1 TABLET BY TAKE 1 MOUTH EVERY MOUTH EVERY TABLET BY DAY DAY MOUTH EVERY DAY Flovent HFA Flovent HFA No Flovent [facility] 110 110 HFA 110 Medical mcg/actuati mcg/actuati mcg/actuat on aerosol on aerosol ion inhaler inhaler aerosol Inhale 1 Inhale 1 inhaler puff twice puff twice Inhale 1 a day by a day by puff twice inhalation inhalation a day by route as route as inhalation needed for needed for route as 90 days. 90 days. needed for 90 days. fluconazole fluconazole No 1 fluconazol [facility] 150 mg 150 mg e 150 mg Medical tablet Take tablet Take tablet 1 tablet 1 tablet Take 1 every 72 every 72 tablet hours by hours by every 72 oral route oral route hours by for 30 for 30 oral route days. days. for 30 days. hydrocodone hydrocodone No hydrocodon [facility] 10 10 e 10 Medical mg-acetamin mg-acetamin mg-acetami ophen 325 ophen 325 nophen 325 mg tablet mg tablet mg tablet TAKE 1 TAKE 1 TAKE 1 TABLET BY TABLET BY TABLET BY MOUTH THREE MOUTH THREE MOUTH TIMES A DAY TIMES A DAY THREE NEEDED NEEDED TIMES A FOR PAIN FOR PAIN DAY MAX 3/DAY MAX 3/DAY NEEDED FOR PAIN MAX 3/DAY lisinopril lisinopril No lisinopril [facility] 20 mg 20 mg 20 mg [facility] tablet Take tablet Take tablet 1 tablet 1 tablet Take 1 twice a day twice a day tablet by oral by oral twice a route for route for day by 90 days. 90 days. oral route for 90 days. metoprolol metoprolol No metoprolol [facility] tartrate 50 tartrate 50 tartrate Medical mg tablet mg tablet 50 mg Take 1 Take 1 tablet tablet tablet Take 1 twice a day twice a day tablet by oral by oral twice a route for route for day by 90 days. 90 days. oral route for 90 days. Immunizations Ordered Immunization Filled Immunization Date Status Commen ts Source Name Name influenza, influenza, 2020-07-04 Completed [facility] unspecified unspecified 00:00:00 formulation formulation influenza, influenza, 2020-07-04 Completed [facility] unspecified unspecified 00:00:00 formulation formulation influenza, influenza, 2020-07-04 Completed [facility] unspecified unspecified 00:00:00 formulation formulation influenza, influenza, 2020-07-04 Completed [facility] unspecified unspecified 00:00:00 formulation formulation influenza, influenza, 2020-07-04 Completed [facility] unspecified unspecified 00:00:00 formulation formulation influenza, influenza, 2020-07-04 Completed [facility] unspecified unspecified 00:00:00 formulation formulation influenza, influenza, 2020-07-04 Completed [facility] unspecified unspecified 00:00:00 formulation formulation influenza, influenza, 2020-07-04 Completed [facility] unspecified unspecified 00:00:00 formulation formulation influenza, influenza, 2020-07-04 Completed [facility] unspecified unspecified 00:00:00 formulation formulation influenza, influenza, 2020-07-04 Completed [facility] unspecified unspecified 00:00:00 formulation formulation influenza, influenza, 2020-07-04 Completed [facility] unspecified unspecified 00:00:00 formulation formulation Influenza Virus 2020-07-04 [facility]pleted [facility] Influenza Virus 2020-07-04 Completed [facility]00 [facility] pneumococcal pneumococcal Unknown Completed [facility] polysaccharide PPV23 polysaccharide PPV23 pneumococcal pneumococcal Unknown Completed [facility] polysaccharide PPV23 polysaccharide PPV23 pneumococcal pneumococcal Unknown Completed [facility] polysaccharide PPV23 polysaccharide PPV23 pneumococcal pneumococcal Unknown Completed [facility] polysaccharide PPV23 polysaccharide PPV23 pneumococcal pneumococcal Unknown Completed [facility] polysaccharide PPV23 polysaccharide PPV23 pneumococcal pneumococcal Unknown Completed [facility] polysaccharide PPV23 polysaccharide PPV23 pneumococcal pneumococcal Unknown Completed [facility] polysaccharide PPV23 polysaccharide PPV23 pneumococcal pneumococcal Unknown Completed [facility] polysaccharide PPV23 polysaccharide PPV23 pneumococcal pneumococcal Unknown Completed [facility] ical polysaccharide PPV23 polysaccharide PPV23 pneumococcal pneumococcal Unknown Completed [facility] ical polysaccharide PPV23 polysaccharide PPV23 pneumococcal pneumococcal Unknown Completed [facility] ical polysaccharide PPV23 polysaccharide PPV23 pneumococcal pneumococcal Unknown Completed [facility] ical polysaccharide PPV23 polysaccharide PPV23 pneumococcal pneumococcal Unknown Completed [facility] ical polysaccharide PPV23 polysaccharide PPV23 pneumococcal pneumococcal Unknown Completed [facility] ical polysaccharide PPV23 polysaccharide PPV23 pneumococcal pneumococcal Unknown Completed [facility] ical polysaccharide PPV23 polysaccharide PPV23 pneumococcal pneumococcal Unknown Completed [facility] polysaccharide PPV23 polysaccharide PPV23 pneumococcal pneumococcal Unknown Completed [facility] polysaccharide PPV23 polysaccharide PPV23 Vital Signs Vital Name Observation Time Observation Value Comments Source Height 2022-07-12 00:00:00 61 [in_i] [facility] BMI (Body Mass 2022-07-12 00:00:00 32.1 kg/m2 [facility] Medical Index) Body Weight 2022-07-12 00:00:00 2720 [oz_av] [facility] BP Diastolic 2022-07-05 00:00:00 64 mm[Hg] [facility] Height 2022-07-05 00:00:00 61 [in_i] [facility] BMI (Body Mass 2022-07-05 00:00:00 32.6 kg/m2 [facility] Medical Index) BP Systolic 2022-07-05 00:00:00 116 mm[Hg] [facility] Body Weight 2022-07-05 00:00:00 2760 [oz_av] [facility] BP Diastolic 2022-06-24 00:00:00 82 mm[Hg] [facility] Height 2022-06-24 00:00:00 61 [in_i] [facility] BMI (Body Mass 2022-06-24 00:00:00 31.2 kg/m2 [facility] Index) BP Systolic 2022-06-24 00:00:00 165 mm[Hg] [facility] Body Weight 2022-06-24 00:00:00 2640 [oz_av] [facility] BP Diastolic 2022-06-17 00:00:00 101 mm[Hg] [facility] Height 2022-06-17 00:00:00 61 [in_i] [facility] BMI (Body Mass 2022-06-17 00:00:00 30.2 kg/m2 [facility] Index) BP Systolic 2022-06-17 00:00:00 168 mm[Hg] [facility] Body Weight 2022-06-17 00:00:00 2560 [oz_av] [facility] BP Diastolic 2022-05-18 00:00:00 63 mm[Hg] [facility] Height 2022-05-18 00:00:00 61 [in_i] [facility] BMI (Body Mass 2022-05-18 00:00:00 30.2 kg/m2 [facility] Index) BP Systolic 2022-05-18 00:00:00 121 mm[Hg] [facility] Body Weight 2022-05-18 00:00:00 2560 [oz_av] [facility] BP Diastolic 2022-04-07 00:00:00 60 mm[Hg] [facility] Height 2022-04-07 00:00:00 61 [in_i] [facility] BMI (Body Mass 2022-04-07 00:00:00 30.6 kg/m2 [facility] Index) BP Systolic 2022-04-07 00:00:00 124 mm[Hg] [facility] Body Weight 2022-04-07 00:00:00 2592 [oz_av] [facility] BP Diastolic 2022-03-02 00:00:00 74 mm[Hg] [facility] Height 2022-03-02 00:00:00 61 [in_i] [facility] BMI (Body Mass 2022-03-02 00:00:00 30.2 kg/m2 [facility] Medical Index) BP Systolic 2022-03-02 00:00:00 141 mm[Hg] [facility] Body Weight 2022-03-02 00:00:00 2560 [oz_av] [facility] BP Diastolic 2022-01-08 00:00:00 56 mm[Hg] [facility] Height 2022-01-08 00:00:00 61 [in_i] [facility] BP Systolic 2022-01-08 00:00:00 94 mm[Hg] [facility] Body temperature 2021-12-28 15:42:[facility] 2021-12-28 15:42:00 154[facility]9 [facility] Body weight 2021-12-28 15:42:00 76.204 kg [facility] BMI 2021-12-28 15:42:00 31.74 kg/m2 [facility] BP Diastolic 2021-12-09 00:00:00 87 mm[Hg] [facility] Height 2021-12-09 00:00:00 61 [in_i] [facility] BMI (Body Mass 2021-12-09 00:00:00 30.2 kg/m2 [facility] Medical Index) BP Systolic 2021-12-09 00:00:00 138 mm[Hg] [facility] Body Weight 2021-12-09 00:00:00 2560 [oz_av] [facility] BP Diastolic 2021-11-13 00:00:00 90 mm[Hg] [facility] Height 2021-11-13 00:00:00 61 [in_i] [facility] BMI (Body Mass 2021-11-13 00:00:00 31.2 kg/m2 [facility] Medical Index) BP Systolic 2021-11-13 00:00:00 186 mm[Hg] [facility] Body Weight 2021-11-13 00:00:00 2640 [oz_av] [facility] BP Diastolic 2021-10-16 00:00:00 90 mm[Hg] [facility] Height 2021-10-16 00:00:00 61 [in_i] [facility] BMI (Body Mass 2021-10-16 00:00:00 30.8 kg/m2 [facility] Index) BP Systolic 2021-10-16 00:00:00 132 mm[Hg] [facility] Body Weight 2021-10-16 00:00:00 2608 [oz_av] [facility] BP Diastolic 2021-09-03 00:00:00 76 mm[Hg] [facility] Height 2021-09-03 00:00:00 61 [in_i] [facility] BMI (Body Mass 2021-09-03 00:00:00 28.3 kg/m2 [facility] Index) BP Systolic 2021-09-03 00:00:00 132 mm[Hg] [facility] Body Weight 2021-09-03 00:00:00 2400 [oz_av] [facility] BP Diastolic 2021-08-11 00:00:00 88 mm[Hg] [facility] Height 2021-08-11 00:00:00 61 [in_i] [facility] BMI (Body Mass 2021-08-11 00:00:00 29.4 kg/m2 [facility] Index) BP Systolic 2021-08-11 00:00:00 142 mm[Hg] [facility] Body Weight 2021-08-11 00:00:00 2486 [oz_av] [facility] BP Diastolic 2021-01-20 00:00:00 66 mm[Hg] [facility] Height 2021-01-20 00:00:00 61 [in_i] [facility] BMI (Body Mass 2021-01-20 00:00:00 34.8 kg/m2 [facility] Index) BP Systolic 2021-01-20 00:00:00 133 mm[Hg] [facility] Body Weight 2021-01-20 00:00:00 2944 [oz_av] [facility] Height 2021-01-13 00:00:00 61 [in_i] [facility] BMI (Body Mass 2021-01-13 00:00:00 34.4 kg/m2 [facility] Medical Index) Body Weight 2021-01-13 00:00:00 2912 [oz_av] [facility] BP Diastolic 2021-01-02 00:00:00 91 mm[Hg] [facility] Height 2021-01-02 00:00:00 61 [in_i] [facility] BMI (Body Mass 2021-01-02 00:00:00 34.6 kg/m2 [facility] Medical Index) BP Systolic 2021-01-02 00:00:00 176 mm[Hg] [facility] Body Weight 2021-01-02 00:00:00 2928 [oz_av] [facility] BP Diastolic 2020-12-26 00:00:00 86 mm[Hg] [facility] Height 2020-12-26 00:00:00 61 [in_i] [facility] BMI (Body Mass 2020-12-26 00:00:00 34.6 kg/m2 [facility] Medical Index) BP Systolic 2020-12-26 00:00:00 138 mm[Hg] [facility] Body Weight 2020-12-26 00:00:00 2928 [oz_av] [facility] Procedures Procedure Date / Time Performed Performing Clinician Sour e CT RENAL STONE 2022-08-24 23:15:00 [facility] PROTOCOL URINALYSIS SCREEN AND 2022-08-04 23:02:00 [facility] MICROSCOPY, WITH REFLEX TO CULTURE XR, abdomen, complete 2022-07-05 00:00:00 [facility] Medical XR FOOT 3+ VW RIGHT 2021-12-28 15:54:03 Jer [facility] Unlisted Px Accessory 2020-12-02 00:00:00 [facility] Medical [facility] of Fallopian 2002-06-10 00:00:00 [facility] Medical Tube Jaw [facility] Medical Arthroscopy/surgery Carpal Tunnel Surgery [facility] Med ical Delivery [facility] Medical Plan of Care Planned Activity Planned Date Details Comments Source Future Scheduled Test 2022-09-27 COVID-19 VACCINE [facility] 08:00:06 (#1) [code = COVID-19 VACCINE (#1)] Future Scheduled Test 2022-09-27 Hepatitis C Method [facility] 08:00:06 screening (procedure) [code = 547469308] Future Scheduled Test 2022-09-27 Screening for [facility] 08:00:06 malignant neoplasm of cervix (procedure) [code = 530446083] Future Scheduled Test 2022-09-27 BREAST CANCER [facility] 08:00:06 SCREENING [code = BREAST CANCER SCREENING] Future Scheduled Test 2022-09-27 COLONOSCOPY Method [facility] 08:00:06 SCREENING [code = COLONOSCOPY SCREENING] Future Scheduled Test 2022-09-27 INFLUENZA VACCINE [facility] 08:00:06 [code = INFLUENZA VACCINE] Diagnostic Test 2022-07-07 lipid panel, serum [facility] Pending 00:00:00 [code = lipid panel, serum] Diagnostic Test 2022-07-07 CMP, serum or plasma [facility] Pending 00:00:00 [code = CMP, serum or plasma] Diagnostic Test 2022-07-07 TSH, serum or plasma [facility] Pending 00:00:00 [code = TSH, serum or plasma] Diagnostic Test 2022-07-07 CBC w/ auto diff [facility] 00:00:00 [code = CBC w/ auto diff] Diagnostic Test 2022-07-07 vitamin D, [facility] Pending 00:00:00 25-hydroxy, total, serum [code = vitamin D, 25-hydroxy, total, serum] Diagnostic Test 2022-07-07 HbA1c (hemoglobin [facility] Pending 00:00:00 A1c), blood [code = HbA1c (hemoglobin A1c), blood] Diagnostic Test 2022-07-05 urinalysis, dipstick [facility] Pending 00:00:00 [code = urinalysis, dipstick] Diagnostic Test 2022-07-05 urinary tract [facility] Pending 00:00:00 pathogens panel, JARRET+probe, urine [code = urinary tract pathogens panel, JARRET+probe, urine] Future Scheduled Test 2022-05-27 HEPATITIS B VACCINES [facility] 22:25:01 (1 of 3 - 3-dose series) [code = HEPATITIS B VACCINES (1 of 3 - 3-dose series)] Future Scheduled Test 2022-05-27 COVID-19 VACCINE [facility] 22:25:01 (#1) [code = COVID-19 VACCINE (#1)] Future Scheduled Test 2022-05-27 Screening for [facility] 22:25:01 malignant neoplasm of cervix (procedure) [code = 555946237] Future Scheduled Test 2022-05-27 BREAST CANCER [facility] 22:25:01 SCREENING [code = BREAST CANCER SCREENING] Future Scheduled Test 2022-05-27 COLONOSCOPY Method [facility] 22:25:01 SCREENING [code = COLONOSCOPY SCREENING] Future Scheduled Test 2022-05-27 INFLUENZA VACCINE M [facility] 22:25:01 [code = INFLUENZA VACCINE] Instructions [facility] Encounters Start End Encounter Admission Attending Care Care Encounter Source Date/Time Date/Time Type Type Clinicians Facility Department ID 2021-07-19 Emergency [facility] [id number] Univers 15:42:13 [facility] 2021-07-18 Outpatient Shannon LINDA [facility] [id number] Univers 22:54:20 [facility] 2022-09-24 2022-09-24 Orders Vladimir, 1.2.840.1 [id number] Methodi 00:00:00 00:00:00 Only Hiwot 80476.1.[address] 3.430.2.7 Hospit a .3.289826 l .8 2022-09-09 2022-09-09 Office Guillermo, 1.2.840.1 [id number] Methodi 09:45:00 10:22:41 Visit Zeus 80745.1.[address] 3.430.2.7 Hospit a .3.333994 l .8 2022-09-09 2022-09-09 Travel 1.2.840.1 1.2.081.356 [id number] Methodi 00:00:00 00:00:[address] 3.430.2.7 0.2.7.3.698 Ho spita .3.419994 084.8 l .8 2022-09-09 2022-09-09 Outpatient GUILLERMO [facility] [id number] [place] 00:00:00 00:00:[address] ZEUS [address] 2022-08-24 2022-08-24 Hospital Guillermo, 1.2.840.1 [id number] Methodi 17:04:38 23:59:00 Encounter Zeus 72143.1.[address] 3.430.2.7 Hospit a .3.461531 l .8 2022-08-24 2022-08-24 Travel 1.2.840.1 1.2.762.102 [id number] [id number] Methodi 00:00:00 00:00:[address] 3.430.2.7 0.2.7.3.698 Ho spita .3.809346 084.8 l .8 2022-08-24 2022-08-24 [facility] [id number] [place] 00:00:00 00:00:00 ZEUS [address] 2022-08-11 2022-08-11 Telephone Guillermo, 1.2.840.1 [id number] Methodi 00:00:00 00:00:[address] 3.430.2.7 Hospit a .3.143101 l .8 2022-08-10 2022-08-10 Telephone Guillermo, 1.2.840.1 [id number] 2 [id number] Methodi 00:00:00 00:00:[address] 3.430.2.7 Hospit a .3.212216 l .8 2022-08-04 2022-08-04 Office Guillermo, 1.2.840.1 [id number] [id number] Methodi 13:00:00 14:05:07 Visit Zeus 49022.1.[address] 3.430.2.7 Hospit a .3.544894 l .8 2022-08-04 2022-08-04 Travel 1.2.840.1 1.2.185.098 [id number] Methodi 00:00:00 00:00:[address] 3.430.2.7 0.[facility].7.3.698 [facility] 084.8 l .8 2022-08-04 2022-08-04 Outpatient GUILLERMO, [facility] [id number] [place] 00:00:00 00:00:[address] ZEUS [address] 2022-07-28 2022-07-28 Telephone Katia Li.2.840.1 [id number] 2 [id number] Methodi 00:00:00 00:00:[address] 3.430.2.7 Hospit a .3.521407 l .8 2022-07-24 2022-07-24 Outpatient GC_SEFP_Riv PRIV PRIV 109 [id number] [facility] 00:00:00 00:00:00 era_A [id number] Medica l 2022-07-12 2022-07-12 Jonathon Reyes [facility] 00:00:00 00:00:[address] [facility] thuy davila MD: 676 GC_SEFP_FM_ F[address], [place] [address] , Ph. 2022-07-09 2022-07-09 Outpatient GC_SEFP_Riv PRIV PRIV 109 [id number] [facility] 00:00:00 00:00:00 era_A [id number] Medica l 2022-07-05 2022-07-05 Jonathon Reyes [facility] 17 [facility] 00:00:00 00:00:[address] [facility] thuy davila MD: 676 GC_SEFP_FM_ Fm [address] , [place] [address] , Ph. 2022-07-03 2022-07-03 Outpatient GC_SEFP_Riv PRIV PRIV 109 [id number] [facility] 00:00:00 00:00:00 era_A [id number] Medica l 2022-06-25 2022-06-25 Outpatient THADDEUS TRAVIS [id number] [address] [place] [address] 13:00:00 13:00:00 03 carlos Rangel 2022-06-25 2022-06-25 Outpatient MHIE MHIE [id number] [place] 13:00:00 13:00:00 04 l Juan Carlos 2022-06-25 2022-06-25 Outpatient MHIE MHIE [id number] [place] 13:00:00 13:00:00 03 l Juan Carlos 2022-06-25 2022-06-25 Outpatient MHIE MHIE [id number] [place] 13:00:00 13:00:00 04 carlos Rangel 2022-06-24 2022-06-24 Jonathon Reyes [facility] 00:00:00 00:00:[address] [facility] thuy davila MD: 676 GC_SEFP_FM_ F[address] [place] [address] , Ph. 2022-06-22 2022-06-22 Outpatient GC_SEFP_Riv PRIV PRIV 109 [id number] [facility] 00:00:00 00:00:00 era_A [id number] Medica l 2022-06-17 2022-06-17 Jonathon Reyes [facility] 00:00:00 00:00:[address] [facility] thuy davila MD: 676 GC_SEFP_FM_ F[address] , [place] [address] , Ph. 2022-06-14 2022-06-14 Outpatient GC_SEFP_Riv PRIV PRIV 109 [id number] [facility] 00:00:00 00:00:00 era_A [id number] Medica l 2022-05-31 2022-05-31 Sue Li, 1.2.840.1 [id number] Saroj 00:00:00 00:00:[address] 3.430.2.7 Hospit a .3.980404 l .8 2022-05-18 2022-05-18 Outpatient GC_SEFP_Riv PRIV PRIV 109 [id number] [facility] 00:00:00 00:00:00 era_A [id number] Medica l 2022-05-18 2022-05-18 Outpatient Madden-Garcia PRIV PRIV [id number] 00:00:00 00:00:00 , Jonathon Reyes [id number]-d [id number] 2022-05-18 2022-05-18 Jonathon Reyes [facility] 30 [facility] 00:00:00 00:00:[address] [facility] thuy davila MD: 676 GC_SEFP_FM_ Fm [address], [place] [address] , Ph. 2022-05-13 2022-05-13 Outpatient MHIE MHIE [id number] [place] 14:45:00 14:45:00 02 l Magnolia 2022-05-13 2022-05-13 Outpatient MHIE MHIE [id number] [place] 14:45:00 14:45:00 02 l Magnolia 2022-04-07 2022-04-07 Outpatient GC_SEFP_Riv PRIV PRIV 109 [id number] [facility] 01:25:00 01:25:00 era_A [id number] Medica l 2022-04-07 2022-04-07 Jonathon Reyes [facility] 20 [facility] 00:00:00 00:00:[address] [facility] thuy davila MD: 676 GC_SEFP_FM_ Fm [address], [place] [address] , Ph. 2022-04-07 2022-04-07 Outpatient Madden-Garcia PRIV PRIV [id number] 00:00:00 00:00:00 , Jonahton Reyes [id number]-b [id number] 2022-03-04 2022-03-04 Outpatient GC_SEFP_Riv PRIV PRIV 109 [id number] [facility] 09:40:00 09:40:00 era_A [id number] Medica l 2022-03-04 2022-03-04 Outpatient GC_SEFP_Riv PRIV PRIV 109 [id number] [facility] 09:40:00 09:40:00 era_A [id number] Medica l 2022-03-02 2022-03-02 Jonathon Reyes [facility] 14 [facility] 00:00:00 00:00:[address] [facility] thuy davila MD: 676 GC_SEFP_FM_ Fm [address], [place] [address] , Ph. 2022-03-02 2022-03-02 Outpatient [facility] PRIV eba [id number] 00:00:00 00:00:00 , Jonathon Reyes [id number] 2022-03-01 2022-03-01 Outpatient GC_SEFP_Riv PRIV PRIV 109 [id number] [facility] 05:21:00 05:21:00 era_A [id number] Medica l 2022-02-18 2022-02-18 Outpatient MHIE MHIE [id number] [place] 16:30:00 16:30:00 01 l [place] 2022-02-18 2022-02-18 Outpatient MHIE MHIE [id number] [place] 16:30:00 16:30:00 01 l Juan Carlos 2022-02-03 2022-02-03 Outpatient MHIE MHIE [id number] [place] 15:45:00 15:45:00 00 l [place] 2022-02-03 2022-02-03 Outpatient MHIE MHIE [id number] [place] 15:45:00 15:45:00 00 carlos [place] 2022-01-11 2022-01-11 Outpatient GC_SEFP_Riv PRIV PRIV 109 [id number] [facility] 08:49:00 08:49:00 era_A [id number] Medica l 2022-01-08 2022-01-08 Marivel [facility] 00:00:00 00:00:00 Dani Zaidi - 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 2022-01-08 2022-01-08 Outpatient Dyan [facility] ERMIAS [id number] c-c 00:00:00 00:00:00 Marivel 26e-11ec-8 [id number] [id number] 2022-01-07 2022-01-07 Outpatient GC_SEFP_Riv PRIV PRIV 109 [id number] [facility] 01:58:00 01:58:00 era_A [id number] Medica l 2021-12-28 2021-12-[address] [facility] 1.2.840.114 [id number] Univers 10:43:31 23:59:00 Encounter Jer SPECIALTY 350.1.13.10 [place] [phone] Wi ayushmia DANG 809 [facility] 2021-12-28 2021-12-28 Outpatient GC_SEFP_Riv PRIV PRIV 109 [id number] [facility] 11:35:00 11:35:00 era_A [id number] Medica l 2021-12-28 2021-12-28 Outpatient R [facility] [id number] Univers 11:00:00 11:15:30 JER ity of [facility] 2021-12-28 2021-12-[address] [facility] 1.2.840.114 [id number] Univers 11:00:00 11:10:00 Visit Jer SPECIALTY 350.1.13.10 [place]2.7.2.[place] [phone] Wi ayushmia BARCENAS 198 [facility] 2021-12-28 2021-12-28 Outpatient R [facility] [id number] Univers 11:00:00 11:00:00 JER ity of [facility] 2021-12-22 2021-12-22 Outpatient GC_SEFP_Riv PRIV PRIV 109 [id number] [facility] 02:55:00 02:55:00 era_A [id number] Medica l 2021-12-15 2021-12-15 Orders Doctor ALAN 1.2.840.114 [id number] Univers 00:00:00 00:00:00 Only Unassigned, ROSAS 350.1.13.10 ity of [place] [facility] 4.2.7.2.686 Christopher as [phone] [address] 2021-12-09 2021-12-09 Outpatient GC_SEFP_Riv PRIV PRIV 109 [id number] [facility] 10:01:00 10:01:00 era_A [id number] Medica l 2021-12-09 2021-12-09 Marivel [facility] 00:00:00 00:00:00 Dyan [facility] - Medic al MANUFACTURING PRODUCTION MANAGER: 676 Fm GC_SEFP_FM_ [address], [place] [address] , Ph. 2021-12-09 2021-12-09 Outpatient Dyan, PRIV PRIV [id number] 00:00:00 00:00:00 Marivel [id number] 2021-12-08 2021-12-08 Outpatient GC_SEFP_Riv PRIV PRIV 109 [id number] [facility] 04:03:00 04:03:00 era_A [id number] Medica l 2021-11-30 2021-11-30 Outpatient GC_SEFP_Riv PRIV PRIV 109 [id number] [facility] 05:05:00 05:05:00 era_A [id number] Medica l 2021-11-18 2021-11-18 [facility]phone [facility] 1.2.840.114 [id number] [facility] 00:00:00 00:00:00 Jer SPECIALTY 350.1.13.10 ity of CARE 4.2.7.2.686 [facility] AT [phone] Wi ayushmia DANG [address] [place] [address] 2021-11-16 2021-11-16 Outpatient R BERNARD [facility] [id number] Univers 11:00:00 11:24:46 JER ity of [facility] 2021-11-16 2021-11-[address] [facility] 1.2.840.114 [id number] [facility] 11:00:00 11:10:00 Visit Jer SPECIALTY 350.1.13.10 ity of CARE 4.2.7.2.686 [facility] AT [phone] Wi ayushmia DANG [address] [place] [address] 2021-11-162021-11-16 Outpatient R BERNARD [facility] [id number] Univers 11:00:00 11:00:00 JER rodrigo [facility] 2021-11-13 2021-11-13 Marivel [facility] 00:00:00 00:00:00 Dyan [facility] - Medic al MANUFACTURING PRODUCTION MANAGER: 676 Fm GC_SEFP_FM_ [address], [place] [place], [place] [address] , Ph. 2021-11-13 2021-11-13 Outpatient Dyan [facility] PRIV [id number] 00:00:00 00:00:00 Marivel [id number]-8 [id number] 2021-11-11 2021-11-12 Emergency [facility] [id number] Univers 22:39:00 01:10:00 [facility] 2021-11-11 2021-11-12 Emergency [facility] 1.2.350.461 [id number] Univers 22:39:00 01:10:00 Kelly [place] 350.1.13.10 [facility] 4.2.7.2.686 [facility] [phone] [address] 2021-11-11 2021-11-12 Emergency [facility] [id number] Univers 22:39:00 01:10:00 KELLY wallace [facility] 2021-11-11 2021-11-11 Outpatient GC_SEFP_Riv PRIV PRIV 109 [id number] [facility] 07:22:00 07:22:00 era_A [id number] Medica l 2021-11-11 2021-11-11 Outpatient GC_SEFP_Riv PRIV PRIV 109 [id number] [facility] 07:22:00 07:22:00 era_A [id number] Medica l 2021-11-11 2021-11-11 Outpatient GC_SEFP_Riv PRIV PRIV 109 [id number] [facility] 07:22:00 07:22:00 era_A [id number] Medica l 2021-10-21 2021-10-21 Sue Gilbert 1.2.840.1 [id number] Methodi 00:00:00 00:00:[address] 3.430.2.7 Hospit a .3.239956 l .8 2021-10-21 2021-10-21 Katia Crowder.2.840.1 [id number] Methodi 00:00:00 00:00:[address] 3.430.2.7 Hospit a .3.361907 l .8 2021-10-16 2021-10-16 Outpatient GC_SEFP_Riv PRIV PRIV 109 [id number] [facility] 07:19:00 07:19:00 era_A [id number] Medica l 2021-10-16 2021-10-16 Marivel PRIV [facility] - [facility] 00:00:00 00:00:00 Dyan [facility] - Medic al MANUFACTURING PRODUCTION MANAGER: 676 Fm GC_SEFP_FM_ [address], [place], [place] [address] , Ph. 2021-10-16 2021-10-16 Outpatient Dyan, [facility] PRIV [id number] 00:00:00 00:00:00 Marivel 6ad-11ec-b [id number] 2021-10-15 2021-10-15 Outpatient GC_SEFP_Riv PRIV PRIV 109 [id number] [facility] 11:26:00 11:26:00 era_A [id number] Medica l 2021-09-21 2021-09-21 Outpatient GC_SEFP_Riv PRIV PRIV 109 [id number] [facility] 01:28:00 01:28:00 era_A [id number] Medica l 2021-09-10 2021-09-10 Outpatient GC_SEFP_Riv PRIV PRIV 109 [id number] [facility] 03:32:00 03:32:00 era_A [id number] Medica l 2021-09-03 2021-09-03 Outpatient GC_SEFP_Riv PRIV PRIV 109 [id number] [facility] 12:40:00 12:40:00 era_A [id number] Medica l 2021-09-03 2021-09-03 Outpatient GC_SEFP_Riv PRIV PRIV 109 [id number] [facility] 12:40:00 12:40:00 era_A [id number] Medica l 2021-09-03 2021-09-03 Marivel [facility] [id number] [facility] 00:00:00 00:00:00 Dyan [facility] Medic al MANUFACTURING PRODUCTION MANAGER: 676 Fm GC_SEFP_FM_ [address], [place] [address] , Ph. 2021-09-03 2021-09-03 Outpatient Dyan, PRIV PRIV [id number] c-5 00:00:00 00:00:00 Marivel a-11ec-8 [id number] [id number] 2021-08-28 2021-08-28 Outpatient GC_SEFP_Riv PRIV PRIV 109 [id number] [facility] 12:53:00 12:53:00 era_A [id number] Medica l 2021-08-28 2021-08-28 Outpatient GC_SEFP_Riv PRIV PRIV 109 [id number] [facility] 12:53:00 12:53:00 era_A [id number] Medica l 2021-08-28 2021-08-28 Outpatient GC_SEFP_Riv PRIV PRIV 109 [id number] [facility] 12:53:00 12:53:00 era_A [id number] Medica l 2021-08-20 2021-08-20 Outpatient GC_SEFP_Riv PRIV PRIV 109 [id number] [facility] 12:00:00 12:00:00 era_A [id number] Medica l 2021-08-20 2021-08-20 Outpatient GC_SEFP_Riv PRIV PRIV 109 [id number] [facility] 12:00:00 12:00:00 era_A [id number] Medica l 2021-08-18 2021-08-18 Jonathon Reyes [facility] [id number] [facility] 00:00:00 00:00:[address] [facility] thuy davila MD: 676 GC_SEFP_FM_ Fm [address] [place] [address], [place] [address] , Ph. 2021-08-16 2021-08-16 Outpatient GC_SEFP_Riv PRIV PRIV 109 [id number] [facility] 10:43:00 10:43:00 era_A [id number] Medica l 2021-08-16 2021-08-16 Outpatient GC_SEFP_Riv PRIV PRIV 109 [id number] [facility] 10:43:00 10:43:00 era_A [id number] Medica l 2021-08-11 2021-08-11 Jonathon Reyes PRIV [facility] [id number] [facility] 00:00:00 00:00:[address] [facility] thuy davila MD: 676 GC_SEFP_FM_ Fm [address] [facility] [address], [place] [address] , Ph. 2021-08-11 2021-08-11 Outpatient [facility] PRIV [id number] 00:00:00 00:00:00 , Jonathon Reyes [id number] 2021-07-16 2021-07-16 Emergency X ALEC, K [facility] ERT [id number] Univers 14:42:00 16:33:00 ity of [facility] 2021-07-16 2021-07-16 Emergency Alec K [facility] 1.2.840.114 [id number] Univers 14:42:00 16:33:00 Henrietta LEARY 350.1.13.10 i ty [facility] 4.2.7.2.686 [facility] [phone] [facility] [address] 2021-03-19 2021-03-19 Telephone [facility] 1.2.840.114 [id number] Univers 00:00:00 00:00:00 Liyah MOORE 350.1.13.10 ity of [facility] 4.2.7.2.[address] [facility] [phone] [facility] [address] 2021-03-17 2021-03-17 Telephone [facility] 1.2.840.114 [id number] Univers 00:00:00 00:00:00 Liyah MOORE 350.1.13.10 [facility] [place].7.2.686 [place] [phone] [address] 2021-02-09 2021-02-09 [id number] Univers 08:00:00 08:00:00 [facility] 2021-02-05 2021-02-05 Outpatient [facility] [id number] Univers 14:15:00 14:15:00 [facility] 2021-02-01 2021-02-01 Outpatient GC_SEFP_Nek PRIV PRIV 109 [id number] [facility] 12:08:00 12:08:00 ooi_N [id number] Medica l 2021-01-27 2021-01-27 Outpatient Shannon TANESHA [facility] [id number] Univers 09:00:00 09:00:00 [facility] 2021-01-26 2021-01-26 Outpatient GC_SEFP_Nek PRIV PRIV 109 [id number] [facility] 12:19:00 12:19:00 ooi_N [id number] Medica l 2021-01-26 2021-01-26 [facility]patient [facility] [id number] Univers 10:00:00 10:00:00 [facility] 2021-01-22 2021-01-22 Outpatient GC_SEFP_Nek PRIV PRIV 109 [id number] [facility] 03:35:00 03:35:00 ooi_N [id number] Medica l 2021-01-20 2021-01-20 Jonathon Reyes [facility] 04 [facility] 00:00:00 00:00:[address] [facility] thuy davila MD: 676 GC_SEFP_FM_ F[address], [place] [address] , Ph. 2021-01-20 2021-01-20 Outpatient [facility] PRIV PRIV [id number] 00:00:00 00:00:00 , Jonathon Reyes [id number] 2021-01-19 2021-01-19 Outpatient GC_SEFP_Nek PRIV PRIV 109 [id number] [facility] 12:17:00 12:17:00 ooi_N [id number] Medica l 2021-01-17 2021-01-17 Outpatient GC_SEFP_Nek PRIV PRIV 109 [id number] [facility] 07:24:00 07:24:00 ooi_N [id number] Medica l 2021-01-14 2021-01-14 Outpatient GC_SEFP_Nek PRIV PRIV 109 [id number] [facility] 03:24:00 03:24:00 ooi_N [id number] Medica l 2021-01-13 2021-01-13 Emergency [facility] 1.2.840.114 [id number] [facility] 17:49:00 21:45:00 [facility] 350.1.13.10 it y [facility] 4.2.7.2.686 [facility] [id number] [address] ([facility] 2021-01-13 2021-01-13 Jonathon Reyes [facility]IV [facility] 27 [facility] 00:00:00 00:00:[address] [facility] thuy davila MD: 676 GC_SEFP_FM_ Fm [address], [place] [address] , Ph. 2021-01-13 2021-01-13 Outpatient [facility] PRIV [id number] 00:00:00 00:00:00 , Jonathon Reyes [id number] 2021-01-12 2021-01-12 Office [facility] 1.2.840.114 [id number] Univers 14:10:49 14:40:49 Visit Jose MOORE 350.1.13.10 ronaly [facility] 4.2.7.2.686 [facility] [phone] [address] 2021-01-12 2021-01-12 Outpatient Shannon HUANG [facility] [id number] [facility] 14:30:00 14:30:00 JOSE wallace [facility] 2021-01-12 2021-01-12 Outpatient GC_SEFP_Nek PRIV PRIV [id number] [facility] 12:25:00 12:25:00 ooi_N [id number] Medica l 2021-01-10 2021-01-10 Outpatient GC_SEFP_Nek PRIV PRIV [id number] [facility] 08:00:00 08:00:00 ooi_N [id number] Medica l 2021-01-06 2021-01-06 Orders Doctor ALAN 1.2.840.114 [id number] [facility] 00:00:00 00:00:00 Only Unassigned, ROSAS [id number] ity of [place] [facility] 4.2.7.2.686 Christopher as [phone] [address] 2021-01-04 2021-01-04 Outpatient GC_SEFP_Nek PRIV PRIV 109 [id number] [facility] 11:28:00 11:28:00 ooi_N [id number] Medica l 2021-01-02 2021-01-02 Jonathon Eric [facility] 16 [facility] 00:00:00 00:00:[address] [facility] thuy davila MD: 676 GC_SEFP_FM_ Fm [address], [place] [address] , Ph. 2021-01-02 2021-01-02 Outpatient [facility] PRIV PRIV [id number] 00:00:00 00:00:00 , Jonathon Eric [id number] 2021-01-01 2021-01-01 Outpatient GC_SEFP_Nek PRIV PRIV [id number] [facility] 05:09:00 05:09:00 ooi_N [id number] Medica l 2020-12-26 2020-12-26 Jonathon Eric [facility] [id number] [facility] 00:00:00 00:00:[address] [facility] thuy davila MD: 676 GC_SEFP_FM_ Fm [address], [place] [address] , Ph. 2020-12-26 2020-12-26 Outpatient Madden-Garcia PRIV PRIV [id number] 00:00:00 00:00:00 , Jonathon Reyes [id number] 2020-12-17 2020-12-17 Telephone [facility] 1.2.840.114 [id number] Univers 00:00:00 00:00:00 Liyah Juventino MOORE [id number] ity of [facility] 4[place].7.2.[address] [place] [id number] [facility] [address] 2020-12-12 2020-12-12 Office [facility] [id number] [id number] Univers 07:49:40 08:04:40 Visit Liyah Juventino MOORE [id number] ity of [facility] 4[place]2.7.2.[address] [place] [phone] [facility] [address] 2020-12-12 2020-12-12 Outpatient [facility] [id number] Univers 08:00:00 08:00:00 [facility] ity of [facility] 2020-12-08 2020-12-08 Orders Doctor WAQAS 1.2.840.114 [id number] Univers 00:00:00 00:00:00 Only Unassigned, ROSAS [id number] ity of [place] [facility] 4.2.7.2.[phone] [facility] [address] 2020-12-05 2020-12-05 Telephone [facility] 1.2.840.114 [id number] Univers 00:00:00 00:00:00 [facility] Juventino CHRISTINATERESA 350.1.13.10 ity of [facility] 4[place]2.7.2.[address] [place] [id number] [facility] [address] 2020-12-04 2020-12-04 [facility] 1.2.840.114 [id number] Univers 06:13:00 11:51:00 [id number] [facility] 4.2.7.2.686 [place] [phone] [address] ([facility]) 2020-12-04 2020-12-04 Refill [facility] 1.2.527.350 [id number] Univers 00:00:00 00:00:00 Liyah Hameed TERESA 350.1.13.10 ity of [facility] 4.2.7.2.686 [place] [place] [phone] [address] 2020-12-04 2020-12-04 Telephone Tanesha [facility] 1.2.840.114 [id number] Univers 00:00:00 00:00:00 Liyah Juventino CHRISTINATERESA 350.1.13.10 ity of [facility] 4.2.7.2.686 [place] [phone] [address] 2020-12-04 2020-12-04 Patient Home [facility] 1.2.840.114 [id number] Univers 00:00:00 00:00:00 Outreach Sebastian ARITA 350.1.13.10 i ty of [facility] 4.2.7.2.[address] [facility] [phone] Wi dical [address] [place] 2020-12-01 2020-12-01 Outpatient R TANESHA [facility] [id number] Univers 15:45:00 15:45:00 [facility] ity of [facility] 2020-11-27 2020-11-27 Orders Doctor ALAN 1.2.840.114 [id number] Univers 00:00:00 00:00:00 Only Unassigned, ROSAS 350.1.13.10 ity of [place] [facility] 4.2.7.2.686 Christopher as [phone] [address] 2020-11-17 2020-11-17 Orders Doctor ALAN 1.2.840.114 [id number] Univers 00:00:00 00:00:00 Only Unassigned, ROSAS 350.1.13.10 ity of [place] [facility] 4.2.7.2.686 Christopher as [phone] [address] 2020-10-29 2020-10-29 Office [facility] [id number] Univers 10:37:28 10:52:28 Visit Liyah MOORE 350.1.13.10 ity of [facility] 4.2.7.2.[address] [place] [phone] [facility] [address] 2020-10-29 2020-10-[address] [facility] [id number] Univers 10:30:00 10:30:00 [facility] 2020-10-29 2020-10-29 Orders Doctor WAQAS 1.2.840.114 [id number] Univers 00:00:00 00:00:00 Only Unassigned, ROSAS 350.1.13.10 ity of [place] [facility] 4.2.7.2.[phone] [facility] [address] 2020-10-15 2020-10-21 Inpatient EM Kehinde, [facility] TELE [id number] 32 [facility] 00:29:00 09:02:08 Lillian 57 Kasia hameed [facility] 2020-10-15 2020-10-[address] [facility] [id number] Univers 00:00:00 00:00:00 [facility] 2020-10-14 2020-10-[address] [facility] [id number] Univers 12:43:11 23:59:00 [facility] 2020-10-14 2020-10-14 [facility] 1.2.840.114 [id number] Univers 12:34:01 23:59:00 Encounter Liyah Hameed SPECIALTY 350.1.13.10 ity of [facility] 4.2.7.2.686 [facility] [phone] Wi thuy DANG [address] [place] [address] 2020-09-29 2020-09-29 Telephone [facility] 1.2.840.114 [id number] 00:00:00 00:00:00 Liyah MOORE 350.1.13.10 [facility] 4.2.7.2.686 [id number] [facility] 2020-09-29 2020-09-29 Telephone Tanesha [facility] 1.2.840.114 [id number] Univers 00:00:00 00:00:00 Liyahfrancois MOORE 350.1.13.10 ity of [facility] 4.2.7.2.[place] [phone] [address] 2020-09-26 2020-09-26 Telephone WAQAS Fox [id number] 00:00:00 00:00:00 Jc PILLAI 350.1.13.10 [facility] 4.2.7.2.686 [id number] [facility] 2020-09-26 2020-09-26 Telephone WAQAS Fox [id number] [id number] [facility] 00:00:00 00:00:00 Jc PILLAI 350.1.13.10 i ty of [facility] 4.2.7.2.686 Christopher as [phone] [address] 2020-09-24 2020-09-24 [facility] [id number] Univers 14:15:00 14:15:00 [facility] 2020-09-24 2020-09-24 [facility] [id number] Univers 14:15:00 14:15:00 [facility] 2020-09-24 2020-09-24 [facility] 1.2.229.720 [id number] Univers 13:55:47 14:10:47 Visit Liyah Juventino MOORE 350.1.13.10 ity of [facility] 4.2.7.2.686 [place] [phone] [address] 2020-09-24 2020-09-24 Refill Dominique [facility] 1.2.840.114 [id number] Univers 00:00:00 00:00:00 Jc MOORE 350.1.13.10 ity of [facility] 4.2.7.2.686 [place] [phone] [facility] [address] Results Test Description Test Time Test Comments Results Result Comments Source Urinalysis screen and microscopy, with reflex to culture 202 10-30-18 08:13:00 Test Item Value Reference Range Interpretation Comme nts Color, UA (test code = YELLOW YELLOW 5778-6) Appearance (test code = CLOUDY CLEAR A 5767-9) Specific gravity, urine 1.001-1.035 (test code = 5811-5) pH, urine (test code = 5.0-8.0 5803-2) Glucose, urine (test TRACE NEGATIVE A code = 93506-5) Bilirubin, UA (test code NEGATIVE NEGATIVE = 5770-3) Ketones, UA (test code = NEGATIVE NEGATIVE 2514-8) Occult blood, urine NEGATIVE NEGATIVE (test code = 5794-3) Protein, UA (test code = NEGATIVE NEGATIVE 91092-6) Nitrite, UA (test code = NEGATIVE NEGATIVE 5802-4) Leukocyte esterase, UA 2+ NEGATIVE A (test code = 5799-2) WBC, UA (test code = 10-20 See_Comment A [Autom ated message] 5821-4) The system [employer] generated this result transmitted ref erence range: < OR = 5 /HPF. The reference r maite was not used to int erpret this result as normal/abnormal . RBC, UA (test code = NONE SEEN See_Comment [Autom ated message] 63923-4) The system [employer] generated this result transmitted ref erence range: < OR = 2 /HPF. The reference r maite was not used to int erpret this result as normal/abnormal . Squamous epithelial 0-5 See_Comment [Automa juhi message] cells, UA (test code = The s ystem which 99345-5) generated this result transmitted ref erence range: < OR = 5 /HPF. The reference r maite was not used to int erpret this result as normal/abnormal . Bacteria, UA (test code MANY NONE SEEN /HPF A = 5769-5) Hyaline casts, UA (test NONE SEEN NONE SEEN /LPF code = 5796-8) Note: (test code = This urin e was analyzed 8251-1) for the presenc e of WBC, RBC, bacte william, casts, and othe r formed elements. Only those elements seen w ere reported. Urine culture (test code SEE NOTE A CU LTURE, URINE, = 630-4) ROUTINE Micro N umber: [id number] Test S tatus: Final Specimen Source: Urine Specimen Quality: Adequate Result : Greater than 10 0,000 CFU/mL of Esche richia coli E.coli - INT PHOEBE AMOX/CLAVUL ANATE S 4 AMPICILLIN S 8 AMP/SULBACTAM S 4 CEFAZOLIN NR <= 4 2 CEFEPIME S <=1 CEFTAZIDIME S < =1 CEFTRIAXONE S < =1 CIPROFLOXACIN S <=0.25 GENTAMICIN S <= 1 IMIPENEM S &lt ;=0.25 LEVOFLOXACIN S <=0.12 NITROFURANTOIN S <=16 PIP/TAZOBACTAM S <=4 TOBRAMYCIN S <= 1 TRIMETHOPRIM/POSADA LFA S <=20 S=Suscepti ble I=Intermediate R=Resistant * = Not TestedNR = Not Reported NN = See Ther apy Comments THERAP Y COMMENTS Note 1 : For infections othe r than uncomplicated U TI caused by E. co li, K. pneumoniae or P . mirabilis: Cefa zolin is resistant if KS C > or = 8 mcg/mL. (Distinguishing susceptible wilbur verónica intermediate fo r isolates with M IC < or = 4 mcg/mL requ ires additional test ing.) Note 2: For uncomplicated U TI caused by E. co li, K. pneumoniae or P . mirabilis: Cefa zolin is susceptible if PHOEBE <32 mcg/mL and pred icts susceptible to the oral agents cefaclor , cefdinir, cefpo doxime, cefprozil, cefu roxime, cephalexin and loracarbef. RAC (test code = RAC) Performing Organization Information: Site ID: RGA Name: [facility] Address: [address] [place] [id number] Director: Hieu Valle Lab Interpretation (test Abnormal code = 21202-5) [facility] panel - [id number] 10:43:45 Test Item Value Reference Range Interpretation Comments Leukocytes (test code = 2+ Leukocytes) Nitrite (test code = Nitrite) negative Urobilinogen (test code = 0.2 Urobilinogen) Protein (test code = Protein) Trace pH (test code = pH) 6.0 Blood (test code = Blood) Negative Specific [place] (test code = 1.025 Specific [place]) Ketone (test code = Ketone) Negative Bilirubin (test code = Negative Bilirubin) Glucose (test code = Glucose) Negative Appearance (test code = Slightly Cloudy Appearance) Color (test code = Color) Dark Yellow [facility] (dip[facility]) panel - [id number] 10:43:45 Test Item Value Reference Range Interpretation Comments Leukocytes (test code = 2+ Leukocytes) Nitrite (test code = Nitrite) negative Urobilinogen (test code = 0.2 Urobilinogen) Protein (test code = Protein) Trace pH (test code = pH) 6.0 Blood (test code = Blood) Negative Specific [place] (test code = 1.025 Specific [place]) Ketone (test code = Ketone) Negative Bilirubin (test code = Negative Bilirubin) Glucose (test code = Glucose) Negative Appearance (test code = Slightly Cloudy Appearance) Color (test code = Color) Dark Yellow [facility] identified in Urine by [id number] 00:00:00 Test Item Value Reference Range Interpretation Comments culture, urine (test code = see below no growth A culture, urine) [facility] identified in Urine by [id number] 00:00:00 Test Item Value Reference Range Interpretation Comments culture, urine (test code = see below no growth A culture, urine) [facility] macro (dipstick) panel - [id number] 12:29:54 Test Item Value Reference Range Interpretation Comments Leukocytes (test code = 3+ Leukocytes) Nitrite (test code = Nitrite) negative Urobilinogen (test code = 0.2 Urobilinogen) Protein (test code = Protein) Trace pH (test code = pH) 7.0 Blood (test code = Blood) Small Specific [place] (test code = 1.010 Specific [place]) Ketone (test code = Ketone) Negative Bilirubin (test code = Bilirubin) Negative Glucose (test code = Glucose) Negative Appearance (test code = Clear Appearance) Color (test code = Color) Dark Yellow [facility] macro (dipstick) panel - [id number] 12:29:54 Test Item Value Reference Range Interpretation Comments Leukocytes (test code = 3+ Leukocytes) Nitrite (test code = Nitrite) negative Urobilinogen (test code = 0.2 Urobilinogen) Protein (test code = Protein) Trace pH (test code = pH) 7.0 Blood (test code = Blood) Small Specific [place] (test code = 1.010 Specific [place]) Ketone (test code = Ketone) Negative Bilirubin (test code = Bilirubin) Negative Glucose (test code = Glucose) Negative Appearance (test code = Clear Appearance) Color (test code = Color) Dark Yellow [facility] identified in Urine by [id number] 00:00:00 Test Item Value Reference Range Interpretation Comments culture, urine (test code = see below no growth culture, urine) [facility] identified in Urine by [id number] 00:00:00 Test Item Value Reference Range Interpretation Comments culture, urine (test code = see below no growth culture, urine) [facility] identified in Urine by [id number] 00:00:00 Test Item Value Reference Range Interpretation Comments culture, urine (test code = see below no growth culture, urine) [facility] Medical[facility]IPID PROFILE (CORONARY RISK)2020-10-25 23:31:00 Test Item Value Reference Range Interpretation Comments TRIGLYCERIDES (test code = TRIG) 349 mg/dl 40.0-150.0 H CHOLESTEROL (test code = CHOL) 217 mg/dl 0.0-200.0 H CHOLESTEROL/HDL RATIO (test code = 9.0 RATIO CHOLHDL) HDL CHOLESTEROL (test code = HDL) 24 mg/dl 30.0-60.0 L LIPOPROTEIN LDL (test code = LDL) 137 mg/dl 70-130 H CREATINE KINASE (CK)2020-10-25 23:31:00 Test Item Value Reference Range Interpretation Comments CREATINE KINASE (CK) (test code = 94 Units/L 21-215 N CK) VITAMIN [id number] 23:31:00 Test Item Value Reference Range Interpretation Comments VITAMIN B12 (test code = VITB12) 482 pg/mL 193-986 N T3 [id number] 23:31:00 Test Item Value Reference Range Interpretation Comments T3 FREE (test code = 3.1 pg/mL 2.0-4.4 Perform ed At: [facility] T3F) Ckedypn3456 [facility] [place], [place] [id number] Amarjit Tavera MD Ph:[phone] T3 [id number] 23:31:00 Test Item Value Reference Range Interpretation Comments T3 REVERSE 20.2 ng/dL 9.2-24.1 This test was d eveloped and its (test code = performance T3REV) characteristics determined by [facility]. It has not been cleared orappro jayna by the Food and Drug Administration. Performed At: [facility] [id number] [place], [place] [id number] Meek MD Ph:[phone] ST PERFORMED AT [address] [address] T4 [id number] 23:31:00 Test Item Value Reference Range Interpretation Comments T4 FREE (test code = T4F) 1.15 ng/dl 0.82-1.77 N VITAMIN D 1,34-[id number] 23:31:00 Test Item Value Reference Range Interpretation Comments VITAMIN D 53.5 pg/mL 19.9-79.3 Performed At: B N 1,25-DIHYDROXY (test [facility] [address] code = [id number]) [place], [place] [id number] tanner Meek MD Ph:[phone] LIPID PROFILE (CORONARY RISK)2020-10-20 14:55:00 Test Item Value Reference Range Interpretation Comments TRIGLYCERIDES (test code = TRIG) 349 mg/dl 40.0-150.0 H CHOLESTEROL (test code = CHOL) 217 mg/dl 0.0-200.0 H CHOLESTEROL/HDL RATIO (test code = 9.0 RATIO CHOLHDL) HDL CHOLESTEROL (test code = HDL) 24 mg/dl 30.0-60.0 L LIPOPROTEIN LDL (test code = LDL) 137 mg/dl 70-130 H CREATINE KINASE (CK)2020-10-20 14:55:00 Test Item Value Reference Range Interpretation Comments CREATINE KINASE (CK) (test code = 94 Units/L 21-215 N CK) VITAMIN [id number] 14:55:00 Test Item Value Reference Range Interpretation Comments VITAMIN B12 (test code = VITB12) 482 pg/mL 193-986 N T3 [id number] 14:55:00 Test Item Value Reference Range Interpretation Comments T3 FREE (test code = 3.1 pg/mL 2.0-4.4 Perform ed At: HD [facility] T3F) [address] [id number] Tavera MD Ph:[phone] T3 [id number] 14:55:00 Test Item Value Reference Range Interpretation Comments T3 REVERSE (test code = T3REV) T4 [id number] 14:55:00 Test Item Value Reference Range Interpretation Comments T4 FREE (test code = T4F) 1.15 ng/dl 0.82-1.77 N VITAMIN D 1,59-[id number] 14:55:00 Test Item Value Reference Range Interpretation Comments VITAMIN D 53.5 pg/mL 19.9-79.3 Performed At: N 1,25-DIHYDROXY (test [facility] [place] [address] code = [id number]) [place], [place] [id number] tanner Meek MD Ph:[phone] AB THYROID [id number] 07:57:00 Test Item Value Reference Range Interpretation Comments AB THYROID PEROXIDASE <9 IU/mL 0-34 Perfor med At: HD (test code = THYPAB) [facility] [address] [id number] ren Tavera MD Ph:[phone] PERFORMED AT [place] [address] [place] [address] LIPID PROFILE (CORONARY RISK)2020-10-17 07:55:00 Test Item Value Reference Range Interpretation Comments TRIGLYCERIDES (test code = TRIG) 349 mg/dl 40.0-150.0 H CHOLESTEROL (test code = CHOL) 217 mg/dl 0.0-200.0 H CHOLESTEROL/HDL RATIO (test code = 9.0 RATIO CHOLHDL) HDL CHOLESTEROL (test code = HDL) 24 mg/dl 30.0-60.0 L LIPOPROTEIN LDL (test code = LDL) 137 mg/dl 70-130 H CREATINE KINASE (CK)2020-10-17 07:55:00 Test Item Value Reference Range Interpretation Comments CREATINE KINASE (CK) (test code = 94 Units/L 21-215 N CK) VITAMIN [id number] 07:55:00 Test Item Value Reference Range Interpretation Comments VITAMIN B12 (test code = VITB12) 482 pg/mL 193-986 N T3 [id number] 07:55:00 Test Item Value Reference Range Interpretation Comments T3 FREE (test code = 3.1 pg/mL 2.0-4.4 Perform ed At: [facility] T3F) [address] [place], [place] [id number] Amarjit Tavera MD Ph:[phone] T3 [id number] 07:55:00 Test Item Value Reference Range Interpretation Comments T3 REVERSE (test code = T3REV) T4 [id number] 07:55:00 Test Item Value Reference Range Interpretation Comments T4 FREE (test code = T4F) 1.15 ng/dl 0.82-1.77 N VITAMIN D 1,29-[id number] 07:55:00 Test Item Value Reference Range Interpretation Comments VITAMIN D 1,25-DIHYDROXY (test code = pg/mL 19.9-79.3 [id number]) BASIC METABOLIC [id number] 07:37:00 Test Item Value Reference Range Interpretation Comments SODIUM (test code = NA) 135 mmol/l 134.0-147.0 N POTASSIUM (test code = K) 4.1 mmol/L 3.6-5.2 N CHLORIDE (test code = CL) 101 mmol/l 98.0-107.0 N CARBON DIOXIDE (test code = CO2) 23.1 mmol/l 21.0-33.0 N ANION GAP (test code = GAP) 15.0 0-20 N GLUCOSE (test code = GLU) 106 mg/dl 70.0-110.0 N BLOOD UREA NITROGEN (test code = 17 mg/dl 7.0-18.0 N BUN) CREATININE (test code = CREAT) 0.77 mg/dL 0.60-1.30 N GFR NON BLACK (test code = 85 mL/min 95-105 L GFRNONBLACK) GFR BLACK (test code = GFRBLACK) 103 mL/min 115-127 L CALCIUM (test code = CA) 9.7 mg/dl 8.0-10.5 N CBC W/AUTO [id number] 07:24:00 Test Item Value Reference Range Interpretation Comments WHITE BLOOD CELL (test code = 4.8 K/mm3 4.5-11.0 N WBC) RED BLOOD CELL (test code = 4.30 M/mm3 3.80-5.20 N RBC) HEMOGLOBIN (test code = HGB) 12.4 gm/dL 12.0-16.0 N HEMATOCRIT (test code = HCT) 39.1 % 36.0-48.0 N MEAN CELL VOLUME (test code = 90.9 UM3 82.0-99.0 N MCV) MEAN CELL HGB (test code = MCH) 28.8 UUG 25.5-32.5 N MEAN CELL HGB CONCETRATION 31.7 gm/dL 29.0-35.5 N (test code = MCHC) RED CELL DISTRIBUTION WIDTH 13.5 % 11.5-15.0 N (test code = RDW) RED CELL DISTRIBUTION WIDTH SD 45.1 fL 34.8-50.2 N (test code = RDW-SD) PLATELET COUNT (test code = 200 K/mm3 150-400 N PLT) MEAN PLATELET VOLUME (test code 12.0 fl 7.4-10.4 H = MPV) NEUTROPHIL % (test code = NT%) 43.8 % 49.0-76.0 L IMMATURE GRANULOCYTE % (test 0.4 % 0.0-0.4 N code = IG%) LYMPHOCYTE % (test code = LY%) 47.1 % 23.0-38.0 H MONOCYTE % (test code = MO%) 6.6 % 1.0-10.0 N EOSINOPHIL % (test code = EO%) 1.7 % 1.0-5.0 N BASOPHIL % (test code = BA%) 0.4 % 0.0-1.0 N NUCLEATED RBC % (test code = 0.0 % 0.0-0.1 N NRBC%) NEUTROPHIL # (test code = NT#) 2.1 K/mm3 2.4-6.3 L IMMATURE GRANULOCYTE # (test 0.02 x10 3/uL 0.00-0.07 N code = IG#) LYMPHOCYTE # (test code = LY#) 2.3 K/mm3 1.2-4.0 N MONOCYTE # (test code = MO#) 0.3 K/mm3 0.0-0.6 N EOSINOPHIL # (test code = EO#) 0.1 K/MM3 0.0-0.7 N BASOPHIL # (test code = BA#) 0.0 K/mm3 0.0-0.2 N NUCLEATED RBC # (test code = 0.00 X10 3uL 0.00-0.01 N NRBC#) [id number] 03:41:00 Test Item Value Reference Range Interpretation Comments MAGNESIUM (test code = MAG) 1.9 mg/dl 1.8-2.4 N BASIC METABOLIC [id number] 03:40:00 Test Item Value Reference Range Interpretation Comments SODIUM (test code = NA) 136 mmol/l 134.0-147.0 N POTASSIUM (test code = K) 4.1 mmol/L 3.6-5.2 N CHLORIDE (test code = CL) 102 mmol/l 98.0-107.0 N CARBON DIOXIDE (test code = CO2) 24.1 mmol/l 21.0-33.0 N ANION GAP (test code = GAP) 14.0 0-20 N GLUCOSE (test code = GLU) 100 mg/dl 70.0-110.0 N BLOOD UREA NITROGEN (test code = 22 mg/dl 7.0-18.0 H BUN) CREATININE (test code = CREAT) 0.93 mg/dL 0.60-1.30 N GFR NON BLACK (test code = 69 mL/min 95-105 L GFRNONBLACK) GFR BLACK (test code = GFRBLACK) 83 mL/min 115-127 L CALCIUM (test code = CA) 9.2 mg/dl 8.0-10.5 N CBC W/AUTO [id number] 03:22:00 Test Item Value Reference Range Interpretation Comments WHITE BLOOD CELL (test code = 4.8 K/mm3 4.5-11.0 N WBC) RED BLOOD CELL (test code = 4.23 M/mm3 3.80-5.20 N RBC) HEMOGLOBIN (test code = HGB) 12.3 gm/dL 12.0-16.0 N HEMATOCRIT (test code = HCT) 38.0 % 36.0-48.0 N MEAN CELL VOLUME (test code = 89.8 UM3 82.0-99.0 MCV) MEAN CELL HGB (test code = MCH) 29.1 UUG 25.5-32.5 N MEAN CELL HGB CONCETRATION 32.4 gm/dL 29.0-35.5 N (test code = MCHC) RED CELL DISTRIBUTION WIDTH 13.7 % 11.5-15.0 N (test code = RDW) RED CELL DISTRIBUTION WIDTH SD 45.6 fL 34.8-50.2 N (test code = RDW-SD) PLATELET COUNT (test code = 204 K/mm3 150-400 N PLT) MEAN PLATELET VOLUME (test code 11.9 fl 7.4-10.4 H = MPV) NEUTROPHIL % (test code = NT%) 34.2 % 49.0-76.0 L IMMATURE GRANULOCYTE % (test 0.0 % 0.0-0.4 N code = IG%) LYMPHOCYTE % (test code = LY%) 56.5 % 23.0-38.0 H MONOCYTE % (test code = MO%) 6.2 % 1.0-10.0 N EOSINOPHIL % (test code = EO%) 2.7 % 1.0-5.0 N BASOPHIL % (test code = BA%) 0.4 % 0.0-1.0 N NUCLEATED RBC % (test code = 0.0 % 0.0-0.1 N NRBC%) NEUTROPHIL # (test code = NT#) 1.6 K/mm3 2.4-6.3 L IMMATURE GRANULOCYTE # (test 0.00 x10 3/uL 0.00-0.07 N code = IG#) LYMPHOCYTE # (test code = LY#) 2.7 K/mm3 1.2-4.0 N MONOCYTE # (test code = MO#) 0.3 K/mm3 0.0-0.6 N EOSINOPHIL # (test code = EO#) 0.1 K/MM3 0.0-0.7 N BASOPHIL # (test code = BA#) 0.0 K/mm3 0.0-0.2 N NUCLEATED RBC # (test code = 0.00 X10 3uL 0.00-0.01 N NRBC#) LIPID PROFILE (CORONARY RISK)2020-10-15 23:15:00 Test Item Value Reference Range Interpretation Comments TRIGLYCERIDES (test code = TRIG) 349 mg/dl 40.0-150.0 H CHOLESTEROL (test code = CHOL) 217 mg/dl 0.0-200.0 H CHOLESTEROL/HDL RATIO (test code = 9.0 RATIO CHOLHDL) HDL CHOLESTEROL (test code = HDL) 24 mg/dl 30.0-60.0 L LIPOPROTEIN LDL (test code = LDL) 137 mg/dl 70-130 H CREATINE KINASE (CK)2020-10-15 23:15:00 Test Item Value Reference Range Interpretation Comments CREATINE KINASE (CK) (test code = 94 Units/L 21-215 N CK) VITAMIN [id number] 23:15:00 Test Item Value Reference Range Interpretation Comments VITAMIN B12 (test code = VITB12) 482 pg/mL 193-986 N T3 [id number] 23:15:00 Test Item Value Reference Range Interpretation Comments T3 FREE (test code = T3F) pg/mL 2.0-4.4 T3 [id number] 23:15:00 Test Item Value Reference Range Interpretation Comments T3 REVERSE (test code = T3REV) T4 [id number] 23:15:00 Test Item Value Reference Range Interpretation Comments T4 FREE (test code = T4F) 1.15 ng/dl 0.82-1.77 N VITAMIN D 1,43-[id number] 23:15:00 Test Item Value Reference Range Interpretation Comments VITAMIN D 1,25-DIHYDROXY (test code = pg/mL 19.9-79.3 [id number]) LIPID PROFILE (CORONARY RISK)2020-10-15 15:36:00 Test Item Value Reference Range Interpretation Comments TRIGLYCERIDES (test code = TRIG) 349 mg/dl 40.0-150.0 H CHOLESTEROL (test code = CHOL) 217 mg/dl 0.0-200.0 H CHOLESTEROL/HDL RATIO (test code = 9.0 RATIO CHOLHDL) HDL CHOLESTEROL (test code = HDL) 24 mg/dl 30.0-60.0 L LIPOPROTEIN LDL (test code = LDL) 137 mg/dl 70-130 H CREATINE KINASE (CK)2020-10-15 15:36:00 Test Item Value Reference Range Interpretation Comments CREATINE KINASE (CK) (test code = 94 Units/L 21-215 N CK) VITAMIN [id number] 15:36:00 Test Item Value Reference Range Interpretation Comments VITAMIN B12 (test code = VITB12) 482 pg/mL 193-986 N T3 [id number] 15:36:00 Test Item Value Reference Range Interpretation Comments T3 FREE (test code = T3F) pg/mL 2.0-4.4 T3 [id number] 15:36:00 Test Item Value Reference Range Interpretation Comments T3 REVERSE (test code = T3REV) VITAMIN D 1,66-[id number] 15:36:00 Test Item Value Reference Range Interpretation Comments VITAMIN D 1,25-DIHYDROXY (test code = pg/mL 19.9-79.3 [id number]) - US HEAD AND [id number] 13:23:00 [facility] 1975 Sex: F FAX: Jonathon Argueta [phone] [place]: St: ADM FAX: Cleveland Paulino Jr [phone] FAX: Federico Javed [phone] Name: STACEY TEJEDA [facility] : 1975 Age/S: 44/F [address] [facility] Unit#: [id number] Loc: [place], [place] Phys: Federico Javed [id number] Acct: [id number] Dis Date: Status: ADM IN PHONE #: [phone] Exam Date: 10/15/2020 1305 FAX #: [phone] Reason: diffuse thryomegaly EXAMS: CPT CODE: [id number] US HEAD AND NECK 33096 Dictation location: H37. THYROID ULTRASOUND HISTORY: diffuse thyromegaly FINDINGS: The isthmus measures 6 mm in thickness. The right thyroid lobe measures 7.2 x 2.4 x 3.1 cm. The left thyroid lobe measures 7.2 x 2.2 x 2.8 cm. The thyroid is mildly diffusely heterogenous. A hypoechoic nodules seen inferiorly along the right thyroid lobemeasuring 2.6 x 1.4 x 1.8 cm and is wider than tall. A single nodule seen in the left thyroid lobe measuring 1 x 0.8 x 1.1 cm and is also wider than tall. IMPRESSION: Diffusely enlarged thyroid with bilateral thyroid nodules. The largest located in the right measuring up to 2.6 cm TI-RADS 4. Recommend outpatient FNA based on size. at 1323 Reported and signed by: Mary Gutierrez M.D. CC: Jonathon De Jesus MD; Cleveland Bass Jr, MD; Federico PRESLEY Technologist: HUYEN MENDOZA Trnscrd Date/Time/By: 10/15/2020 (3593) : By: [email or web address] PAGE 1 Signed Report FAX: Jonathon Walton [phone] [place]: St: [facility] FAX: Cleveland Paulino Jr [phone] FAX: Federico Javed [phone] Name: STACEY TEJEDA [facility] : 1975 Age/S: 44/F [address] [facility] Unit #: [id number] Loc: [place], [place] Phys: Federico Javed [id number] Acct: [id number] Dis Date: Status: ADM IN PHONE #: [phone] Exam Date: 0 10/15/2020 1305 FAX #: [phone] Reason: diffuse thryomegaly EXAMS: CPT CODE: [id number] HEAD AND NECK 68743 (Continued) Orig Print D/T: S: 10/15/2020 (1327) PAGE 2 Signed ReportBASIC METABOLIC [id number] 04:55:00 Test Item Value Reference Range Interpretation Comments SODIUM (test code = NA) 136 mmol/l 134.0-147.0 N POTASSIUM (test code = K) 4.7 mmol/L 3.6-5.2 N CHLORIDE (test code = CL) 105 mmol/l 98.0-107.0 N CARBON DIOXIDE (test code = CO2) 22.3 mmol/l 21.0-33.0 N ANION GAP (test code = GAP) 13.4 0-20 N GLUCOSE (test code = GLU) 126 mg/dl 70.0-110.0 H BLOOD UREA NITROGEN (test code = 37 mg/dl 7.0-18.0 H BUN) CREATININE (test code = CREAT) 1.81 mg/dL 0.60-1.30 H GFR NON BLACK (test code = 32 mL/min 95-105 L GFRNONBLACK) GFR BLACK (test code = GFRBLACK) 39 mL/min 115-127 L CALCIUM (test code = CA) 9.1 mg/dl 8.0-10.5 N CREATINE KINASE (CK)2020-10-15 00:35:00 Test Item Value Reference Range Interpretation Comments CREATINE KINASE (CK) (test code = 161 Units/L 21-215 N CK) Coronavirus 2019 nCoV [id number] 21:42:00 Test Item Value Reference Range Interpretation Comments Coronavirus 2019 Negative NEGATIVE Negative re sults should be nCoV Bedside (test treated a s presumptive and code = ifinconsistent with [id number]) clinical signs and symptoms, or ne cessaryfor patient managem ent, should be tested with an alternativemole cular assay. Negative result s do not preclude MGBH-StI-6lsvik tion and should not be u sed as the sole basis forp atient management deci sions. Negative result s should beconsidered in the context of a patient's recent exposures,histo ry, presence of clinical sig ns and symptoms consis tentwith COVID-19. ARTERIAL BLOOD [id number] 21:27:00 Test Item Value Reference Range Interpretation Comments ARTERIAL BLOOD GAS PH 7.362 7.350-7.450 N (test code = PHA) ARTERIAL BLOOD GAS PCO2 27.4 mmHg 35.0-45.0 L (test code = PCO2A) ARTERIAL BLOOD GAS PO2 96.6 mmHg >80.0 (test code = PO2A) BICARBONATE TOTAL HCO3 15.2 MMOL/L 22.0-26.0 L (test code = HCO3) BASE EXCESS (test code = -8.8 MMOL/L -4.0-4.0 L GERONIMO) ABG O2 SATURATION (test 97.0 % 92.0-99.0 N code = SATA) FIO2 (test code = FIO2A) 21.0 ABG SITE (test code = RR SITEA) ALLENS TEST (test code = Yes ALLENS) TOTAL HGB (test code = 11.9 g/dL 12.0-16.0 L THB) CARBOXYHEMOGLOBIN (test 2.7 % THgb 0.0-1.5 H code = HOHGBT) METHEMOGLOBIN (test code = 0.3 % 0.0-1.5 N N ORMAL METHGB) <2.0POTENTIALLY TOXIC >20.0 PaO2/[id number] 21:27:00 Test Item Value Reference Range Interpretation Comments PaO2/FiO2 (test code = [id number]) mm/Hg ARTERIAL BLOOD [id number] 21:27:00 Test Item Value Reference Range Interpretation Comments ARTERIAL BLOOD GAS PH 7.362 7.350-7.450 N (test code = PHA) ARTERIAL BLOOD GAS PCO2 27.4 mmHg 35.0-45.0 L (test code = PCO2A) ARTERIAL BLOOD GAS PO2 96.6 mmHg >80.0 (test code = PO2A) BICARBONATE TOTAL HCO3 15.2 MMOL/L 22.0-26.0 L (test code = HCO3) BASE EXCESS (test code = -8.8 MMOL/L -4.0-4.0 L GERONIMO) ABG O2 SATURATION (test 97.0 % 92.0-99.0 N code = SATA) FIO2 (test code = FIO2A) 21.0 ABG SITE (test code = RR SITEA) ALLENS TEST (test code = Yes ALLENS) TOTAL HGB (test code = 11.9 g/dL 12.0-16.0 L THB) CARBOXYHEMOGLOBIN (test 2.7 % THgb 0.0-1.5 H code = HOHGBT) METHEMOGLOBIN (test code = 0.3 % 0.0-1.5 N N ORMAL METHGB) <2.0POTENTIALLY TOXIC >20.0 PaO2/[id number] 21:27:00 Test Item Value Reference Range Interpretation Comments PaO2/FiO2 (test code = [id number]) 460.00 mm/Hg BASIC METABOLIC [id number] 21:22:00 Test Item Value Reference Range Interpretation Comments SODIUM (test code = 127 mmol/l 134.0-147.0 L NA) POTASSIUM (test code = 5.6 mmol/L 3.6-5.2 H IS SA MPLE HEMOLYSED? K) NO CHLORIDE (test code = 97 mmol/l 98.0-107.0 L CL) CARBON DIOXIDE (test 17.9 mmol/l 21.0-33.0 L code = CO2) ANION GAP (test code = 17.7 0-20 N GAP) GLUCOSE (test code = 110 mg/dl 70.0-110.0 N GLU) BLOOD UREA NITROGEN 46 mg/dl 7.0-18.0 H (test code = BUN) CREATININE (test code 2.93 mg/dL 0.60-1.30 H = CREAT) GFR NON BLACK (test 18 mL/min 95-105 L code = GFRNONBLACK) GFR BLACK (test code = 22 mL/min 115-127 L GFRBLACK) CALCIUM (test code = 9.2 mg/dl 8.0-10.5 N CA) Specimen comments: .Specimen comments: Clean CatchHEPATIC FUNCTION PANEL A 2020-10-14 21:22:00 Test Item Value Reference Range Interpretation Comments TOTAL PROTEIN (test code = PROT) 7.6 GM/DL 6.0-8.1 N ALBUMIN (test code = ALB) 3.6 gm/dL 3.2-4.7 N BILIRUBIN TOTAL (test code = BILT) 0.4 mg/dl 0.0-1.0 N BILIRUBIN DIRECT (test code = 0.1 mg/dl 0.0-0.3 N BILD) SGOT/AST (test code = AST) 67 Units/L 15-37 H SGPT/ALT (test code = ALT) 71 Units/L 12.0-78.0 N ALKALINE PHOSPHATASE TOTAL (test 61 Units/L 50.0-136.0 N code = ALKP) Specimen comments: .Specimen comments: Clean [id number] 21:22:00 Test Item Value Reference Range Interpretation Comments LIPASE (test code = LIP) 180 Units/L 65.0-230.0 N Specimen comments: .Specimen comments: Clean CatchHCG SERUM [id number] 21:22:00 Test Item Value Reference Range Interpretation Comments HCG SERUM QUAL (test code = HCGQL) NEGATIVE NEGATIVE Specimen comments: .Specimen comments: Clean CatchTHYROID STIMULATING HORMONE 2020-10-14 21:22:00 Test Item Value Reference Range Interpretation Comments THYROID STIMULATING 0.10 IU/ML 0.47-5.01 L Result i s in HORMONE (test code = Interna tional TSH) Units/millilite r Specimen comments: .Specimen comments: Clean [id number] 21:22:00 Test Item Value Reference Range Interpretation Comments ACETAMINOPHEN (test <2.0 mcg/ml 10.0-30.0 L Result i s in code = ACET) Microgram per milliliter. Specimen comments: .Specimen comments: Clean [id number] 21:22:00 Test Item Value Reference Range Interpretation Comments SALICYLATE (test code = ISIDRA) 2.9 mg/dl 2.8-20.0 N Specimen comments: .Specimen comments: Clean [id number] 21:22:00 Test Item Value Reference Range Interpretation Comments ALCOHOL (test code 0.00 gm/dL 0.00-0.00 N ETHYL ALC OHOL VALUES - = ALC) INTERPRETATION: 0.050 GM/DL - NOT INT OXICATED 0.100 GM/DL - INTOXICATED 0.3 50-0.450 GM/DL - SEVEREL Y INTOXICATED 0.5 50 GM/DL- FATAL INTOXICAT ION Specimen comments: .Specimen comments: Clean CatchBASIC METABOLIC PANEL 2020-10-14 21:18:00 Test Item Value Reference Range Interpretation Comments SODIUM (test code = 127 mmol/l 134.0-147.0 L NA) POTASSIUM (test code = 5.6 mmol/L 3.6-5.2 H IS SA MPLE HEMOLYSED? K) NO CHLORIDE (test code = 97 mmol/l 98.0-107.0 L CL) CARBON DIOXIDE (test 17.9 mmol/l 21.0-33.0 L code = CO2) ANION GAP (test code = 17.7 0-20 N GAP) GLUCOSE (test code = 110 mg/dl 70.0-110.0 N GLU) BLOOD UREA NITROGEN 46 mg/dl 7.0-18.0 H (test code = BUN) CREATININE (test code 2.93 mg/dL 0.60-1.30 H = CREAT) GFR NON BLACK (test 18 mL/min 95-105 L code = GFRNONBLACK) GFR BLACK (test code = 22 mL/min 115-127 L GFRBLACK) CALCIUM (test code = 9.2 mg/dl 8.0-10.5 N CA) Specimen comments: .Specimen comments: Clean CatchHEPATIC FUNCTION PANEL A 2020-10-14 21:18:00 Test Item Value Reference Range Interpretation Comments TOTAL PROTEIN (test code = PROT) 7.6 GM/DL 6.0-8.1 N ALBUMIN (test code = ALB) 3.6 gm/dL 3.2-4.7 N BILIRUBIN TOTAL (test code = BILT) 0.4 mg/dl 0.0-1.0 N BILIRUBIN DIRECT (test code = 0.1 mg/dl 0.0-0.3 N BILD) SGOT/AST (test code = AST) 67 Units/L 15-37 H SGPT/ALT (test code = ALT) 71 Units/L 12.0-78.0 N ALKALINE PHOSPHATASE TOTAL (test 61 Units/L 50.0-136.0 N code = ALKP) Specimen comments: .Specimen comments: Clean [id number] 21:18:00 Test Item Value Reference Range Interpretation Comments LIPASE (test code = LIP) 180 Units/L 65.0-230.0 N Specimen comments: .Specimen comments: Clean CatchHCG SERUM [id number] 21:18:00 Test Item Value Reference Range Interpretation Comments HCG SERUM QUAL (test code = HCGQL) NEGATIVE NEGATIVE Specimen comments: .Specimen comments: Clean CatchTHYROID STIMULATING HORMONE 2020-10-14 21:18:00 Test Item Value Reference Range Interpretation Comments THYROID STIMULATING HORMONE (test code IU/ML 0.47-5.01 = TSH) Specimen comments: .Specimen comments: Clean [id number] 21:18:00 Test Item Value Reference Range Interpretation Comments ACETAMINOPHEN (test <2.0 mcg/ml 10.0-30.0 L Result i s in code = ACET) Microgram per milliliter. Specimen comments: .Specimen comments: Clean [id number] 21:18:00 Test Item Value Reference Range Interpretation Comments SALICYLATE (test code = ISIDRA) 2.9 mg/dl 2.8-20.0 N Specimen comments: .Specimen comments: Clean [id number] 21:18:00 Test Item Value Reference Range Interpretation Comments ALCOHOL (test code 0.00 gm/dL 0.00-0.00 N ETHYL ALC OHOL VALUES - = ALC) INTERPRETATION: 0.050 GM/DL - NOT INT OXICATED 0.100 GM/DL - INTOXICATED 0.3 50-0.450 GM/DL - SEVEREL Y INTOXICATED 0.5 50 GM/DL- FATAL INTOXICAT ION Specimen comments: .Specimen comments: Clean Catch- CT C-SPINE W/O CONT 2020-10-14 21:09:00 [facility] 1975 Sex: F FAX: Mike Robison MD [place]: EM St: REG Name: STACEY TEJEDA [facility] : 1975 Age/S: 44/F [address] Unit: [id number] Loc: [place], [place] Phys: [place] [id number] Acct: [id number] Dis Date: Status: REG ER PHONE #: [phone] Exam Date: 10/14/20202054 FAX #: [phone] Reason: AMS EXAMS: CPT CODE: [id number] CT C-SPINE W/O CONT 20677 Location H 31 NON-CONTRAST CT BRAIN NONCONTRASTCT CERVICAL SPINE History: Altered mental status COMPARISON: CT brain dated 03/21/2018 TECHNIQUE : Serial axial CT of the brain obtained without the use of intravenous contrast in brain and bone window settings with coronal and sagittal reconstructions. Axial CT of the cervical spine provided in bone windows with coronal and sagittal reconstruction. One or more of the following dose reduction techniques were used: Automated exposure control, adjustment of the mA or KV according to patient size, use ofIterative reconstruction technique. DLP Brain: 850.35 mGy-cm; C-spine: 426.36mGy- cm FINDINGS: Brain: There is no evidence of acute cerebrovascular injury, mass effect or midline shift. No evidence of subarachnoid hemorrhage, intracerebral hematoma, or extraaxial fluid collections. Basal cisterns are preserved. Ruelas-white differentiation is maintained. Osseous structures are unremarkable. The orbits a ppear normal. The visible paranasal sinuses and mastoid air spaces are clear. C- spine: Alignment isnormal. Vertebral body height is maintained. Mild pre- existing disc space narrowing with small posterior disc/osteophyte complex as well as uncovertebral spurring at C5-C6 resulting in mild bilateral foraminal stenosis. Disc space height otherwise maintained. Maintained. The craniocervical junction and cervicothoracic junctions are normal.The prevertebral soft tissues show no focal abnormality. Diffuse thyromegaly is noted. IMPRESSION: 1. No evidence of acute intracranial process. 2. No evidence ofacute fracture or subluxation. Mild disc disease at C5-C6. PAGE 1 Signed Report (CONTINUED) FAX: Mike Robison MD [place]: EM St: REG --------- Name: STACEY TEJEDA [facility] : 1975 Age/S: 44/F [id number] Loc: [place], [place]: [place] [address] Acct: [id number] Dis Date: Status: REG ER PHONE #: [phone] Exam Date: 10/14/20202054 FAX #: [phone] Reason: AMS EXAMS: CPT CODE: [id number] CT C-SPINE W/O CONT 45701 (Continued) 3. Diffuse thyromegaly is incidentally noted. Correlate with LFTs. at 210 Reported and signed by: Rosanna Chavez MD CC: Mike Robison MD Technologist: AYAAN BUTT; AUBREY WONG Trnscrd Dt/Tm: 10/14/2020 (2108) t.[email or web address] Orig Print D/T: S: 10/14/2020 (3 PAGE 2 Signed Report- CT HEAD/BRAIN W/O [id number] 21:09:00[facility] : 1975 Sex: F FAX: Mike Robison MD [place]: St: REG Name: STACEY TEJEDA [facility] : 1975 Age/S: 44/F [address] [facility] Unit: [id number] Loc: [place], [place]: [place] [address] Acct: [id number] Dis Date: Status: REG ER PHONE #: [phone] Exam Date: 10/14/20202054 FAX #: [phone] Reason: Altered Mental Status EXAMS: CPT CODE: [id number] CT HEAD/BRAIN W/O CONT 36767 Location H 31 NON-CONTRAST CT BRAIN NONCONTRAST CT CERVICAL SPINE History: Altered mental status COMPARISON: CT brain dated 03/21/2018 TECHNIQUE : Serial axial CT of the brain obtained without the use of intravenous contrast in brain and bone window settings with coronal and sagittal reconstructions. Axial CT of the cervical spine provided in bone windows with coronal and sagittal reconstruction. One or more of the following dose reduction techniques were used: Automated exposure control, adjustment of the mA or KV according to patient size, use of Iterative reconstruction technique. DLP Brain: 850.35 mGy-cm; C-spine: 426.36mGy-cm FINDINGS: Brain: There is no evidence of acute cerebrovascular injury, mass effect or midline shift. No evidence of subarachnoid hemorrhage, intracerebral hematoma, or extraaxial fluid collections. Basal cisterns are preserved. Ruelas- white differentiation is maintained. Osseous structures are unremarkable. The orbits appear normal. The visible paranasal sinuses and mastoid air spaces are clear. C-spine: Alignment is normal. Vertebral body height is maintained. Mild pre-existing disc space narrowing with small posterior disc/osteophyte complex as well as uncovertebral spurring at C5-C6 resulting in mild bilateral foraminal stenosis. Disc space height otherwise maintained. Maintained. The craniocervical junction and cervicothoracic junctions are normal.The prevertebral soft tissues show no focal abnormality. Diffuse thyromegaly is noted. IMPRESSION: 1. No evidence of acute intracranial process.2. No evidence of acute fracture or subluxation. Mild disc disease at C5-C6. PAGE 1 Signed Report (CONTINUED) FAX: Mike Robison MD [place]: St: REG Name: STACEY TEJEDA [facility] : 1975 Age/S: 44/F [address] [facility] Unit: [id number] Loc: [place], [place]: [place] [address] Acct: [id number] Dis Date: Status: REG ER PHONE #: [phone] Exam Date: 10/14/20202054 FAX #: [phone] Reason: Altered Mental Status EXAMS: CPT CODE: [id number] CT HEAD/BRAIN W/O CONT 40145 (Continued)3. Diffuse thyromegaly is incidentally noted. Correlate with LFTs. at 2108 Reported and signed by: Rosanna Chavez MD CC: Mike Robison MD Technologist: AYAAN BUTT; AUBREY WONG Trnscrd Dt/Tm: 10/14/2020 (2108) aric [id number] Orig Print D/T: S: 10/14/2020 (2112 PAGE 2 Signed ReportBASIC METABOLIC [id number] 21:06:00 Test Item Value Reference Range Interpretation Comments SODIUM (test code = NA) mmol/l 134.0-147.0 POTASSIUM (test code = K) mmol/L 3.6-5.2 CHLORIDE (test code = CL) mmol/l 98.0-107.0 CARBON DIOXIDE (test code = CO2) mmol/l 21.0-33.0 ANION GAP (test code = GAP) 0-20 GLUCOSE (test code = GLU) mg/dl 70.0-110.0 BLOOD UREA NITROGEN (test code = BUN) mg/dl 7.0-18.0 CREATININE (test code = CREAT) mg/dL 0.60-1.30 GFR NON BLACK (test code = mL/min 95-105 GFRNONBLACK) GFR BLACK (test code = GFRBLACK) mL/min 115-127 CALCIUM (test code = CA) mg/dl 8.0-10.5 Specimen comments: .Specimen comments: Clean CatchHEPATIC FUNCTION PANEL A 2020-10-14 21:06:00 Test Item Value Reference Range Interpretation Comments TOTAL PROTEIN (test code = PROT) gm/dL 6.4-8.2 ALBUMIN (test code = ALB) gm/dl 3.2-4.7 BILIRUBIN TOTAL (test code = BILT) mg/dl 0.0-1.0 BILIRUBIN DIRECT (test code = BILD) mg/dl 0.0-0.3 SGOT/AST (test code = AST) Units/L 15-37 SGPT/ALT (test code = ALT) Units/L 12.0-78.0 ALKALINE PHOSPHATASE TOTAL (test Units/L 50.0-136.0 code = ALKP) Specimen comments: .Specimen comments: Clean [id number] 21:06:00 Test Item Value Reference Range Interpretation Comments LIPASE (test code = LIP) Units/L 65.0-230.0 Specimen comments: .Specimen comments: Clean CatchHCG SERUM [id number] 21:06:00 Test Item Value Reference Range Interpretation Comments HCG SERUM QUAL (test code = HCGQL) NEGATIVE NEGATIVE Specimen comments: .Specimen comments: Clean CatchTHYROID STIMULATING HORMONE 2020-10-14 21:06:00 Test Item Value Reference Range Interpretation Comments THYROID STIMULATING HORMONE (test code IU/ML 0.47-5.01 = TSH) Specimen comments: .Specimen comments: Clean [id number] 21:06:00 Test Item Value Reference Range Interpretation Comments ACETAMINOPHEN (test code = ACET) mcg/ml 10.0-30.0 Specimen comments: .Specimen comments: Clean [id number] 21:06:00 Test Item Value Reference Range Interpretation Comments SALICYLATE (test code = ISIDRA) mg/dl 2.8-20.0 Specimen comments: .Specimen comments: Clean [id number] 21:06:00 Test Item Value Reference Range Interpretation Comments ALCOHOL (test code = ALC) gm/dL 0.00-0.00 Specimen comments: .Specimen comments: Clean Catch- XR CHEST 1 [id number] 21:06:00[facility] : 1975 Sex: F FAX: Mike Benton MD [place]: St: REG Name: STACEY TEJEDA [facility] : 1975 Age/S: 44/F [address] [facility] [employer] [facility] Unit #: [id number] Loc: [place], [place]: [place] [address] Acct: [id number] Dis Date: Status: REG ER PHONE #: [phone] Exam Date: 10/14/20202103 FAX #: [phone] Reason: Altered Mental Status EXAMS: CPT CODE: [id number] XR CHEST 1 V 53938 EXAM: - XR CHEST 1 V HISTORY: AMS. COMPARISON: March 31, 2018. FINDINGS: Single AP view of the chest is provided. Heart size and vascularity are within normal limits. Limited exam with chin overlying the left apex. There is no evidenceof a focal consolidation. There is no pleural effusion or pneumothorax. There is no definite acute o sseous abnormality. IMPRESSION: No radiographic evidence of acute cardiopulmonary process. Limited exam. at 2106 Reported and signed by: Raheem Keith M.D. CC: Mike Robison MD Technologist: AUBREY WONG Trnscrd Date/Time/By: (2105) : By: [email or web address] PAGE 1 Signed Report FAX: Mike Robison MD [place]: St: REG------- Name: STACEY TEJEDA [facility] : 1975 Age/S: 44/F [address] [facility] Unit #: [id number] Loc: [place], [place]: [place] [address] Acct: [id number] Dis Date: Status: REG ER PHONE #: [phone] Exam Date: 10/14/20202103 FAX #: [phone] Reason: Altered Mental Status EXAMS: CPT CODE: [id number] XR CHEST 1 V 02441 (Continued) Orig Print D/T: S: 10/14/2020 (2108) PAGE 2 Signed [id number] 21:03:00 Test Item Value Reference Range Interpretation Comments AMMONIA (test code = AMM) 19.0 MCMOL/L 11.0-32.0 N Specimen comments: .PROTHROMBIN [id number] 20:56:00 Test Item Value Reference Range Interpretation Comments PROTHROMBIN TIME 12.8 SECONDS 9.9-12.8 N PATIENT (test code = PTP) INTERNATIONAL NORMAL 1.1 0.89-1.14 N THE INR IS TO BE USED RATIO (test code = ONLY FOR MONITORING INR) ORAL ANTICOAGULANTTH ERAPY. THE FOLLOWING A RE SUGGESTED RANGE S FROM [facility] LEGE OF CHEST PHYSICIANS:JULISSA CATION INR VALUEPROPHY LAXIS OF VENOUS THROM BOSIS (ORTHOPEDIC JAYSHREE BRENNA) 2.0 - 3.0PROPHY LAXIS OF VENOUS THROM BOSIS (OTHER THAN HIG H-RISK SURGERY) 2.0 - 3.0TREATMENT OF DEEP VEIN THROMBOSIS OR PULMONARY EMBOL ISM 2.0 - 3.0PREVENTION OF SYSTEMIC EMBOLI SM TISSUE HEART VA LVES 2.0 - 3.0 ACUTE MYOCARDIAL INFA RCTION (TO PREVENT SYS TEMIC EMBOLISM) 2.0 - 3.0 ACUTE MYOCARDIA L INFARCTION (TO PREVENT RECURRENT INFAR CT) 2.5 - 3.0 VALVULAR HEART DISEASE 2.0 - 3 .0 ATRIAL FIBRILAT ION 2.0 - 3.0BILEAFLET MECHANICAL VALV E IN AORTIC POSITION 2.0 - 3.0MECHANICAL PROSTHETIC VALV ES (HIGH RISK) 2.5 - 3.5PRESENCE OF LUPUS ANTICOAGULANT O R ANTIPHOSPHOLIPI D ANTIBODIES 2.5 - 3.5 Specimen comments: .Is patient on anticoagulants? NTHROMBOPLASTIN TIME PARTIAL 2020-10-14 20:56:00 Test Item Value Reference Range Interpretation Comments THROMBOPLASTIN TIME 34.50 SECONDS 25.86-36.07 N [place] [facility] PARTIAL (test code = Therape utic Range - PTT) APTT of 55.8-85 .4 secondscorrelat es with plasma heparin concentration o f 0.2-0.4 u/mL Ne w range effective - Specimen comments: .Is patient on anticoagulants? NDRUGS OF ABUSE SCREEN UR 2020-10-14 20:54:00 Test Item Value Reference Interpretation Comments Range URN COCAINE (test NEGATIVE NEGATIVE Cocaine cu t-off code = COCAURN) concentratio n: 300 ng/mL URN CANNABINOIDS POSITIVE NEGATIVE A UNCONFIRMED INITIAL (test code = SCREENING ONLY; SUGGEST CANNABURN) ADDITIONALCONFI RMATORY TESTING.Cannabi noids cut-off concent ration: 50 ng/mL URN AMPHETAMINE NEGATIVE NEGATIVE Amphetamine cut-off (test code = concentration: 1000 ng/mL AMPHETURN) URN BARBITURATE NEGATIVE NEGATIVE Barbiturate cut-off (test code = concentration: 200 ng/mL BARBITURN) URN BENZODIAZEPINE POSITIVE NEGATIVE A UNCONFIRM ED INITIAL (test code = SCREENING ONLY; SUGGEST BENZOURN) ADDITIONALCONFI RMATORY TESTING.Benzodi azepine cut-off concent ration: 200 ng/mL URN OPIATES (test POSITIVE NEGATIVE A UNCONFIRME D INITIAL code = OPIATURN) SCREENING O NLY; SUGGEST ADDITIONALCONFI RMATORY TESTING.Opiates cut-off concentration: 200 ng/mL URN PHENCYCLIDINE NEGATIVE NEGATIVE Phencyclid ine(PCP) cut-off (PCP) (test code = concentra tion: 25 ng/ml PHENCURN) URN METHADONE (test NEGATIVE NEGATIVE code = METHAURN) Specimen comments: .CBC W/AUTO [id number] 20:49:00 Test Item Value Reference Range Interpretation Comments WHITE BLOOD CELL (test code = 8.6 K/mm3 4.5-11.0 N WBC) RED BLOOD CELL (test code = 4.40 M/mm3 3.80-5.20 N RBC) HEMOGLOBIN (test code = HGB) 12.9 gm/dL 12.0-16.0 N HEMATOCRIT (test code = HCT) 41.3 % 36.0-48.0 N MEAN CELL VOLUME (test code = 93.9 UM3 82.0-99.0 N MCV) MEAN CELL HGB (test code = MCH) 29.3 UUG 25.5-32.5 N MEAN CELL HGB CONCETRATION 31.2 gm/dL 29.0-35.5 N (test code = MCHC) RED CELL DISTRIBUTION WIDTH 13.4 % 11.5-15.0 N (test code = RDW) RED CELL DISTRIBUTION WIDTH SD 46.6 fL 34.8-50.2 N (test code = RDW-SD) PLATELET COUNT (test code = 232 K/mm3 150-400 N PLT) MEAN PLATELET VOLUME (test code 11.1 fl 7.4-10.4 H = MPV) NEUTROPHIL % (test code = NT%) 45.2 % 49.0-76.0 L IMMATURE GRANULOCYTE % (test 0.4 % 0.0-0.4 N code = IG%) LYMPHOCYTE % (test code = LY%) 48.1 % 23.0-38.0 H MONOCYTE % (test code = MO%) 4.8 % 1.0-10.0 N EOSINOPHIL % (test code = EO%) 1.3 % 1.0-5.0 N BASOPHIL % (test code = BA%) 0.2 % 0.0-1.0 N NUCLEATED RBC % (test code = 0.0 % 0.0-0.1 N NRBC%) NEUTROPHIL # (test code = NT#) 3.9 K/mm3 2.4-6.3 N IMMATURE GRANULOCYTE # (test 0.03 x10 3/uL 0.00-0.07 N code = IG#) LYMPHOCYTE # (test code = LY#) 4.1 K/mm3 1.2-4.0 H MONOCYTE # (test code = MO#) 0.4 K/mm3 0.0-0.6 N EOSINOPHIL # (test code = EO#) 0.1 K/MM3 0.0-0.7 N BASOPHIL # (test code = BA#) 0.0 K/mm3 0.0-0.2 N NUCLEATED RBC # (test code = 0.00 X10 3uL 0.00-0.01 N NRBC#) URINALYSIS [id number] 20:46:00 Test Item Value Reference Range Interpretation Comments UA COLOR (test code = DARK YELLOW COLU) UA APPEARANCE (test code CLDY = APPU) UA GLUCOSE DIPSTICK (test NORMAL mg/dl NORMAL code = DGLUU) UA BILIRUBIN DIPSTICK 6 mg/dL mg/dL NEGATIVE A (test code = BILU) UA KETONE DIPSTICK (test 5 mg/dl mg/dl NEGATIVE A code = KETU) UA SPECIFIC GRAVITY (test 1.025 1.000-1.030 code = SGU) UA BLOOD DIPSTICK (test NEGATIVE Jaskaran/micL NEGATIVE code = TAVIA) UA PH DIPSTICK (test code 5.0 5.0-9.0 = ZAIRA) UA PROTEIN DIPSTICK (test 30 mg/dl NEGATIVE A code = PROU) UA UROBILINIOGEN DIPSTICK 1.0 mg/dl mg/dl NORMAL A (test code = URO) UA NITRITE DIPSTICK (test NEGATIVE NEGATIVE code = ERNIE) UA LEUKOCYTE ESTERASE 25 Hi/micL Hi/micL NEGATIVE A DIPSTICK (test code = LEUU) UA WBC (test code = WBCU) 0-3 WBC/HPF NONE UA RBC (test code = RBCU) 0-2 RBC/HPF 0-3 UA EPITHELIAL CELLS (test 0-3 EPI/HPF 0-3 code = EPIU) UA BACTERIA (test code = FEW NONE BACU) UA MUCUS (test code = 1+ MUCU) UA AMORPHOUS SEDIMENT MOD NONE (test code = AMORU) Specimen comments: Clean CatchURINALYSIS [id number] 20:39:00 Test Item Value Reference Range Interpretation Comments UA COLOR (test code = DARK YELLOW COLU) UA APPEARANCE (test code CLDY = APPU) UA GLUCOSE DIPSTICK (test NORMAL mg/dl NORMAL code = DGLUU) UA BILIRUBIN DIPSTICK 6 mg/dL mg/dL NEGATIVE A (test code = BILU) UA KETONE DIPSTICK (test 5 mg/dl mg/dl NEGATIVE A code = KETU) UA SPECIFIC GRAVITY (test 1.025 1.000-1.030 code = SGU) UA BLOOD DIPSTICK (test NEGATIVE Jaskaran/micL NEGATIVE code = TAVIA) UA PH DIPSTICK (test code 5.0 5.0-9.0 = ZAIRA) UA PROTEIN DIPSTICK (test 30 mg/dl NEGATIVE A code = PROU) UA UROBILINIOGEN DIPSTICK 1.0 mg/dl mg/dl NORMAL A (test code = URO) UA NITRITE DIPSTICK (test NEGATIVE NEGATIVE code = ERNIE) UA LEUKOCYTE ESTERASE 25 Hi/micL Hi/micL NEGATIVE A DIPSTICK (test code = LEUU) UA WBC (test code = WBCU) WBC/HPF NONE UA RBC (test code = RBCU) RBC/HPF 0-3 UA EPITHELIAL CELLS (test EPI/HPF 0-3 code = EPIU) UA BACTERIA (test code = NONE BACU) Specimen comments: Clean Catch
[2022-09-27 08:42] LABS: Blood Gas Oxyhemoglobin 89.2 % (94-97); Blood O2 Saturation 92.1 % (92-98.5)
[2022-09-27] MEDS ORDERED: CEFTRIAXONE 1000 MG/VIAL ONE (08:47)
[2022-09-27] MEDS ORDERED: METHYLPREDNISOLONE 125 MG INJ ONE (08:47)
[2022-09-27] MEDS ORDERED: NA CHLORIDE 0.9% 250 ML ONE (08:48)
[2022-09-27] MEDS ORDERED: ALBUTEROL 2.5 MG/3 ML NEB SOL ONE ×3 (08:48→13:30)
[2022-09-27] MEDS ORDERED: NA CHLORIDE 0.9% 100 ML IV ONE (08:48)
[2022-09-27] MEDS ORDERED: AZITHROMYCIN 500 MG INJ IVPB ONE (08:48)
[2022-09-27] MEDS ORDERED: IPRATROPIUM BROM 0.5MG/2.5ML ONE ×2 (08:48→13:30)
[2022-09-27 08:50] LABS: Hematocrit 35.9 % (36.0-45.0); Lymphocytes % 11.9 % (15.3-44.8); MCV 86.3 fL (80-100); MPV 8.9 fL (7.6-11.3); RBC Red Blood Cell Count 4.16 M/uL (3.86-4.86)
[2022-09-27] MEDS ORDERED: NA CHLORIDE 0.9% 1,000 ML ONE (08:51)
[2022-09-27 08:53] LABS: Protime INR 1.17
[2022-09-27 09:09] LABS: Albumin 2.9 g/dL (3.4-5.0); Bilirubin Direct 0.2 mg/dL (0-0.2); Bilirubin Total 0.5 mg/dL (0.2-1.0); Magnesium 1.8 mg/dL (1.6-2.4); Protein, Total 8.3 g/dL (6.4-8.2); Troponin High Sensitivity 15.2 pg/mL (<58.9)
--- NOTE | 2022-09-27 09:37 | RAD REPORT ---
EXAM DESCRIPTION: RAD - Chest Single View - 09/27/2022 9:23 am CLINICAL HISTORY: SOB, fever COMPARISON: Portable 09/14/2022 TECHNIQUE: AP portable chest image was obtained 09/27/2022 9:23 am . FINDINGS: No peripheral mass or consolidation. Lung volume is slightly diminished from the compariso n. This accentuates the lung base markings. No failure or volume overload. Trachea is midline. Heart and vasculature are normal. No measurable pleural effusion and no pneumotho rax. No acute bony abnormality seen. No acute aortic findings suspected. IMPRESSION: No dense consolidation is seen. Lung markings in each base are slightly increased favore d to be atelectasis from shallow examination. Minimal patchy lung base infiltrates cannot be excluded.
[2022-09-27 10:02] LABS: SARS-COV-2 RT PCR NEGATIVE (NEGATIVE)
--- NOTE | 2022-09-27 10:11 | RAD REPORT ---
EXAM DESCRIPTION: CT - Chest For Pe Angio - 09/27/2022 9:34 am CLINICAL HISTORY: SOB, elevated D-dimer COMPARISON: Chest For Pe Angio dated 09/14/2022; Chest Single View dated 09/27/2022 TECHNIQUE: Dynamically enhanced 3 mm thick images of the chest were obtained during administration o f approximately 150mL Isovue 370 IV contrast. Coronal and oblique MIP reconstruction images were gene rated and reviewed. Exam utilizes a protocol to evaluate the pulmonary arterial tree. All CT scans are performed using dose optimization technique as appropriate and may include automated exposure control or mA/KV adjustment according to patient size. FINDINGS: Significant respiratory motion artifact limits the far peripheral pulmonary artery branch assessment. No central, lobar or segmental branch pulmonary emboli seen. Assessment is limited but no subsegmental embolus suspected. The aorta as imaged shows no acute or suspicious finding. No pericardial thickening or effusion. No one area of dense consolidation or mass lesions seen. There are scattered ground-glass opacities t hroughout both lung ho. This can be seen with atelectasis. These are mostly peripheral in distrib ution. Viral pneumonia including COVID-19 pneumonia would be primary consideration. Pattern is not cl assic for bacterial pneumonia. Overall interstitial pattern assessment is limited due to the extent o f motion. No pleural effusion or pleural thickening. Numerous small mediastinal and hilar lymph nodes are present. This is most likely a reactive lymph no de pattern due to the acute lung parenchymal disease. No chest wall masses or abnormal axillary lymph adenopathy. Patient has an enlarged, lobulated thyroid gland. This matches prior imaging. Gland is only partially visualized. No large nodule is seen. IMPRESSION: Far peripheral branch assessment is limited due to respiratory motion. Overall, no pulmo nary emboli are seen and none suspected. Patchy airspace opacification scattered in both lung ho. This pattern is more favorable for a vir al infectious process. COVID-19 pneumonia can have this presentation.Bacterial pneumonia is lesser in consideration but can be correlated with laboratory findings. Mediastinal and hilar lymph node pattern is believed to be reactive adenopathy due to the lung parenc hymal disease.
--- NOTE | 2022-09-27 10:37 | ER ---
Nurse's Notes [facility] Name: Chey Belle Age: 46 yrs Sex: Female : 1975 Arrival Date: 09/27/2022 Time: 07:58 Bed 5 Private MD: Diagnosis: Viral pneumonia, unspecified;Influenza due to identified novel influenza A virus;Acute respiratory distress syndrome;Severe sepsis without septic shock;Unspecified asthma with (acute) exacerbation Presentation: 09/27 08:02 Chief complaint: Patient states: started as a sinus infection, now it feels like it's iw in her lungs and she can't breath X 2-3 days, also running fever. Coronavirus screen: Client presents with at least one sign or symptom that may indicate coronavirus-19. Ebola Screen: Patient negative for fever greater than or equal to 101.5 degrees Fahrenheit, and additional compatible Ebola Virus Disease symptoms Patient denies exposure to infectious person. Patient denies travel to an Ebola-affected area in the 21 days before illness onset. No symptoms or risks identified at this time. Risk Assessment: Do you want to hurt yourself or someone else? Patient reports no desire to harm self or others. Onset of symptoms was September 25, 2022. 08:02 Method Of Arrival: Wheelchair iw 08:02 Acuity: UBALDO 2 iw 08:23 Initial Sepsis Screen: Does the patient meet any 2 criteria? RR > 20 per min. HR > 90 iw bpm. Does the patient have a suspected source of infection? Yes: Productive cough/pneumonia. Triage Assessment: 08:45 General: Appears distressed, uncomfortable, Behavior is anxious. Neuro: Level of db Consciousness is awake, alert, obeys commands, Oriented to person, place, time, situation. Respiratory: Reports shortness of breath cough that is labored breathing since 3 DAYS AGO Onset: The symptoms/episode began/occurred gradually, the patient has severe shortness of breath. 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 - Social history:: Smoking status: Patient reports the use of cigarette tobacco products, smokes one pack cigarettes per day. quit 2 weeks ago . Screenin:38 [facility] ED Fall Risk Assessment (Adult) History of falling in the last 3 months, db including since admission No falls in past 3 months (0 pts) Confusion or Disorientation No (0 pts) Intoxicated or Sedated No (0 pts) Impaired Gait No (0 pts) Mobility Assist Device Used No (0 pt) Altered Elimination No (0 pt) Score/Fall Risk Level 0 - 2 = Low Risk Oriented to surroundings, Maintained a safe environment. Abuse screen: Denies threats or abuse. Denies injuries from another. Nutritional screening: No deficits noted. Tuberculosis screening: No symptoms or risk factors identified. Assessment: 08:30 Reassessment:. Pain: Complains of pain in chest. Cardiovascular: No deficits noted. db Reports shortness of breath, Rhythm is sinus tachycardia. Respiratory: Reports shortness of breath cough that is productive, Airway is patent Respiratory effort is even, labored, using tripod position, Respiratory pattern is regular, symmetrical, Breath sounds are coarse Breath sounds are diminished bilaterally. GI: No deficits noted. No signs and/or symptoms were reported involving the gastrointestinal system. : No deficits noted. No signs and/or symptoms were reported regarding the genitourinary system. EENT: No deficits noted. No signs and/or symptoms were reported regarding the EENT system. 10:14 Reassessment: Patient and/or family updated on plan of care and expected duration. Pain db level reassessed. Respiratory: Reports shortness of breath. 11:06 Reassessment: Patient and/or family updated on plan of care and expected duration. Pain db level reassessed. HOSPITALIST AT PATIENT BEDSIDE. 2 ND BREATHING TREATMENT STARTED. 12:00 Reassessment: Patient and/or family updated on plan of care and expected duration. Pain db level reassessed. Patient states feeling better. Patient states symptoms have improved. 13:00 Reassessment: SEE [facility] FOR CONTINUED CHARTING Patient states feeling better. db Patient states symptoms have improved. Vital Signs: 08:02 BP 139 / 68; Pulse 117; Resp 22; Temp 98.1; Pulse Ox 86% on R/A; Weight 74.84 kg; iw Height 5 ft. 0 in. (152.40 cm); 08:15 BP 130 / 100; Pulse 113; Resp 32; Pulse Ox 87% on 2 lpm NC; db 09:09 BP 128 / 78; Pulse 110; Resp 34; Pulse Ox 99% on Nebulizer Mask; db 10:15 BP 129 / 71; Pulse 109; Resp 24; Pulse Ox 96% on 4 lpm NC; db 11:15 BP 129 / 74; Pulse 111; Resp 24; Pulse Ox 94% on 4 lpm NC; db 08:02 Body Mass Index 32.22 (74.84 kg, 152.40 cm) iw ED Course: 07:58 Patient arrived in ED. rg4 08:04 Triage completed. iw 08:05 Arm band placed on. iw 08:07 Margarette Flores PA is PHCP. en 08:07 Jacek Jansen MD is Attending Physician. en 08:17 Enid Lopez, PRISCILLA is Primary Nurse. db 08:35 Missed attempt(s): 20 gauge in right antecubital area. Bleeding controlled, band aid db applied, catheter tip intact. 08:37 Initial lab(s) drawn, by me, sent to lab. Second set of blood cultures drawn by me. ll1 Missed attempt(s): 22 gauge in left antecubital area. Bleeding controlled, band aid applied, catheter tip intact. 08:50 sent to lab. Second set of blood cultures drawn by me. db 08:55 Inserted saline lock: 20 gauge in left antecubital area, using aseptic technique. db ,using aseptic technique. IV start by PRISCILLA Murphy. 09:25 XRAY Chest (1 view) In Process Unspecified. EDMS 09:36 Chest For Pe Angio In Process Unspecified. EDMS 09:39 Patient has correct armband on for positive identification. Bed in low position. Call db light in reach. Side rails up X 1. Client placed on continuous cardiac and pulse oximetry monitoring. NIBP monitoring applied. Pillow given. 10:15 Oxygen administration via nasal cannula \T\ 4L/min Response to oxygen therapy: symptoms db improved. 10:34 Lukas Rmairez MD is Hospitalizing Provider. en 13:56 No provider procedures requiring assistance completed. Patient admitted, IV remains in db place. Administered Medications: 08:53 Drug: Albuterol - atroVENT (ipratropium) (3:1) (2.5 mg - 0.5 mg) 6 ml Route: Nebulizer; db 09:55 Follow up: Response: No adverse reaction db 09:00 Drug: SOLU-Medrol (methylPREDNISolone sodium succinate) 125 mg Route: IM; Site: left db deltoid; 09:55 Follow up: Response: No adverse reaction db 09:00 Drug: Rocephin (cefTRIAXone) 1 grams Route: IV; Rate: calculated rate; Site: left db antecubital; 09:45 Follow up: Response: No adverse reaction; IV Status: Completed infusion; IV Intake: db 100ml 09:00 Drug: NS 0.9% 1000 ml Route: IV; Rate: 1000 ml; Site: left antecubital; db 11:06 Follow up: Response: No adverse reaction; IV Status: Completed infusion; IV Intake: db 1000ml 09:30 Not Given (Duplicate Order; NS0.99): NS 0.45 % 1000 ml IV at bolus once db 10:00 Drug: Zithromax (azithromycin) 500 mg Route: IVPB; Infused Over: 1 hrs; Site: left db antecubital; 11:06 Follow up: Response: No adverse reaction; IV Status: Completed infusion; IV Intake: db 250ml 11:06 Drug: Albuterol 2.5 mg Route: Inhalation; db 11:59 Follow up: Response: No adverse reaction db Medication: 13:58 VIS not applicable for this client. db Intake: 09:45 IV: 100ml; Total: 100ml. db 11:06 IV: 1000ml; Total: 1100ml. db 11:06 IV: 250ml; Total: 1350ml. db Outcome: 10:36 Decision to Hospitalize by Provider. en 13:57 Admitted to Tele db 13:57 Condition: stable 13:57 Instructed on the need for admit. 14:20 Patient left the ED. db Signatures: Dispatcher [employer] Katherine Del Cid RN RN iw Garcia, Rubi rg4 Barbara Belle RN RN ll1 Margarette Flores PA PA en Benton, Danielle, RN RN db Corrections: (The following items were deleted from the chart) 08:05 08:02 Pulse 117bpm; Resp 22bpm; Pulse Ox 86% RA; Temp 98.1F; 74.84 kg; Height 5 ft. 0 iw in.; BMI: 32.2; iw 08:23 08:02 Initial Sepsis Screen: Does the patient meet any 2 criteria? Does the patient iw have a suspected source of infection? No. Patient's initial sepsis screen is negative. iw 09:38 08:30 Cardiovascular: No deficits noted. Reports shortness of breath, Rhythm is sinus db rhythm db 10:15 09:09 BP 128 / 78; Pulse 110bpm; Resp 34bpm; Pulse Ox 99% RA; db db 13:56 11:06 Reassessment: Patient and/or family updated on plan of care and expected db duration. Pain level reassessed. HOSPITALIST AT PATIENT BEDSIDE. BREATHING TREATMENT STARTED db
--- NOTE | 2022-09-27 10:37 | EDPHYS ---
Physician Documentation [facility] Name: Chey Belle Age: 46 yrs Sex: Female : 1975 Arrival Date: 09/27/2022 Time: 07:58 Bed 5 Private MD: ED Physician Jacek Jansen HPI: 09/27 08:24 This 46 yrs old Female presents to ER via Wheelchair with complaints of Breathing en Difficulty. 08:24 46-year-old female with history of peripheral vascular disease, hypertension, asthma en presents to ED with worsening shortness of breath and cough with wheezing by 4 days. Patient reports no relief with albuterol inhalers, chest tightness, and wheezing. Subjective fevers and chills without nausea or vomiting. Patient reports having a cardiac cath that was negative does have extensive peripheral vascular disease in the bilateral lower extremities.. 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 - Social history:: Smoking status: Patient reports the use of cigarette tobacco products, smokes one pack cigarettes per day. quit 2 weeks ago . ROS: 08:24 Constitutional: Positive for fatigue, fever. en 08:24 Cardiovascular: Negative for chest pain, edema, orthopnea, palpitations, paroxysmal nocturnal dyspnea. 08:24 Respiratory: Positive for Moderate respiratory distress with shortness of breath, wheezing, cough. 08:24 All other systems are negative. Exam: 08:24 Constitutional: The patient appears Moderate respiratory distress secondary to en shortness of breath, increased work of breathing and hypoxia. Visibly uncomfortable 08:24 Eyes: Conjunctiva: normal, no exudate, no injection. 08:24 ENT: Mouth: Lips: moist, Oral mucosa: pink and intact. 08:24 Neck: No JVD. 08:24 Cardiovascular: Tachycardic secondary to respiratory distress. No peripheral edema. No murmurs gallops or rubs. 08:24 Respiratory: Moderate respiratory distress with hypoxia in the upper 80s, shallow breaths with diffuse wheezes and prolonged expiratory phase, no rhonchi, respiratory rate in the 30s. Vital Signs: 08:02 BP 139 / 68; Pulse 117; Resp 22; Temp 98.1; Pulse Ox 86% on R/A; Weight 74.84 kg; iw Height 5 ft. 0 in. (152.40 cm); 08:15 BP 130 / 100; Pulse 113; Resp 32; Pulse Ox 87% on 2 lpm NC; db 09:09 BP 128 / 78; Pulse 110; Resp 34; Pulse Ox 99% on Nebulizer Mask; db 10:15 BP 129 / 71; Pulse 109; Resp 24; Pulse Ox 96% on 4 lpm NC; db 11:15 BP 129 / 74; Pulse 111; Resp 24; Pulse Ox 94% on 4 lpm NC; db 08:02 Body Mass Index 32.22 (74.84 kg, 152.40 cm) iw MDM: 08:07 Patient medically screened. en 08:24 Differential diagnosis: asthma, Bronchitis CHF exacerbation, Chronic Obstructive en Pulmonary Disease pneumonia, Pneumothorax pulmonary edema, Pulmonary Embolism reactive airway disease, Sepsis Unstable Angina. The patient's pulmonary embolism risk score was calculated as follows: No Risks (0 Pts). 08:30 Data reviewed: vital signs, nurses notes. ED course: Patient in moderate respiratory en distress. Placed on 4 L nasal cannula with improvement in hypoxia and mild improvement with work of breathing we will continue to watch. She is not stabilized, will end up on BiPAP. Will give duo nebs, Solu-Medrol for asthma exacerbation. Patient tachycardic and respiratory distress on arrival so sepsis bundle initiated. Blood cultures, lactic acid drawn 1 L NS started pending labs. Will cover with Zithromax and Rocephin IV since she is at risk for sepsis.. 08:32 Data reviewed: EKG, EKG on September 27, 2022 at 0815 sinus tachycardia at 118 bpm normal en intervals, right axis deviation, no STEMI. 09:17 Medical screen evaluation completed. EMTALA emergency medical condition absent. Medical en screen evaluation completed. EMTALA emergency medical condition absent. ED course: Patient respiratory alkalosis with ABG pH of 7.5, PCO2 27, PO2 55. O2 sats have improved on 4 L nasal cannula. Elevated D-dimer 1426. Will get CT angio chest to rule out PE. 09:24 ED course: Patient feeling more comfortable in air movement improving while getting en nebs.. 10:04 ED course: Patient is flu a positive. Outside of window of Tamiflu.. en 10:25 ED course: CT chest negative for PE. Consistent with viral pneumonia likely from en influenza. COVID-negative. Will admit for viral pneumonia from influenza with respiratory distress. 10:33 ED course: CT consistent with a viral pneumonia from influenza. Lactic acid normal en white blood cell count normal however she does have SIRS criteria consistent with sepsis. Given the presence of respiratory distress. Patient has severe sepsis from viral pneumonia and respiratory distress. Accepted by Dr. Ramirez. 09/27 08:21 Order name: Basic Metabolic Panel; Complete Time: 09:16 en 09/27 08:21 Order name: CBC with Diff; Complete Time: 09:16 09/27 08:21 Order name: D-Dimer; Complete Time: 09:16 09/27 08:21 Order name: LFT's; Complete Time: 09:16 09/27 08:21 Order name: Magnesium; Complete Time: 09:16 09/27 08:21 Order name: NT PRO-BNP; Complete Time: 09:16 09/27 08:21 Order name: PT-INR; Complete Time: 09:16 09/27 08:21 Order name: Troponin HS; Complete Time: 09:16 09/27 08:21 Order name: COVID-19/FLU A+B/RSV; Complete Time: 10:08 09/27 08:21 Order name: Blood Culture Adult (2) en 09/27 08:21 Order name: Lactate w/ 2H reflex if indic.; Complete Time: 09:16 09/27 08:21 Order name: Ptt, Activated; Complete Time: :16 09/27 08:21 Order name: ABG; Complete Time: 13:09 09/27 09:16 Order name: Test, Serum; Complete Time: 13:09 09/27 08:21 Order name: XRAY Chest (1 view); Complete Time: 09:42 09/27 08:21 Order name: EKG; Complete Time: 08:22 en 09/27 08:21 Order name: Cardiac monitoring; Complete Time: 08:36 en 09/27 08:21 Order name: EKG - Nurse/Tech; Complete Time: 08:36 en 09/27 09:16 Order name: CT Chest For PE Angio en 09/27 09:20 Order name: Chest For Pe Angio; Complete Time: 10:25 EDMS 09/27 12:30 Order name: Phosphorus; Complete Time: 13:09 EDMS 09/27 12:30 Order name: Magnesium; Complete Time: 13:09 EDMS 09/27 13:07 Order name: Potassium; Complete Time: 13:09 EDMS 09/27 08:21 Order name: IV Saline Lock; Complete Time: 09:32 en 09/27 08:21 Order name: Labs collected and sent; Complete Time: 09:32 en 09/27 08:21 Order name: O2 Per Protocol; Complete Time: 08:36 en 09/27 08:21 Order name: O2 Sat Monitoring; Complete Time: 08:36 en 09/27 08:21 Order name: Accucheck; Complete Time: 09:31 en 09/27 08:21 Order name: IV Saline Lock - Large Bore; Complete Time: 09:31 en 09/27 08:21 Order name: Vital Signs; Complete Time: 09:31 en Administered Medications: 08:53 Drug: Albuterol - atroVENT (ipratropium) (3:1) (2.5 mg - 0.5 mg) 6 ml Route: Nebulizer; db 09:55 Follow up: Response: No adverse reaction db 09:00 Drug: SOLU-Medrol (methylPREDNISolone sodium succinate) 125 mg Route: IM; Site: left db deltoid; 09:55 Follow up: Response: No adverse reaction db 09:00 Drug: Rocephin (cefTRIAXone) 1 grams Route: IV; Rate: calculated rate; Site: left db antecubital; 09:45 Follow up: Response: No adverse reaction; IV Status: Completed infusion; IV Intake: db 100ml 09:00 Drug: NS 0.9% 1000 ml Route: IV; Rate: 1000 ml; Site: left antecubital; db 11:06 Follow up: Response: No adverse reaction; IV Status: Completed infusion; IV Intake: db 1000ml 09:30 Not Given (Duplicate Order; NS0.99): NS 0.45 % 1000 ml IV at bolus once db 10:00 Drug: Zithromax (azithromycin) 500 mg Route: IVPB; Infused Over: 1 hrs; Site: left db antecubital; 11:06 Follow up: Response: No adverse reaction; IV Status: Completed infusion; IV Intake: db 250ml 11:06 Drug: Albuterol 2.5 mg Route: Inhalation; db 11:59 Follow up: Response: No adverse reaction db Disposition: 10:36 Critical Care:. en Disposition Summary: 09/27/22 10:36 Hospitalization Ordered Hospitalization Status: Inpatient Admission en Provider: Lukas Ramirez Location: Telemetry/MedSurg (Inpatient) en Condition: Fair en Problem: an acute exacerbation en Symptoms: are unchanged en Bed/Room Type: Standard en Room Assignment: 206(09/27/22 13:00) ja1 Diagnosis - Viral pneumonia, unspecified en - Influenza due to identified novel influenza A virus en - Acute respiratory distress syndrome en - Severe sepsis without septic shock en - Unspecified asthma with (acute) exacerbation en Discharge Instructions: - Discharge Summary Sheet en - How to Use a Dry Powder Inhaler en Forms: - Medication Reconciliation Form en - SBAR form en Critical care time excluding procedures: 10:36 Critical care time: Bedside Care: 25 minutes, Consultation: 5 minutes, Family en Intervention: 10 minutes. Total time: 40 minutes Addendum: 10/01/2022 13:22 Co-signature as Attending Physician, Jacek Jansen MD I agree with the assessment and c padron plan of care. Signatures: Dispatcher [employer] Jacek Whitlock MD MD cha Williams, Irene, RN RN iw Aguilar, Jose RN RN Margarette Rico PA PA en Benton, Danielle, RN RN db Corrections: (The following items were deleted from the chart) 09/27 13:00 10:36 en quinn
[2022-09-27] MEDS ORDERED: ONDANSETRON 4 MG/2 ML VIAL IV PRN (11:27)
[2022-09-27] MEDS: OSELTAMIVIR 75 MG CAP PO SCH ×2 (11:45→20:04)
--- NOTE | 2022-09-27 11:54 | P.HP ---
Certification for Inpatient Patient admitted to: Inpatient With expected LOS: >2 Midnights Patient will require the following post-hospital care: None (Female.) Practitioner: I am a practitioner with admitting privileges, knowledge of patient current condition, hospital course, and medical plan of care. Services: Services provided to patient in accordance with Admission requirements found in Title 42 Section 412.3 of the Code of Federal Regulations Patient History Date of Service: 09/27/22 Reason for admission: Acute respiratory failure, Sepsis History of Present Illness: Patient is a 46-year-old female with a past medical history significant for COPD, asthma, CIDP, PVD, hypertension, nicotine dependence who presents with complaint of shortness of breath that has been ongoing for the past 3 days. Patient reports sick family contact. Patient reports associated signs and symptoms of cough, sore throat, rhinorrhea, nasal\chest congestion, headache, fever, chills, generalized body aches, chest tightness, loss of appetite and lower abdominal quadrant pain. Patient rated pain as 7/10 in severity and described pain as aching in quality. Patient decided to present to the hospital due to worsening symptoms. Allergies amitriptyline Allergy (Verified 08/19/22 13:45) Anger/Agitation Home Medications: Aspirin [Aspirin EC 81 MG] 81 mg PO DAILY #30 tab 09/15/22 Atorvastatin Calcium [Lipitor] 40 mg PO BEDTIME #30 tab 09/15/22 - Past Medical/Surgical History Diabetic: No -: COPD -: Hypertension -: PVD -: Psychosocial/ Personal History: Patient lives at home with her boyfriend. - Family History Mother -: Heart disease - Social History Smoking Status: Current every day smoker Counseled patient to stop smoking for: less than 10 minutes Smoking therapy provided: Yes Patient receptive to therapy: Yes Alcohol use: Yes CD- Drugs: No Caffeine use: No Place of Residence: Home Review of Systems General: Fever, Chills, Other (generalized body aches, Loos appeptite) Eyes: Unremarkable ENT: Nose Congestion, Throat Pain, Other (Rhinorrhea ) Respiratory: Cough, Shortness of Breath, Other (Chest congestion, chest tigh tness ) Cardiovascular: Unremarkable Gastrointestinal: Abdominal Pain Genitourinary: Unremarkable Musculoskeletal: Unremarkable Integumentary: Unremarkable Neurological: Other (headache) Lymphatics: Unremarkable Physical Examination - Physical Exam General: Alert, Oriented x3, Cooperative, Mild distress (Patient who) HEENT: Atraumatic, PERRLA, Mucous membr. moist/pink, EOMI, Sclerae nonicteric Neck: Supple, 2+ carotid pulse no bruit, No LAD, Without JVD or thyroid abnormality Respiratory: Diminished, Expiratory wheezes (Please), Inspiratory wheezes Cardiovascular: Regular rate/rhythm, Normal S1 S2 Capillary refill: <2 Seconds Gastrointestinal: Normal bowel sounds, Tenderness Musculoskeletal: No clubbing, No swelling, No contractures, No erythema Integumentary: No rashes, No breakdown, No significant lesion Neurological: Normal speech, Normal tone, Normal affect Lymphatics: No axilla or inguinal lymphadenopathy - Studies Laboratory Data (last 24 hrs) 09/27/22 08:35: PT 12.9 H, INR 1.17, APTT 38.0 H 09/27/22 08:35: WBC 8.60, Hgb 12.0, Hct 35.9 L, Plt Count 311 09/27/22 08:35: Sodium 140, Potassium 3.0 L, BUN 9, Creatinine 0.77, Glucose 119 H, Magnesium 1.8, Total Bilirubin 0.5, AST 26, ALT 26, Alkaline Phosphatase 119 H Assessment and Plan - Plan --Sepsis POA. Sepsis protocol implemented in the ER. Blood cultures pending. Patient placed on antibiotics. --Acute respiratory failure with hypoxia. Likely secondary to pneumonia, influenza A and COPD exacerbation. Continue current treatment regimen and neb treatment with albuterol\Atrovent. Pulmonology consulted. Will await further recommendations. --Pneumonia. Likely viral with possible superimposed bacterial pneumonia. Continue antibiotics, neb treatment with Atrovent\albuterol and O2 therapy. --Influenza A. Patient placed on Tamiflu. Continue supportive care. -- Acute on chronic COPD exacerbation. Continue steroids and current treatment regimen. --Severe persistent asthma with acute exacerbation. Continue current treatment regimen. --History of CIDP. Continue supportive care. --History of PVD. Patient has a history of occluded distal aorta. Patient follows up with a vascular surgeon and surgery consideration in place. Continue supportive care. --Hypertension. Poorly controlled. We will manage BP with labetalol as needed. --Nicotine dependence. Patient counseled on tobacco cessation and placed on nicotine patch. --Class I obesity. Likely secondary to excessive calories intake. Patient counseled on weight reduction, diet and exercise therapy. -- Elevated D-dimer. CTA PE protocol negative for PE. Continue supportive care. --DVT prophylaxis with Lovenox subQ. Discharge Plan: Home Plan to discharge in: Greater than 2 days - Advance Directives Does patient have a Living Will: No Does patient have a Durable POA for Healthcare: No - Code Status/Comfort Care Code Status Assessed: Yes Code Status: Full Code Physician Review: Patient Assessed, Agree with Above Assessment and Plan Critical Care: No
[2022-09-27] MEDS ORDERED: VANCOMYCIN 1 GM in NA CHLORIDE 0.9% 250 ML IVPB SCH (12:00)
[2022-09-27] MEDS ORDERED: LABETALOL 20 MG/4ML SYRINGE IV PRN (12:22)
[2022-09-27] MEDS ORDERED: POTASSIUM CL SA 10 MEQ TAB PO ONE ×2 (12:29→13:05)
[2022-09-27 12:30] LABS: Magnesium 1.6 mg/dL (1.6-2.4); Phosphorus 2.1 mg/dL (2.5-4.9)
[2022-09-27] MEDS: VANCOMYCIN 1.25 GM in NA CHLORIDE 0.9% 250 ML IVPB SCH (13:00)
[2022-09-27] MEDS ORDERED: OSELTAMIVIR 75 MG CAP PO ONE (13:05)
[2022-09-27] MEDS: ACETAMINOPHEN 325 MG TABLET PO PRN ×2 (13:10→20:15)
[2022-09-27] MEDS ORDERED: ACETAMINOPHEN 325 MG TABLET ONE (13:26)
[2022-09-27 13:30] VITALS: BMI 32.2
[2022-09-27] MEDS: IPRATROPIUM BROM 0.5MG/2.5ML NEB SCH ×2 (14:00→19:20)
[2022-09-27] MEDS: ALBUTEROL 2.5 MG/3 ML NEB SOL NEB SCH ×2 (14:00→19:20)
[2022-09-27] MEDS ORDERED: CEFEPIME 1 GM/VIAL ONE (17:02)
[2022-09-27] MEDS ORDERED: NA CHLORIDE 0.9% 100 ML ONE (17:05)
[2022-09-27] MEDS: CEFEPIME 1 GM in NA CHLORIDE 0.9% 100 ML IV SCH (17:05)
[2022-09-27] MEDS: METHYLPREDNISOLONE 40 MG INJ IV SCH (17:06)
[2022-09-27] MEDS: HYDROCODONE/APAP 5/325 MG TAB PO PRN (17:32)
[2022-09-27 17:42] LABS: Specific Gravity 1.013 (1.005-1.030); Urine Bilirubin NEGATIVE (Negative); Urine Blood Negative (Negative); Urine Clarity Clear (Clear); Urine Color Light-Yellow (Yellow); Urine Glucose NEGATIVE (Negative); Urine Protein NEGATIVE (Negative); Urine Urobilinogen Normal (Normal)
[2022-09-27] MEDS: ATORVASTATIN 40 MG TAB PO SCH (20:04)
[2022-09-27] MEDS ORDERED: OSELTAMIVIR 75 MG CAP PO SCH (21:00)
[2022-09-27] MEDS ORDERED: POTASSIUM 25 MEQ EFFERV TAB PO ONE (21:00)
[2022-09-27] MEDS ORDERED: BUSPIRONE HCL 15 MG TABLET PO SCH (21:00)
[2022-09-27] MEDS ORDERED: ATORVASTATIN 40 MG TAB PO SCH (21:00)
[2022-09-27] MEDS: DICLOFENAC SOD D.R. 75 MG TAB PO SCH (21:00)
[2022-09-27] MEDS: PREGABALIN 150 MG CAP PO SCH (21:05)
[2022-09-27] MEDS: METOPROLOL TAR 50 MG TAB PO SCH (21:05)
[2022-09-27] MEDS: TRAZODONE 50 MG TABLET PO SCH (21:24)
[2022-09-27] MEDS: BUSPIRONE HCL 5 MG TABLET PO SCH (21:24)
[2022-09-27] MEDS: CYCLOBENZAPRINE 10 MG TAB PO SCH (22:47)
[2022-09-28] MEDS ORDERED: NA CHLORIDE 0.9% 100 ML ONE (00:13)
[2022-09-28] MEDS ORDERED: CEFEPIME 1 GM/VIAL ONE ×3 (00:13→15:14)
[2022-09-28] MEDS: CEFEPIME 1 GM in NA CHLORIDE 0.9% 100 ML IV SCH ×3 (00:14→16:25)
[2022-09-28] MEDS: METHYLPREDNISOLONE 40 MG INJ IV SCH ×3 (00:14→16:25)
[2022-09-28] MEDS: IPRATROPIUM BROM 0.5MG/2.5ML NEB SCH ×5 (02:00→20:50)
[2022-09-28] MEDS: ALBUTEROL 2.5 MG/3 ML NEB SOL NEB SCH ×5 (02:00→20:50)
[2022-09-28 03:28] LABS: Absolute Lymphocytes (CBC) 1.3 K/uL (0.7-4.9); Hematocrit 36.2 % (36.0-45.0); Lymphocytes % 10.1 % (15.3-44.8); MCV 86.3 fL (80-100); MPV 9.2 fL (7.6-11.3)
[2022-09-28 03:59] LABS: Potassium 3.8 mmol/L (3.5-5.1)
[2022-09-28 04:16] LABS: Magnesium 2.1 mg/dL (1.6-2.4); Phosphorus 3.5 mg/dL (2.5-4.9)
[2022-09-28] MEDS: VANCOMYCIN 1.25 GM in NA CHLORIDE 0.9% 250 ML IVPB SCH ×2 (05:55→23:53)
[2022-09-28] MEDS ORDERED: POTASSIUM 25 MEQ EFFERV TAB PO ONE (09:00)
[2022-09-28] MEDS: NICOTINE 14 MG/PAT TD SCH (09:20)
[2022-09-28] MEDS: ENOXAPARIN 40 MG/0.4 ML SQ SCH (09:20)
[2022-09-28] MEDS: BUSPIRONE HCL 5 MG TABLET PO SCH ×2 (09:21→20:07)
[2022-09-28] MEDS: AMLODIPINE 10 MG TAB PO SCH (09:21)
[2022-09-28] MEDS: ASPIRIN 81 MG CHEWABLE TABLET PO SCH (09:21)
[2022-09-28] MEDS: METOPROLOL TAR 50 MG TAB PO SCH ×2 (09:21→20:07)
[2022-09-28] MEDS: OSELTAMIVIR 75 MG CAP PO SCH ×2 (09:21→20:07)
[2022-09-28] MEDS: PREGABALIN 150 MG CAP PO SCH ×3 (09:21→20:07)
[2022-09-28] MEDS: DICLOFENAC SOD D.R. 75 MG TAB PO SCH ×2 (09:22→20:07)
[2022-09-28] MEDS: HYDROCODONE/APAP 5/325 MG TAB PO PRN ×2 (11:56→18:37)
--- NOTE | 2022-09-28 12:38 | P.PN ---
Subjective Date of Service: 09/28/22 Chief Complaint: Acute respiratory failure, Sepsis Patient states she feels better than yesterday but stated she is still short of breath. Patient was seen on 5 L oxygen by nasal cannula. She is coughing intermittently. Cough is nonproductive. Physical Examination - Vital Signs Temperature: 98.4 F Blood Pressure: 164/85 Pulse: 80 Respirations: 20 Pulse Ox (%): 95 - Studies Laboratory Data (last 24 hrs) 09/27/22 09:50: Potassium 2.9 L* Assessment And Plan - Current Problems (Diagnosis) (1) COPD exacerbation Current Visit: Yes Status: Acute (2) Acute and chronic respiratory failure with hypoxia Current Visit: Yes Status: Acute (3) Influenza Current Visit: Yes Status: Acute (4) Pneumonia Current Visit: Yes Status: Acute (5) Hypertension Current Visit: No Status: Chronic Qualifiers: Hypertension type: primary hypertension Qualified Code(s): I10 - Essential (primary) hypertension - Plan Physical Exam General: Alert, Oriented x3, Cooperative, not in acute distress HEENT: Mucous membr. moist/pink. Respiratory: Diminished, mild scattered bilateral wheezes. Cardiovascular: Regular rate/rhythm, Normal S1 S2 Gastrointestinal: Normal bowel sounds, nontender. Musculoskeletal: No swelling, No erythema Integumentary: No rashes, No breakdown, No significant lesion Neurological: Normal speech, Normal tone, Normal affect Plan: Pneumonia noted on the CT-viral versus bacterial origin. Continue antibiotics. Continue Tamiflu Scheduled bronchodilators for COPD exacerbation IV steroid Wean off oxygen. Patient is currently tolerating 2 L by nasal cannula Continue home medications for hypertension. Labetalol as needed. Blood cultures: No growth to date. Follow cultures. Activity as tolerated, encourage diet. Physician Review: Patient Assessed, Agree with Above Assessment and Plan
--- NOTE | 2022-09-28 14:25 | EKG ---
Test Date: 2022-09-27 Test Time: 08:15:18 Pension Agent: SHEA MEASUREMENT RESULTS: Intervals: Rate: 118 WV: 148 QRSD: 76 QT: 316 QTc: 442 [place]: P: 72 WV: 148 QRS: 82 T: 52 INTERPRETIVE STATEMENTS: Sinus tachycardia Otherwise normal ECG Compared to ECG 09/14/2022 21:38:25 Sinus rhythm no longer present Electronically Signed On 09-28-22 14:22:56 [employer] ROOM ATTENDANT by Edvin Couch
[2022-09-28] MEDS: CYCLOBENZAPRINE 10 MG TAB PO SCH (20:07)
[2022-09-28] MEDS: TRAZODONE 50 MG TABLET PO SCH (20:07)
[2022-09-28] MEDS: ATORVASTATIN 40 MG TAB PO SCH (20:07)
[2022-09-29] MEDS ORDERED: NA CHLORIDE 0.9% 0 ML ONE (00:02)
[2022-09-29] MEDS ORDERED: CEFEPIME 1 GM/VIAL ONE ×2 (00:03→09:36)
[2022-09-29] MEDS: CEFEPIME 1 GM in NA CHLORIDE 0.9% 100 ML IV SCH ×2 (00:04→09:00)
[2022-09-29] MEDS: METHYLPREDNISOLONE 40 MG INJ IV SCH ×2 (00:04→09:00)
[2022-09-29] MEDS: ALBUTEROL 2.5 MG/3 ML NEB SOL NEB SCH ×4 (02:20→21:20)
[2022-09-29] MEDS: IPRATROPIUM BROM 0.5MG/2.5ML NEB SCH ×4 (02:20→21:20)
[2022-09-29] MEDS: HYDROCODONE/APAP 5/325 MG TAB PO PRN ×3 (03:58→15:50)
[2022-09-29 05:53] LABS: Absolute Lymphocytes (CBC) 1.1 K/uL (0.7-4.9); Hematocrit 32.5 % (36.0-45.0); Lymphocytes % 10.4 % (15.3-44.8); MCV 86.8 fL (80-100); MPV 9.3 fL (7.6-11.3); RBC Red Blood Cell Count 3.75 M/uL (3.86-4.86)
[2022-09-29 06:06] LABS: Potassium 3.8 mmol/L (3.5-5.1)
[2022-09-29] MEDS ORDERED: POTASSIUM 25 MEQ EFFERV TAB PO ONE (09:00)
[2022-09-29] MEDS ORDERED: NA CHLORIDE 0.9% 100 ML ONE (09:37)
[2022-09-29] MEDS: NICOTINE 14 MG/PAT TD SCH (09:45)
[2022-09-29] MEDS: ENOXAPARIN 40 MG/0.4 ML SQ SCH (09:46)
[2022-09-29] MEDS: DICLOFENAC SOD D.R. 75 MG TAB PO SCH ×2 (09:46→22:45)
[2022-09-29] MEDS: METOPROLOL TAR 50 MG TAB PO SCH ×2 (09:47→22:44)
[2022-09-29] MEDS: ASPIRIN 81 MG CHEWABLE TABLET PO SCH (09:47)
[2022-09-29] MEDS: BUSPIRONE HCL 5 MG TABLET PO SCH ×2 (09:47→22:43)
[2022-09-29] MEDS: AMLODIPINE 10 MG TAB PO SCH (09:47)
[2022-09-29] MEDS: PREGABALIN 150 MG CAP PO SCH ×3 (09:47→22:45)
[2022-09-29] MEDS: OSELTAMIVIR 75 MG CAP PO SCH ×2 (09:48→22:45)
[2022-09-29] MEDS: levoFLOXacin 750 MG TAB PO SCH (12:32)
--- NOTE | 2022-09-29 12:36 | P.CNS ---
Date of Consult: 09/29/22 Reason for Consult: Respiratory failure Chief Complaint: Acute respiratory failure, Sepsis History of Present Illness: Patient is 46 years of age with a history of COPD asthma hypertension and active smoker has been complaining of worsening dyspnea is a little better still complaining of significant coughing spells and sick for the past 3 days respiratory tract symptoms fever chills SCO for viral infection Allergies amitriptyline Allergy (Verified 08/19/22 13:45) Anger/Agitation Home Medications: Albuterol Sulfate [Proventil Hfa] 1 puff NEB DAILYPRN PRN 09/27/22 Amlodipine Besylate 10 mg PO DAILY 09/27/22 Atorvastatin Calcium 40 mg PO BEDTIME 09/27/22 Buspirone HCl 15 mg PO BID 09/27/22 Cyclobenzaprine [Flexeril*] 10 mg PO BEDTIME 09/27/22 Dexlansoprazole [Dexlansoprazole Dr] 60 mg PO DAILY 09/27/22 Diclofenac Sodium [Voltaren] 75 mg PO BID 09/27/22 Duloxetine HCl 60 mg PO DAILY 09/27/22 Fenofibrate 160 mg PO DAILY 09/27/22 Fluticasone [Flovent Hfa 110*] 110 mcg NEB DAILYPRN PRN 09/27/22 Hydrocodone Bit/Acetaminophen [[place] 10-325 Tablet] 10 - 325 mg PO TID PRN 09/27/22 Metoprolol Tartrate 50 mg PO BID 09/27/22 Pregabalin [Lyrica] 150 mg PO TID 09/27/22 Trazodone [Desyrel*] 50 mg PO BEDTIME 09/27/22 hydroCHLOROthiazide [Hydrochlorothiazide] 12.5 mg PO DAILY 09/27/22 - Past Medical/Surgical History Diabetic: No -: COPD -: Hypertension -: PVD -: -: wired jaw -: carpal tunnel surgery Psychosocial/ Personal History: Patient lives at home with her boyfriend. - Family History Mother Medical History: Heart disease - Social History Smoking Status: Current every day smoker Alcohol use: Yes CD- Drugs: No Caffeine use: No Place of Residence: Home Review of Systems General: Weakness Respiratory: Cough, Shortness of Breath Physical Examination Temp Pulse Resp BP Pulse Ox 97.6 F 88 16 180/79 H 97 09/29/22 08:00 09/29/22 09:47 09/29/22 09:44 09/29/22 09:47 09/29/22 09:44 General: Alert, In no apparent distress, Moderate distress Respiratory: Expiratory wheezes Cardiovascular: No edema, Regular rate/rhythm, Normal S1 S2 Gastrointestinal: Normal bowel sounds, Soft and benign - Problems (1) COPD exacerbation Current Visit: Yes Status: Acute Plan: Patient is 46 years of age admitted with COPD exacerbation chest x-ray is CT scan reviewed no evidence of bacterial infection white count is normal patient was also hypoxic hypercapnic no evidence of thromboembolism active smoker blood pressure elevated hypoxic tested positive for influenza A patient is on levofloxacin Home medication list reviewed she is on a variety of antidepressant medication including pain meds and bronchodilators blood pressure is also elevated patient's blood pressure elevated add Maxide changed to p.o. prednisone oxygenation satisfactory 97%
[2022-09-29] MEDS ORDERED: FLUTICASONE IH PRN (12:59)
--- NOTE | 2022-09-29 13:06 | P.PN ---
Subjective Date of Service: 09/29/22 Chief Complaint: Acute respiratory failure, Sepsis No major changes from yesterday. Patient's distal requiring 5 L oxygen by nasal cannula. No recorded fever over the past 24 hours. Physical Examination - Vital Signs Temperature: 96.8 F Blood Pressure: 151/70 Pulse: 67 Respirations: 16 Pulse Ox (%): 93 Assessment And Plan - Current Problems (Diagnosis) (1) COPD exacerbation Current Visit: Yes Status: Acute (2) Acute and chronic respiratory failure with hypoxia Current Visit: Yes Status: Acute (3) Influenza Current Visit: Yes Status: Acute (4) Pneumonia Current Visit: Yes Status: Acute (5) Hypertension Current Visit: No Status: Chronic Qualifiers: Hypertension type: primary hypertension Qualified Code(s): I10 - Essential (primary) hypertension - Plan Physical Exam General: Alert, Oriented x3, Cooperative, not in acute distress HEENT: Mucous membr. moist/pink. Respiratory: Diminished, mild scattered bilateral wheezes. Cardiovascular: Regular rate/rhythm, Normal S1 S2 Gastrointestinal: Normal bowel sounds, nontender. Musculoskeletal: No swelling, No erythema Integumentary: No rashes, No breakdown, No significant lesion Neurological: Normal speech, Normal tone, Normal affect Plan: Pneumonia noted on the CT-viral versus bacterial origin. Negative procalcitonin level. Antibiotics scaled down to oral Levaquin Continue Tamiflu Scheduled bronchodilators for COPD exacerbation Pulmonary input appreciated. IV steroid scaled down to oral prednisone Wean off oxygen as possible. Continue home medications for hypertension. Labetalol as needed. Blood cultures: No growth to date. Activity as tolerated, encourage diet. Patient may need home oxygen on discharge.
[2022-09-29] MEDS: MAXZIDE (HCTZ 25/TRIAMTERENE 37.5MG) TAB PO SCH (14:02)
[2022-09-29] MEDS: ATORVASTATIN 40 MG TAB PO SCH (22:43)
[2022-09-29] MEDS: predniSONE 20 MG TAB PO SCH (22:43)
[2022-09-29] MEDS: TRAZODONE 50 MG TABLET PO SCH (22:44)
[2022-09-29] MEDS: CYCLOBENZAPRINE 10 MG TAB PO SCH (22:44)
[2022-09-30] MEDS: IPRATROPIUM BROM 0.5MG/2.5ML NEB SCH ×3 (02:25→14:15)
[2022-09-30] MEDS: ALBUTEROL 2.5 MG/3 ML NEB SOL NEB SCH ×3 (02:25→14:15)
[2022-09-30] MEDS: HYDROCODONE/APAP 5/325 MG TAB PO PRN ×2 (04:05→11:59)
[2022-09-30 04:21] LABS: Hematocrit 34.3 % (36.0-45.0); Lymphocytes % 11.4 % (15.3-44.8); MCV 86.3 fL (80-100); MPV 8.8 fL (7.6-11.3); RBC Red Blood Cell Count 3.97 M/uL (3.86-4.86)
[2022-09-30 04:32] LABS: Potassium 4.6 mmol/L (3.5-5.1)
[2022-09-30] MEDS ORDERED: PANTOPRAZOLE 40MG TABLET PO SCH (06:30)
[2022-09-30] MEDS ORDERED: FENOFIBRATE 160 MG TAB PO SCH (09:00)
[2022-09-30] MEDS ORDERED: hydroCHLOROthiazide 12.5 MG CAP PO SCH (09:00)
[2022-09-30] MEDS: OSELTAMIVIR 75 MG CAP PO SCH (09:18)
[2022-09-30] MEDS: NICOTINE 14 MG/PAT TD SCH (09:18)
[2022-09-30] MEDS: predniSONE 20 MG TAB PO SCH (09:19)
[2022-09-30] MEDS: PREGABALIN 150 MG CAP PO SCH ×2 (09:19→13:42)
[2022-09-30] MEDS: ASPIRIN 81 MG CHEWABLE TABLET PO SCH (09:19)
[2022-09-30] MEDS: ENOXAPARIN 40 MG/0.4 ML SQ SCH (09:19)
[2022-09-30] MEDS: METOPROLOL TAR 50 MG TAB PO SCH (09:20)
[2022-09-30] MEDS: MAXZIDE (HCTZ 25/TRIAMTERENE 37.5MG) TAB PO SCH (09:20)
[2022-09-30] MEDS: AMLODIPINE 10 MG TAB PO SCH (09:20)
[2022-09-30] MEDS: levoFLOXacin 750 MG TAB PO SCH (09:21)
[2022-09-30] MEDS: BUSPIRONE HCL 5 MG TABLET PO SCH (09:22)
[2022-09-30] MEDS: DICLOFENAC SOD D.R. 75 MG TAB PO SCH (09:29)
[2022-09-30 12:49] VITALS: O2SAT 93
--- NOTE | 2022-09-30 15:22 | P.DS ---
Admission Date: 09/27/22 Discharge Date: 09/30/22 Disposition: ROUTINE DISCHARGE Discharge Condition: FAIR Reason for Admission: Acute respiratory failure, Sepsis - Problems (1) COPD exacerbation Current Visit: Yes Status: Acute (2) Acute and chronic respiratory failure with hypoxia Current Visit: Yes Status: Acute (3) Influenza Current Visit: Yes Status: Acute (4) Pneumonia Current Visit: Yes Status: Acute (5) Hypertension Current Visit: No Status: Chronic Qualifiers: Hypertension type: primary hypertension Qualified Code(s): I10 - Essential (primary) hypertension Brief History of Present Illness: Patient is a 46-year-old female with a past medical history significant for COPD, asthma, CIDP, PVD, hypertension, nicotine dependence who presented with complaint of shortness of breath that has been ongoing for 3 days. Patient reported sick family contact. Patient reported associated signs and symptoms of cough, sore throat, rhinorrhea, nasal\chest congestion, headache, fever, chills, generalized body aches, chest tightness, loss of appetite and lower abdominal quadrant pain. Patient rated pain as 7/10 in severity and described pain as aching in quality. Patient presented to the hospital due to worsening symptoms. She was noted to be hypoxic on room air and placed on 5 L O2 by NC. Chest x-ray done showed diffuse infiltrate suggestive of viral pneumonia. She tested positive for inlfuenza A. Patient admitted for further management. Hospital Course: Patient admitted to the medical floor and treated for influenza A, COPD exacerbation. She initially required about 5 L O2 by NC but she was weaned to room air as her respiratory condition improved with treatment. Patient was seen in consultation by Dr. Morales who assisted with management. She was treated with IV steroid and then transitioned to oral prednisone. Patient has improved, now stable on room air, not hypoxic on room air and with ambulation. Patient is deemed stable for discharge. Vital Signs/Physical Exam: Temp Pulse Resp BP Pulse Ox 96.0 F L 71 16 142/61 H 93 09/30/22 12:00 09/30/22 12:00 09/30/22 12:00 09/30/22 12:00 09/30/22 12:00 General: Alert, In no apparent distress, Oriented x3 HEENT: Mucous membr. moist/pink Neck: JVD not distended Respiratory: Clear to auscultation bilaterally, Normal air movement Cardiovascular: No edema, Regular rate/rhythm, Normal S1 S2 Gastrointestinal: Soft and benign, Non-distended, No tenderness Musculoskeletal: No swelling Integumentary: No rashes Neurological: Normal strength at 5/5 x4 extr Laboratory Data at Discharge: WBC 9.20 K/uL (4.3-10.9) 09/30/22 04:01 Hgb 11.3 g/dL (12.0-15.0) L 09/30/22 04:01 Hct 34.3 % (36.0-45.0) L 09/30/22 04:01 Plt Count 329 K/uL (152-406) 09/30/22 04:01 PT 12.9 SECONDS (9.5-12.5) H 09/27/22 08:35 INR 1.17 09/27/22 08:35 APTT 38.0 SECONDS (24.3-36.9) H 09/27/22 08:35 Sodium 138 mmol/L (136-145) D 09/30/22 04:01 Potassium 4.6 mmol/L (3.5-5.1) D 09/30/22 04:01 BUN 18 mg/dL (7-18) 09/30/22 04:01 Creatinine 0.93 mg/dL (0.55-1.02) 09/30/22 04:01 Glucose 123 mg/dL (74-106) H 09/30/22 04:01 Phosphorus 3.5 mg/dL (2.5-4.9) 09/28/22 02:52 Phosphorus Cancelled 09/28/22 02:52 Magnesium 2.1 mg/dL (1.6-2.4) 09/28/22 02:52 Magnesium Cancelled 09/28/22 02:52 Total Bilirubin 0.5 mg/dL (0.2-1.0) 09/27/22 08:35 AST 26 U/L (15-37) 09/27/22 08:35 ALT 26 U/L (13-56) 09/27/22 08:35 Alkaline Phosphatase 119 U/L (45-117) H 09/27/22 08:35 Home Medications: Albuterol Sulfate [Proventil Hfa] 1 puff NEB DAILYPRN PRN 09/27/22 Amlodipine Besylate 10 mg PO DAILY 09/27/22 Atorvastatin Calcium 40 mg PO BEDTIME 09/27/22 Buspirone HCl 15 mg PO BID 09/27/22 Cyclobenzaprine [Flexeril*] 10 mg PO BEDTIME 09/27/22 Dexlansoprazole [Dexlansoprazole Dr] 60 mg PO DAILY 09/27/22 Duloxetine HCl 60 mg PO DAILY 09/27/22 Fenofibrate 160 mg PO DAILY 09/27/22 Fluticasone [Flovent Hfa 110*] 110 mcg NEB DAILYPRN PRN 09/27/22 Hydrocodone Bit/Acetaminophen [[place] 10-325 Tablet] 10 - 325 mg PO TID PRN 09/27/22 Metoprolol Tartrate 50 mg PO BID 09/27/22 Pregabalin [Lyrica] 150 mg PO TID 09/27/22 Trazodone [Desyrel*] 50 mg PO BEDTIME 09/27/22 hydroCHLOROthiazide [Hydrochlorothiazide] 12.5 mg PO DAILY 09/27/22 Albuterol Neb [Proventil 0.083% Neb Soln] 2.5 mg NEB [id number] #120 amp 09/30/22 Aspirin Chewable [Aspirin Chewable*] 81 mg PO DAILY #30 tab.chew 09/30/22 Ipratropium Neb [Atrovent*] 0.5 mg NEB [id number] #120 amp 09/30/22 Oseltamivir [Tamiflu*] 75 mg PO BID #8 cap 09/30/22 Triamterene/Hctz [Maxzide 37.5 mg-25 mg Tablet*] 1 tab PO DAILY #30 tab 09/30/22 levoFLOXacin [Levaquin*] 750 mg PO DAILY #5 tab 09/30/22 predniSONE [Deltasone*] 10 mg PO DAILY #30 tab 09/30/22 New Medications: Ipratropium Neb [Atrovent*] 0.5 mg NEB [id number] #120 amp Albuterol Neb [Proventil 0.083% Neb Soln] 2.5 mg NEB [id number] #120 amp Aspirin Chewable [Aspirin Chewable*] 81 mg PO DAILY #30 tab.chew predniSONE [Deltasone*] 10 mg PO DAILY #30 tab levoFLOXacin [Levaquin*] 750 mg PO DAILY #5 tab Triamterene/Hctz [Maxzide 37.5 mg-25 mg Tablet*] 1 tab PO DAILY #30 tab Oseltamivir [Tamiflu*] 75 mg PO BID #8 cap Diet: AHA Activity: Ad emperatriz Followup: Ritesh Morales MD [ACTIVE - CAN ADMIT] - NONE,NONE [Primary Care Provider] - 1-2 Weeks Time spent managing pt's care (in minutes): 32
[2022-09-30 16:31] VITALS: BP 138/59; TEMP 96.3
== END 2022-09-30 16:35 | disposition home or self-care (01) | DRG 871 ==
LOC: ER 07:57 → ERHOLD 11:13 → 2ND 13:52
PROVIDERS: ADMIT Hospitalist; ATTEND Internal Medicine
DX: A41.89 Other specified sepsis (principal); J10.08 Influenza due to other identified influenza virus with other specified pneumonia; J12.9 Viral pneumonia, unspecified; J96.21 Acute and chronic respiratory failure with hypoxia; J44.1 Chronic obstructive pulmonary disease with (acute) exacerbation; J44.0 Chronic obstructive pulmonary disease with (acute) lower respiratory infection; J45.51 Severe persistent asthma with (acute) exacerbation; R65.20 Severe sepsis without septic shock; I73.9 Peripheral vascular disease, unspecified; E66.09 Other obesity due to excess calories; I10 Essential (primary) hypertension; F17.210 Nicotine dependence, cigarettes, uncomplicated; R79.89 Other specified abnormal findings of blood chemistry; Z88.8 Allergy status to other drugs, medicaments and biological substances; Z68.32 Body mass index [BMI] 32.0-32.9, adult; Z79.82 Long term (current) use of aspirin; Z79.52 Long term (current) use of systemic steroids; Z79.899 Other long term (current) drug therapy; Z28.310 Unvaccinated for COVID-19; Z20.822 Contact with and (suspected) exposure to COVID-19
CPT/HCPCS: 0241U; 36415; 71045; 71275; 80048; 80076; 81003; 82805; 83605; 83735; 83880; 84100; 84132; 84484; 84703; 85025; 85379; 85610; 85730; 87040; 93005; 94640; 96365; 96367; 96372; 99285; J0456; J0692; J1650; J2405; J2920; J2930; J3370; J7030; J7050; J7512; J7613; J7644; Q9967